=== PATIENT | male | born 1970 | race Caucasian/White ===

== ENCOUNTER 2016-05-24 09:38 | Emergency (ER) | payer OTHER ==
[~2016-05-24 09:38] MED LIST: ABIL5TAB5 PO; PROT1TAB2 PO; ZOLOFT PO
--- NOTE | 2016-05-24 11:37 | EDDOCDS ---
Physician Documentation [facility] Name: Mathew Delgado Age: 45 yrs Sex: Male : 1970 Arrival Date: 05/24/2016 Time: 09:38 Bed 30 Private MD: Unknown Pcp Disposition: 05/24/16 11:26 Discharged to Home/Self Care. Impression: Panic disorder [episodic paroxysmal anxiety] without agoraphobia. - Condition is Stable. - Discharge Instructions: Panic Attacks. - Prescriptions for Hydroxyzine HCl 25 mg Oral Tablet - take 1 tablet by ORAL route every 6 hours As needed; 30 tablet. - Medication Reconciliation, Local Pharmacy Hours form. - Follow up: Private Physician; When: As previously arranged; Reason: Recheck today's complaints, Continuance of care. Follow up: Emergency Department; When: As needed; Reason: Worsening of conditions. - Problem is new. - Symptoms have improved. Historical: - Allergies: Vicodin; - Home Meds: 1. lithium carbonate 300 mg Oral cap 1 cap every other day (Last dose: 05/22/2016) 2. Seroquel 50 mg Oral tab nightly (Last dose: 05/23/2016) 3. sertraline 100 mg oral tab 2 tabs once daily (Last dose: 05/23/2016) 4. pantoprazole 40 mg oral tab 1 tab once daily 5. Ventolin Rotahaler/Rotacaps Inhl 6. diazepam 5 mg Oral tab 1 tab daily hasnt taken in awhile- a week or more - PMHx: Anxiety; - PSHx: Cholecystectomy; - Social history: Smoking status: Patient states was never smoker of tobacco. No barriers to communication noted, The patient speaks fluent Macedonian, Speaks appropriately for age. - Family history: Not pertinent. - : The pt / caregiver states he / she is not on anticoagulants. Home medication list is obtained from the patient. - Exposure Risk Screening:: None identified. Vital Signs: 05/24 09:41 BP 133 / 67; Pulse 69; Resp 18; Temp 97.4(O); Pulse Ox 98% ; Weight 107.05 kg / 236 cmb lbs; Height 6 ft. 0 in. (182.88 cm); Pain 0/10; 11:35 BP 131 / 72; Pulse 65; Resp 20; Temp 97.9; Pulse Ox 96% ; Pain 0/10; jam1 09:41 Body Mass Index 32.01 (107.05 kg, 182.88 cm) cmb MDM: 09:50 ECG WITH READING ER PHYS+CARDIAG ordered. EDMS 10:45 REGULAR DIET PLASTIC THORPE+DIET ordered. EDMS 11:34 Financial registration complete. lg Signatures: Dispatcher [employer] EDMS Mary Hernandez, RN RN srm Michele Rome, Reg Reg lg Chuck Gutierrez PA-C PA-C ar2 Berenice Matthews RN RN mk4 MTDD
--- NOTE | 2016-05-24 11:37 | EDDOCDS ---
Nurse's Notes [facility] Name: Mathew Delgado Age: 45 yrs Sex: Male : 1970 Arrival Date: 05/24/2016 Time: 09:38 Bed 30 Private MD: Unknown Pcp Diagnosis: Panic disorder [episodic paroxysmal anxiety] without agoraphobia Presentation: 05/24 09:45 Presenting complaint: Patient states: i woke up at 0600 with heart racing, SOB and srm weakness. when asked if hes feeling anxious pt states " too the extreme". symptoms worse than normal for his anxiety attacks. denies SI or HI. 09:48 Mental Health Triage Level: Level 1- Pt displays no suicidal or homicidal ideations and srm does not appear to be a danger to self or others. Adult Sepsis Screening: The patient does not have new or worsening altered mentation. Patient's respiratory rate is less than 22. Systolic blood pressure is greater than 100. Patient has a qSOFA score of 0- Negative Sepsis Screen. Suicide/Homicide risk assessment- Patient denies SI and HI but presents with another emotional, behavioral or other mental health complaint. Suicide/Homicide risk assessment- The patient reports that he/she has not been admitted to an inpatient mental health facility in the last 30 days. The patient reports that he/she does not have a recent or current history of substance abuse. The patient reports that he/she has no prior history of suicide attempt and/or organized plan. The patient reports that he/she has not experienced a significant life altering event in the last 30 days. The patient reports that he/she has adequate social support. Status: Patient is not a child and family services specialist or dependent. Transition of care: patient was not received from another setting of care. 09:48 Acuity: ANTONETTE Level 3 srm 09:48 Method Of Arrival: Walkin/Carried/Asstd srm Triage Assessment: 09:48 General: Appears in no apparent distress, Behavior is appropriate for age, cooperative. srm Pain: Denies pain. HIV screening NA for this visit Offered previously. Historical: - Allergies: Vicodin; - Home Meds: 1. lithium carbonate 300 mg Oral cap 1 cap every other day (Last dose: 05/22/2016) 2. Seroquel 50 mg Oral tab nightly (Last dose: 05/23/2016) 3. sertraline 100 mg oral tab 2 tabs once daily (Last dose: 05/23/2016) 4. pantoprazole 40 mg oral tab 1 tab once daily 5. Ventolin Rotahaler/Rotacaps Inhl 6. diazepam 5 mg Oral tab 1 tab daily hasnt taken in awhile- a week or more - PMHx: Anxiety; - PSHx: Cholecystectomy; - Social history: Smoking status: Patient states was never smoker of tobacco. No barriers to communication noted, The patient speaks fluent Malagasy, Speaks appropriately for age. - Family history: Not pertinent. - : The pt / caregiver states he / she is not on anticoagulants. Home medication list is obtained from the patient. - Exposure Risk Screening:: None identified. Screenin:51 Screening information is obtained from the patient. Fall risk: No risks identified. srm Assistance ADL's: requires no assistance with activities of daily living. Abuse/DV Screen: The patient / caregiver reports he/she is: not in a situation that causes fear, pain or injury. Nutritional screening: No deficits noted. Advance Directives: There is no active DNR order. home support is adequate. Assessment: 09:51 General: Appears in no apparent distress, Behavior is appropriate for age, cooperative. srm Neurological: No deficits noted. EENT: No deficits noted. Cardiovascular: Reports palpitations, shortness of breath. Respiratory: No deficits noted. GI: No deficits noted. 10:45 General: Appears in no apparent distress, Behavior is appropriate for age, cooperative, srm AWAITING PROVIDER EXAM. 10:56 General: Appears in no apparent distress, social media marketing specialist in speaking with pt. 4 11:33 General: Appears in no apparent distress. 4 11:34 Reassessment: Patient states feeling better. Patient states symptoms have improved. 4 Social Work Consult: 10:59 Social Work Note: Pt presented c/o anxiety. Pt states he is in treatment at [facility], has appointment with Marlyn Ramirez next Monday. Pt denies SI/HI, no AH/VH. Pt states he came to ED primarily because he was having "palpitations" and is more concerned about getting something for his palpitations. Pt denies any unmet psycho-social needs at this time. Psych: 09:52 Mental Health Triage Level: Level 1- Pt displays no suicidal or homicidal ideations and srm does not appear to be a danger to self or others. 09:52 Objective: Patient is cooperative, Speech is normal. Vital Signs: 09:41 BP 133 / 67; Pulse 69; Resp 18; Temp 97.4(O); Pulse Ox 98% ; Weight 107.05 kg; Height 6 cmb ft. 0 in. (182.88 cm); Pain 0/10; 11:35 BP 131 / 72; Pulse 65; Resp 20; Temp 97.9; Pulse Ox 96% ; Pain 0/10; jam1 09:41 Body Mass Index 32.01 (107.05 kg, 182.88 cm) cmb Vitals: 09:41 Log In Time: May 24, 2016 at 09:38. cmb ED Course: 09:40 Patient visited by Mary Yousif. cmb 09:40 Patient moved to Waiting cmb 09:41 Unknown Pcp is Private Physician. cmb 09:49 Triage Initiated srm 09:50 Patient moved to 30 srm 09:51 The patient / caregiver is instructed regarding the plan of care and ED course. Patient srm has correct armband on for positive identification. 10:00 EKG done. (by ED staff). Reviewed by Lola Vance MD. srm 10:45 Patient visited by Mary Hernandez RN. srm 11:15 Chuck Gutier[facility] ar2 11:15 Lola Vance MD is Attending Physician. ar2 11:16 Patient visited by Chuck Gutierrez PA-C. ar2 11:34 No IV's were initiated during this patient's visit. No procedures done that require mk4 assistance. Order Results: There are currently no results for this order. Outcome: 11:26 Discharge ordered by Provider. ar2 11:34 Discharge Assessment: Patient awake, alert and oriented x 3. No cognitive and/or mk4 functional deficits noted. Patient verbalized understanding of disposition instructions. Patient awake and alert. patient administered narcotics - no. The following High Risk Discharge criteria are identified: None. Discharged to home ambulatory. Condition: good Condition: stable. No special radiology studies were completed. Property sent home with patient. 11:36 Patient left the ED. mk4 Signatures: Mary Hernandez, SIOBHAN RN srm Fabiana Velásquez, LADONNA CLERK GUIDE Sukhwinder Lawton, PSA PSA ac Chuck Gutierrez PA-C PAJamisonC ar2 Mary Yousif Margaret, RN RN mk4 MTDD
--- NOTE | 2016-05-25 19:36 | ECGEPIP ---
Stationary ECG Study [facility] - ED Test Date: 2016-05-24 Pat Name: NAVEED NAVARRO Department: Room: - Gender: M Swatcher: shahab : 1970 Requested By: Lola Vance Order Number: [id number] Reading MD: Lola Vance Measurements Intervals [place] Rate: 63 P: 42 HI: 137 QRS: -20 QRSD: 108 T: 22 QT: 375 QTc: 384 Interpretive Statements SINUS RHYTHM ?PRIOR INFERIOR INFARCT COMPARED 05/09/16 Electronically Signed On 05-25-2016 19:35:45 EST by Lola Vance
--- NOTE | 2016-05-26 12:38 | EDDOCDS ---
Physician Documentation [facility] Name: Mathew Delgado Age: 45 yrs Sex: Male : 1970 Arrival Date: 05/24/2016 Time: 09:38 Bed 30 Private MD: Unknown Pcp Disposition: 05/24/16 11:26 Discharged to Home/Self Care. Impression: Panic disorder [episodic paroxysmal anxiety] without agoraphobia. - Condition is Stable. - Discharge Instructions: Panic Attacks. - Prescriptions for Hydroxyzine HCl 25 mg Oral Tablet - take 1 tablet by ORAL route every 6 hours As needed; 30 tablet. - Medication Reconciliation, Local Pharmacy Hours form. - Follow up: Private Physician; When: As previously arranged; Reason: Recheck today's complaints, Continuance of care. Follow up: Emergency Department; When: As needed; Reason: Worsening of conditions. - Problem is new. - Symptoms have improved. Historical: - Allergies: Vicodin; - Home Meds: 1. lithium carbonate 300 mg Oral cap 1 cap every other day (Last dose: 05/22/2016) 2. Seroquel 50 mg Oral tab nightly (Last dose: 05/23/2016) 3. sertraline 100 mg oral tab 2 tabs once daily (Last dose: 05/23/2016) 4. pantoprazole 40 mg oral tab 1 tab once daily 5. Ventolin Rotahaler/Rotacaps Inhl 6. diazepam 5 mg Oral tab 1 tab daily hasnt taken in awhile- a week or more - PMHx: Anxiety; - PSHx: Cholecystectomy; - Social history: Smoking status: Patient states was never smoker of tobacco. No barriers to communication noted, The patient speaks fluent Occitan, Speaks appropriately for age. - Family history: Not pertinent. - : The pt / caregiver states he / she is not on anticoagulants. Home medication list is obtained from the patient. - Exposure Risk Screening:: None identified. Vital Signs: 05/24 09:41 BP 133 / 67; Pulse 69; Resp 18; Temp 97.4(O); Pulse Ox 98% ; Weight 107.05 kg / 236 cmb lbs; Height 6 ft. 0 in. (182.88 cm); Pain 0/10; 11:35 BP 131 / 72; Pulse 65; Resp 20; Temp 97.9; Pulse Ox 96% ; Pain 0/10; jam1 09:41 Body Mass Index 32.01 (107.05 kg, 182.88 cm) cmb MDM: 09:50 ECG WITH READING ER PHYS+CARDIAG ordered. EDMS 10:45 REGULAR DIET PLASTIC THORPE+DIET ordered. EDMS 11:34 Financial registration complete. lg 12:38 T-Sheet-- Draft Copy was scanned into MED[employer] and attached to record. gb 12:38 ECG/EKG was scanned into [employer] and attached to record. gb 05/25 07:51 [facility] Payment Agreement was scanned into [employer] and attached to record. lg Signatures: Dispatcher [employer] EDMS Mary Hernandez, RN RN srm Charity Trevino, Reg Reg gb Michele Rome, Reg Reg lg Chuck Gutierrez, PA-C PA-C ar2 Berenice Matthews RN RN mk4 The chart was reviewed and I authenticate all verbal orders and agree with the evaluation and treatment provided.Attachments: 05/24 12:38 T-Sheet-- Draft Copy gb 12:38 ECG/EKG gb 05/25 07:51 [facility] Payment Agreement lg Chart Complete MTDD
--- NOTE | 2016-05-26 12:38 | EDDOCDS ---
Physician Documentation [facility] Name: Mathew Delgado Age: 45 yrs Sex: Male : 1970 Arrival Date: 05/24/2016 Time: 09:38 Bed 30 Private MD: Unknown Pcp Disposition: 05/24/16 11:26 Discharged to Home/Self Care. Impression: Panic disorder [episodic paroxysmal anxiety] without agoraphobia. - Condition is Stable. - Discharge Instructions: Panic Attacks. - Prescriptions for Hydroxyzine HCl 25 mg Oral Tablet - take 1 tablet by ORAL route every 6 hours As needed; 30 tablet. - Medication Reconciliation, Local Pharmacy Hours form. - Follow up: Private Physician; When: As previously arranged; Reason: Recheck today's complaints, Continuance of care. Follow up: Emergency Department; When: As needed; Reason: Worsening of conditions. - Problem is new. - Symptoms have improved. Historical: - Allergies: Vicodin; - Home Meds: 1. lithium carbonate 300 mg Oral cap 1 cap every other day (Last dose: 05/22/2016) 2. Seroquel 50 mg Oral tab nightly (Last dose: 05/23/2016) 3. sertraline 100 mg oral tab 2 tabs once daily (Last dose: 05/23/2016) 4. pantoprazole 40 mg oral tab 1 tab once daily 5. Ventolin Rotahaler/Rotacaps Inhl 6. diazepam 5 mg Oral tab 1 tab daily hasnt taken in awhile- a week or more - PMHx: Anxiety; - PSHx: Cholecystectomy; - Social history: Smoking status: Patient states was never smoker of tobacco. No barriers to communication noted, The patient speaks fluent Maltese, Speaks appropriately for age. - Family history: Not pertinent. - : The pt / caregiver states he / she is not on anticoagulants. Home medication list is obtained from the patient. - Exposure Risk Screening:: None identified. Vital Signs: 05/24 09:41 BP 133 / 67; Pulse 69; Resp 18; Temp 97.4(O); Pulse Ox 98% ; Weight 107.05 kg / 236 cmb lbs; Height 6 ft. 0 in. (182.88 cm); Pain 0/10; 11:35 BP 131 / 72; Pulse 65; Resp 20; Temp 97.9; Pulse Ox 96% ; Pain 0/10; jam1 09:41 Body Mass Index 32.01 (107.05 kg, 182.88 cm) cmb MDM: 09:50 ECG WITH READING ER PHYS+CARDIAG ordered. EDMS 10:45 REGULAR DIET PLASTIC THORPE+DIET ordered. EDMS 11:34 Financial registration complete. lg 12:38 T-Sheet-- Draft Copy was scanned into MED[employer] and attached to record. gb 12:38 ECG/EKG was scanned into [employer] and attached to record. gb 05/25 07:51 [facility] Payment Agreement was scanned into MEDHOST and attached to record. lg Signatures: Dispatcher [employer] EDMS Mary Hernandez, RN RN srm Charity Trevino, Reg Reg gb Michele Rome, Reg Reg lg Chuck Gutierrez, PA-C PA-C ar2 Berenice Matthwes RN RN mk4 The chart was reviewed and I authenticate all verbal orders and agree with the evaluation and treatment provided.Attachments: 05/24 12:38 T-Sheet-- Draft Copy gb 12:38 ECG/EKG gb 05/25 07:51 [facility] Payment Agreement lg Chart Complete MTDD
--- NOTE | 2016-05-26 12:38 | EDDOCDS ---
Nurse's Notes [facility] Name: Mathew Delgado Age: 45 yrs Sex: Male : 1970 Arrival Date: 05/24/2016 Time: 09:38 Bed 30 Private MD: Unknown Pcp Diagnosis: Panic disorder [episodic paroxysmal anxiety] without agoraphobia Presentation: 05/24 09:45 Presenting complaint: Patient states: i woke up at 0600 with heart racing, SOB and srm weakness. when asked if hes feeling anxious pt states " too the extreme". symptoms worse than normal for his anxiety attacks. denies SI or HI. 09:48 Mental Health Triage Level: Level 1- Pt displays no suicidal or homicidal ideations and srm does not appear to be a danger to self or others. Adult Sepsis Screening: The patient does not have new or worsening altered mentation. Patient's respiratory rate is less than 22. Systolic blood pressure is greater than 100. Patient has a qSOFA score of 0- Negative Sepsis Screen. Suicide/Homicide risk assessment- Patient denies SI and HI but presents with another emotional, behavioral or other mental health complaint. Suicide/Homicide risk assessment- The patient reports that he/she has not been admitted to an inpatient mental health facility in the last 30 days. The patient reports that he/she does not have a recent or current history of substance abuse. The patient reports that he/she has no prior history of suicide attempt and/or organized plan. The patient reports that he/she has not experienced a significant life altering event in the last 30 days. The patient reports that he/she has adequate social support. Status: Patient is not a support services specialist or dependent. Transition of care: patient was not received from another setting of care. 09:48 Acuity: ANTONETTE Level 3 srm 09:48 Method Of Arrival: Walkin/Carried/Asstd srm Triage Assessment: 09:48 General: Appears in no apparent distress, Behavior is appropriate for age, cooperative. srm Pain: Denies pain. HIV screening NA for this visit Offered previously. Historical: - Allergies: Vicodin; - Home Meds: 1. lithium carbonate 300 mg Oral cap 1 cap every other day (Last dose: 05/22/2016) 2. Seroquel 50 mg Oral tab nightly (Last dose: 05/23/2016) 3. sertraline 100 mg oral tab 2 tabs once daily (Last dose: 05/23/2016) 4. pantoprazole 40 mg oral tab 1 tab once daily 5. Ventolin Rotahaler/Rotacaps Inhl 6. diazepam 5 mg Oral tab 1 tab daily hasnt taken in awhile- a week or more - PMHx: Anxiety; - PSHx: Cholecystectomy; - Social history: Smoking status: Patient states was never smoker of tobacco. No barriers to communication noted, The patient speaks fluent Egyptian, Speaks appropriately for age. - Family history: Not pertinent. - : The pt / caregiver states he / she is not on anticoagulants. Home medication list is obtained from the patient. - Exposure Risk Screening:: None identified. Screenin:51 Screening information is obtained from the patient. Fall risk: No risks identified. srm Assistance ADL's: requires no assistance with activities of daily living. Abuse/DV Screen: The patient / caregiver reports he/she is: not in a situation that causes fear, pain or injury. Nutritional screening: No deficits noted. Advance Directives: There is no active DNR order. home support is adequate. Assessment: 09:51 General: Appears in no apparent distress, Behavior is appropriate for age, cooperative. srm Neurological: No deficits noted. EENT: No deficits noted. Cardiovascular: Reports palpitations, shortness of breath. Respiratory: No deficits noted. GI: No deficits noted. 10:45 General: Appears in no apparent distress, Behavior is appropriate for age, cooperative, srm AWAITING PROVIDER EXAM. 10:56 General: Appears in no apparent distress, social contact worker in speaking with pt. 4 11:33 General: Appears in no apparent distress. 4 11:34 Reassessment: Patient states feeling better. Patient states symptoms have improved. 4 Social Work Consult: 10:59 Social Work Note: Pt presented c/o anxiety. Pt states he is in treatment at [facility], has appointment with Marlyn Ramirez next Monday. Pt denies SI/HI, no AH/VH. Pt states he came to ED primarily because he was having "palpitations" and is more concerned about getting something for his palpitations. Pt denies any unmet psycho-social needs at this time. Psych: 09:52 Mental Health Triage Level: Level 1- Pt displays no suicidal or homicidal ideations and srm does not appear to be a danger to self or others. 09:52 Objective: Patient is cooperative, Speech is normal. Vital Signs: 09:41 BP 133 / 67; Pulse 69; Resp 18; Temp 97.4(O); Pulse Ox 98% ; Weight 107.05 kg; Height 6 cmb ft. 0 in. (182.88 cm); Pain 0/10; 11:35 BP 131 / 72; Pulse 65; Resp 20; Temp 97.9; Pulse Ox 96% ; Pain 0/10; jam1 09:41 Body Mass Index 32.01 (107.05 kg, 182.88 cm) cmb Vitals: 09:41 Log In Time: May 24, 2016 at 09:38. cmb ED Course: 09:40 Patient visited by Mary Yousif. cmb 09:40 Patient moved to Waiting cmb 09:41 Unknown Pcp is Private Physician. cmb 09:49 Triage Initiated srm 09:50 Patient moved to 30 srm 09:51 The patient / caregiver is instructed regarding the plan of care and ED course. Patient srm has correct armband on for positive identification. 10:00 EKG done. (by ED staff). Reviewed by Lola Vance MD. srm 10:45 Patient visited by Mary Hernandez RN. srm 11:15 Chuck Gutierrez PA-C is PHCP. ar2 11:15 Lola Vance MD is Attending Physician. ar2 11:16 Patient visited by Chuck Gutierrez PA-C. ar2 11:34 No IV's were initiated during this patient's visit. No procedures done that require mk4 assistance. 12:38 T-Sheet-- Draft Copy was scanned into [employer] and attached to record. gb 12:38 ECG/EKG was scanned into [employer] and attached to record. gb 05/25 07:51 [facility] Payment Agreement was scanned into [employer] and attached to record. lg 20:04 EKG-ADULT Returned. EDMS Order Results: Radiology Order: EKG-ADULT Test: EKG-ADULT REASON FOR EXAMINATION: heart racing; Stationary ECG Study; [facility] - ED; ; Test Date: 2016-05-24; Pat Name: MATHEW DELGADO Department:; Room: -; Gender: M Infant Nanny: shahab; : 1970 Requested By: Lola Vance; Order Number: [id number] Reading MD: Lola Vance; Measurements; Intervals [place]; Rate: 63 P: 42; ID: [id number] QRS: -20; QRSD: 108 T: 22; QT: 375; QTc: 384; Interpretive Statements; SINUS RHYTHM; ?PRIOR INFERIOR INFARCT COMPARED 05/09/16; Electronically Signed On 05-25-2016 19:35:45 EST by Lola Vance; Outcome: 05/24 11:26 Discharge ordered by Provider. ar2 11:34 Discharge Assessment: Patient awake, alert and oriented x 3. No cognitive and/or mk4 functional deficits noted. Patient verbalized understanding of disposition instructions. Patient awake and alert. patient administered narcotics - no. The following High Risk Discharge criteria are identified: None. Discharged to home ambulatory. Condition: good Condition: stable. No special radiology studies were completed. Property sent home with patient. 11:36 Patient left the ED. mk4 Signatures: Dispatcher [employer] EDMS Mary Hernandez, RN RN srm Fabiana Velásquez, BARREL LATHE OPERATOR INSIDE BARREL LATHE OPERATOR INSIDE jam1 Sukhwinder Frye, PSA PSA ac Charity Trevino, Reg Reg gb Michele Rome, Reg Reg lg Chuck Gutierrez, PA-Feroz PAGeorgina ar2 Mary Yousif Margaret, RN RN mk4 Chart Complete MTDD
== END 2016-05-24 11:36 | disposition home or self-care (01) ==
LOC: M ED 09:38
DX: F41.0 Panic disorder [episodic paroxysmal anxiety] (principal); Z79.899 Other long term (current) drug therapy; Z79.51 Long term (current) use of inhaled steroids; Z88.8 Allergy status to other drugs, medicaments and biological substances

== ENCOUNTER 2016-07-13 14:04 | Emergency (ER) | payer OTHER ==
--- NOTE | 2016-07-13 15:18 | EDDOCDS ---
Physician Documentation [facility] Name: Mathew Delgado Age: 45 yrs Sex: Male : 1970 Arrival Date: 07/13/2016 Time: 14:04 Bed PR Private MD: Yuly Mckinney A Disposition: 07/13/16 15:08 Discharged to Home/Self Care. Impression: Low back pain. - Condition is Stable. - Discharge Instructions: Back Pain, Adult. - Prescriptions for Prednisone 20 mg Oral Tablet - take 2 tablets by ORAL route once daily for 5 days TAKE WITH FOOD, EARLIER IN THE DAY.; 10 tablet. - Medication Reconciliation, Local Pharmacy Hours form. - Follow up: Emergency Department; When: As needed; Reason: Worsening of conditions. Follow up: Private Physician; When: 2 - 3 days; Reason: Wound/Symptom Recheck, Recheck today's complaints, Continuance of care. - Problem is new. - Symptoms are unchanged. Historical: - Allergies: Vicodin; - Home Meds: 1. diazepam 5 mg Oral tab 1 tab daily hasnt taken in awhile- a week or more 2. lithium carbonate 300 mg Oral cap 1 cap every other day 3. pantoprazole 40 mg oral tab 1 tab once daily 4. Seroquel 50 mg Oral tab nightly 5. sertraline 100 mg oral tab 2 tabs once daily 6. Ventolin Rotahaler/Rotacaps Inhl - PMHx: Anxiety; - PSHx: Cholecystectomy; - Social history: Smoking status: Patient states was never smoker of tobacco. No barriers to communication noted, The patient speaks fluent Slovak. - Family history: Not pertinent. - : The pt / caregiver states he / she is not on anticoagulants. Home medication list is obtained from the patient. - Exposure Risk Screening:: None identified. Vital Signs: 07/13 14:07 BP 133 / 73; Pulse 73; Resp 19; Temp 96.6; Pulse Ox 98% ; Weight 108.86 kg / 240 lbs; elp Height 6 ft. 0 in. (182.88 cm); 15:16 BP 140 / 78; Pulse 65; Resp 18; Temp 97.8(O); Pulse Ox 98% on R/A; Pain 3/10; ck1 14:07 Body Mass Index 32.55 (108.86 kg, 182.88 cm) elp MDM: 14:28 Spine. Lumbosacral, Complete Ordered. EDMS 14:32 Financial registration complete. lg 14:37 [facility] Payment Agreement was scanned into [employer] and attached to record. lg Signatures: Dispatcher [employer] EDMS Ria Kruse RN RN mcp Ganter, LoriLee, Reg Reg lg Elizabeth Hancock RN RN ck1 Laura Chandler, ABRAHAM ROSARIO dt4 The chart was reviewed and I authenticate all verbal orders and agree with the evaluation and treatment provided.Attachments: 14:37 [facility] Payment Agreement lg MTDD
--- NOTE | 2016-07-13 15:18 | EDDOCDS ---
Nurse's Notes [facility] Name: Mathew Delgado Age: 45 yrs Sex: Male : 1970 Arrival Date: 07/13/2016 Time: 14:04 Bed PR Private MD: Yuly Mckinney A Diagnosis: Low back pain Presentation: 07/13 14:09 Presenting complaint: Patient states: Slipped and fell about a month ago--was seen at [facility] and was given steroid pill x1 and told to take Motrin. Pain persists--no change, worse in am. Radiates to groin and left leg. Adult Sepsis Screening: The patient does not have new or worsening altered mentation. Patient's respiratory rate is less than 22. Systolic blood pressure is greater than 100. Patient has a qSOFA score of 0- Negative Sepsis Screen. Suicide/Homicide risk assessment- the patient denies having any suicidal and/or homicidal ideations and does not present with any other emotional, behavioral or mental health complaints. Status: Patient is not a media services specialist or dependent. Transition of care: patient was not received from another setting of care. 14:09 Acuity: ANTONETTE Level 4 [facility] 14:09 Method Of Arrival: Walkin/Carried/Asstd [facility] Triage Assessment: 14:11 General: Appears uncomfortable, Behavior is cooperative. Pain: Location: lumbar area, mcp left low back and right low back Pain currently is 10 out of 10 on a pain scale. HIV screening NA for this visit Offered previously. Neurological: No deficits noted. Respiratory: Airway is patent Respiratory effort is even, unlabored. Derm: Skin is pink, warm & dry. Musculoskeletal: Circulation, motion, and sensation intact. Historical: - Allergies: Vicodin; - Home Meds: 1. diazepam 5 mg Oral tab 1 tab daily hasnt taken in awhile- a week or more 2. lithium carbonate 300 mg Oral cap 1 cap every other day 3. pantoprazole 40 mg oral tab 1 tab once daily 4. Seroquel 50 mg Oral tab nightly 5. sertraline 100 mg oral tab 2 tabs once daily 6. Ventolin Rotahaler/Rotacaps Inhl - PMHx: Anxiety; - PSHx: Cholecystectomy; - Social history: Smoking status: Patient states was never smoker of tobacco. No barriers to communication noted, The patient speaks fluent Chilean. - Family history: Not pertinent. - : The pt / caregiver states he / she is not on anticoagulants. Home medication list is obtained from the patient. - Exposure Risk Screening:: None identified. Screenin:30 Screening information is obtained from the patient. Fall risk: No risks identified. ck1 Assistance ADL's: requires no assistance with activities of daily living. Abuse/DV Screen: The patient / caregiver reports he/she is: not in a situation that causes fear, pain or injury. Nutritional screening: No deficits noted. Advance Directives: Currently, there is no health care proxy. home support is adequate. Assessment: 14:31 General: Appears in no apparent distress, comfortable, Behavior is appropriate for age, ck1 cooperative. Pain: Location: left low back Pain currently is 7 out of 10 on a pain scale. Pain radiates to left leg. Derm: Skin is intact, is healthy with good turgor, Skin is pink, warm & dry. Musculoskeletal: Circulation, motion, and sensation intact Range of motion intact in all extremities. 15:17 General: Appears in no apparent distress, comfortable, Behavior is appropriate for age, ck1 cooperative. Pain: Location: left low back Pain currently is 3 out of 10 on a pain scale. Neurological: Level of Consciousness is awake, alert, obeys commands, Oriented to person, place, time. Derm: Skin is pink, warm & dry. Musculoskeletal: Circulation, motion, and sensation intact Range of motion intact in all extremities. Vital Signs: 14:07 BP 133 / 73; Pulse 73; Resp 19; Temp 96.6; Pulse Ox 98% ; Weight 108.86 kg; Height 6 elp ft. 0 in. (182.88 cm); 15:16 BP 140 / 78; Pulse 65; Resp 18; Temp 97.8(O); Pulse Ox 98% on R/A; Pain 3/10; ck1 14:07 Body Mass Index 32.55 (108.86 kg, 182.88 cm) [facility] Vitals: 14:07 Log In Time: July 13, 2016 at 14:05. [facility] ED Course: 14:05 Patient visited by Ritu Quintana PCA. elp 14:05 Patient moved to Waiting [facility] 14:06 Yuly Mckinney is Private Physician. elp 14:07 Patient visited by Ritu Quintana PCA. elp 14:07 Patient moved to Pre RCE elp 14:10 Triage Initiated [facility] 14:11 Patient visited by Ria Kruse RN. [facility] 14:11 Patient moved to Triage 2 [facility] 14:20 Laura Chandler [facility]C [facility] dt4 14:20 Lola Vance MD is Attending Physician. dt4 14:20 Patient visited by Laura Chandler PA-C. dt4 14:31 The patient / caregiver is instructed regarding the plan of care and ED course. ck1 14:31 Patient moved to TR1 ck1 14:37 [facility] Payment Agreement was scanned into [employer] and attached to record. lg 14:52 Patient visited by Elizabeth Hancock,SIOBHAN. ck1 15:11 Patient moved to PR1 / 25 ck1 15:17 No IV's were initiated during this patient's visit. No procedures done that require ck1 assistance. Order Results: There are currently no results for this order. Outcome: 15:08 Discharge ordered by Provider. dt4 15:16 Discharge Assessment: Patient awake, alert and oriented x 3. No cognitive and/or ck1 functional deficits noted. Patient verbalized understanding of disposition instructions. patient administered narcotics - no. The following High Risk Discharge criteria are identified: None. Discharged to home ambulatory. Condition: stable. Discharge instructions given to patient, Instructed on discharge instructions, follow up and referral plans. medication usage, Demonstrated understanding of instructions, medications, Pt was receptive of discharge instructions/ teaching. Prescriptions given X 1. No special radiology studies were completed. Property :Personal belongings accompany Pt. 15:17 Patient left the ED. ck1 Signatures: Ria Kruse, SIOBHAN RN [facility] Michele Rome, Reg Reg Elizabeth Hancock,SIOBHAN RN ck Ritu Quintana PCA [employer] elp Laura Chandler PA-C PA-C dt4 MTDD
--- NOTE | 2016-07-13 16:25 | REP ---
LUMBAR SPINE: This study is compared to that on 09/06/2012. The bone density is normal. At L1-L2 left side, there is large bridging osteophyte or spurs unchanged. The vertebral bodies show degenerative spurring particularly anteriorly. This also extends or includes the thoracic segments. The disc spaces are maintained. The facets, SI and hip joints are within normal limits. The soft tissues of the abdomen and pelvis are unremarkable. 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 No disc space narrowing or other significant change. Unreviewed
--- NOTE | 2016-07-15 16:18 | EDDOCDS ---
Nurse's Notes [facility] Name: Mathew Delgado Age: 45 yrs Sex: Male : 1970 Arrival Date: 07/13/2016 Time: 14:04 Bed PR Private MD: Yuly Mckinney A Diagnosis: Low back pain Presentation: 07/13 14:09 Presenting complaint: Patient states: Slipped and fell about a month ago--was seen at [facility] and was given steroid pill x1 and told to take Motrin. Pain persists--no change, worse in am. Radiates to groin and left leg. Adult Sepsis Screening: The patient does not have new or worsening altered mentation. Patient's respiratory rate is less than 22. Systolic blood pressure is greater than 100. Patient has a qSOFA score of 0- Negative Sepsis Screen. Suicide/Homicide risk assessment- the patient denies having any suicidal and/or homicidal ideations and does not present with any other emotional, behavioral or mental health complaints. Status: Patient is not a service worker or dependent. Transition of care: patient was not received from another setting of care. 14:09 Acuity: ANTONETTE Level 4 [facility] 14:09 Method Of Arrival: Walkin/Carried/Asstd [facility] Triage Assessment: 14:11 General: Appears uncomfortable, Behavior is cooperative. Pain: Location: lumbar area, mcp left low back and right low back Pain currently is 10 out of 10 on a pain scale. HIV screening NA for this visit Offered previously. Neurological: No deficits noted. Respiratory: Airway is patent Respiratory effort is even, unlabored. Derm: Skin is pink, warm & dry. Musculoskeletal: Circulation, motion, and sensation intact. Historical: - Allergies: Vicodin; - Home Meds: 1. diazepam 5 mg Oral tab 1 tab daily hasnt taken in awhile- a week or more 2. lithium carbonate 300 mg Oral cap 1 cap every other day 3. pantoprazole 40 mg oral tab 1 tab once daily 4. Seroquel 50 mg Oral tab nightly 5. sertraline 100 mg oral tab 2 tabs once daily 6. Ventolin Rotahaler/Rotacaps Inhl - PMHx: Anxiety; - PSHx: Cholecystectomy; - Social history: Smoking status: Patient states was never smoker of tobacco. No barriers to communication noted, The patient speaks fluent Swiss. - Family history: Not pertinent. - : The pt / caregiver states he / she is not on anticoagulants. Home medication list is obtained from the patient. - Exposure Risk Screening:: None identified. Screenin:30 Screening information is obtained from the patient. Fall risk: No risks identified. ck1 Assistance ADL's: requires no assistance with activities of daily living. Abuse/DV Screen: The patient / caregiver reports he/she is: not in a situation that causes fear, pain or injury. Nutritional screening: No deficits noted. Advance Directives: Currently, there is no health care proxy. home support is adequate. Assessment: 14:31 General: Appears in no apparent distress, comfortable, Behavior is appropriate for age, ck1 cooperative. Pain: Location: left low back Pain currently is 7 out of 10 on a pain scale. Pain radiates to left leg. Derm: Skin is intact, is healthy with good turgor, Skin is pink, warm & dry. Musculoskeletal: Circulation, motion, and sensation intact Range of motion intact in all extremities. 15:17 General: Appears in no apparent distress, comfortable, Behavior is appropriate for age, ck1 cooperative. Pain: Location: left low back Pain currently is 3 out of 10 on a pain scale. Neurological: Level of Consciousness is awake, alert, obeys commands, Oriented to person, place, time. Derm: Skin is pink, warm & dry. Musculoskeletal: Circulation, motion, and sensation intact Range of motion intact in all extremities. Vital Signs: 14:07 BP 133 / 73; Pulse 73; Resp 19; Temp 96.6; Pulse Ox 98% ; Weight 108.86 kg; Height 6 elp ft. 0 in. (182.88 cm); 15:16 BP 140 / 78; Pulse 65; Resp 18; Temp 97.8(O); Pulse Ox 98% on R/A; Pain 3/10; ck1 14:07 Body Mass Index 32.55 (108.86 kg, 182.88 cm) [facility] Vitals: 14:07 Log In Time: July 13, 2016 at 14:05. [facility] ED Course: 14:05 Patient visited by Ritu Quintana PCA. elp 14:05 Patient moved to Waiting [facility] 14:06 Yuly Mckinney is Private Physician. elp 14:07 Patient visited by Ritu Quintana PCA. elp 14:07 Patient moved to Pre RCE elp 14:10 Triage Initiated mcp 14:11 Patient visited by Ria Kruse RN. mcp 14:11 Patient moved to Triage 2 mcp 14:20 [facility] dt4 14:20 Lola Vance MD is Attending Physician. dt4 14:20 Patient visited by Laura Chandler PA-C. dt4 14:31 The patient / caregiver is instructed regarding the plan of care and ED course. ck1 14:31 Patient moved to TR1 ck1 14:37 [facility] Payment Agreement was scanned into [employer] and attached to record. lg 14:52 Patient visited by Elizabeth Hancock RN. ck1 15:11 Patient moved to PR1 / 25 ck1 15:17 No IV's were initiated during this patient's visit. No procedures done that require ck1 assistance. 16:33 Spine. Lumbosacral, Complete Returned. EDMS 07/14 19:17 T-Sheet-- Draft Copy was scanned into [employer] and attached to record. klr Order Results: Radiology Order: Spine. Lumbosacral, Complete Test: Spine. Lumbosacral, Complete REASON FOR EXAMINATION: low back pain; ; LUMBAR SPINE:; ; This study is compared to that on 09/06/2012.; ; The bone density is normal.; ; At L1-L2 left side, there is large bridging osteophyte or spurs unchanged. The; vertebral bodies show degenerative spurring particularly anteriorly. This also; extends or includes the thoracic segments. The disc spaces are maintained.; ; The facets, SI and hip joints are within normal limits.; ; The soft tissues of the abdomen and pelvis are unremarkable.; ; IMPRESSION:; There is degenerative spurring of the spine with bridging osteophytes at L1-L2; left side. No disc space narrowing or other significant change.; ; Unreviewed; Outcome: 07/13 15:08 Discharge ordered by Provider. dt4 15:16 Discharge Assessment: Patient awake, alert and oriented x 3. No cognitive and/or ck1 functional deficits noted. Patient verbalized understanding of disposition instructions. patient administered narcotics - no. The following High Risk Discharge criteria are identified: None. Discharged to home ambulatory. Condition: stable. Discharge instructions given to patient, Instructed on discharge instructions, follow up and referral plans. medication usage, Demonstrated understanding of instructions, medications, Pt was receptive of discharge instructions/ teaching. Prescriptions given X 1. No special radiology studies were completed. Property :Personal belongings accompany Pt. 15:17 Patient left the ED. ck1 Signatures: Dispatcher [employer] EDRia Mathew, RN RN Michele Pepper, Stevo Reg Elizabeth Reddy RN RN ck1 Ritu Quintana, LADONNA MACHINE JOINT CUTTER Laura Sharma, PA-Feroz PAJamisonC dt4 Sol Oates Chart Complete MTDD
--- NOTE | 2016-07-15 16:18 | EDDOCDS ---
Physician Documentation [facility] Name: Mathew Delgado Age: 45 yrs Sex: Male : 1970 Arrival Date: 07/13/2016 Time: 14:04 Bed PR Private MD: Yuly Mckinney A Disposition: 07/13/16 15:08 Discharged to Home/Self Care. Impression: Low back pain. - Condition is Stable. - Discharge Instructions: Back Pain, Adult. - Prescriptions for Prednisone 20 mg Oral Tablet - take 2 tablets by ORAL route once daily for 5 days TAKE WITH FOOD, EARLIER IN THE DAY.; 10 tablet. - Medication Reconciliation, Local Pharmacy Hours form. - Follow up: Emergency Department; When: As needed; Reason: Worsening of conditions. Follow up: Private Physician; When: 2 - 3 days; Reason: Wound/Symptom Recheck, Recheck today's complaints, Continuance of care. - Problem is new. - Symptoms are unchanged. Historical: - Allergies: Vicodin; - Home Meds: 1. diazepam 5 mg Oral tab 1 tab daily hasnt taken in awhile- a week or more 2. lithium carbonate 300 mg Oral cap 1 cap every other day 3. pantoprazole 40 mg oral tab 1 tab once daily 4. Seroquel 50 mg Oral tab nightly 5. sertraline 100 mg oral tab 2 tabs once daily 6. Ventolin Rotahaler/Rotacaps Inhl - PMHx: Anxiety; - PSHx: Cholecystectomy; - Social history: Smoking status: Patient states was never smoker of tobacco. No barriers to communication noted, The patient speaks fluent Frisian. - Family history: Not pertinent. - : The pt / caregiver states he / she is not on anticoagulants. Home medication list is obtained from the patient. - Exposure Risk Screening:: None identified. Vital Signs: 07/13 14:07 BP 133 / 73; Pulse 73; Resp 19; Temp 96.6; Pulse Ox 98% ; Weight 108.86 kg / 240 lbs; elp Height 6 ft. 0 in. (182.88 cm); 15:16 BP 140 / 78; Pulse 65; Resp 18; Temp 97.8(O); Pulse Ox 98% on R/A; Pain 3/10; ck1 14:07 Body Mass Index 32.55 (108.86 kg, 182.88 cm) elp MDM: 14:28 Spine. Lumbosacral, Complete Ordered. EDMS 14:32 Financial registration complete. :37 [facility] Payment Agreement was scanned into [employer] and attached to record. 07/14 19:17 T-Sheet-- Draft Copy was scanned into [employer] and attached to record. klr Signatures: Dispatcher [employer] EDSD Ria Kruse RN RN Michele Pepper, Reg Reg Xochilt-Elizabeth CortezRN RN ck1 Laura Chandler, ABRAHAM PAGeorgina moore4 Sol Oates The chart was reviewed and I authenticate all verbal orders and agree with the evaluation and treatment provided.Attachments: 07/13 14:37 [facility] Payment Agreement 07/14 19:17 T-Sheet-- Draft Copy klr Chart Complete MTDD
--- NOTE | 2016-07-15 16:18 | EDDOCDS ---
Physician Documentation [facility] Name: Mathew Delgado Age: 45 yrs Sex: Male : 1970 Arrival Date: 07/13/2016 Time: 14:04 Bed PR Private MD: Yuly Mckinney A Disposition: 07/13/16 15:08 Discharged to Home/Self Care. Impression: Low back pain. - Condition is Stable. - Discharge Instructions: Back Pain, Adult. - Prescriptions for Prednisone 20 mg Oral Tablet - take 2 tablets by ORAL route once daily for 5 days TAKE WITH FOOD, EARLIER IN THE DAY.; 10 tablet. - Medication Reconciliation, Local Pharmacy Hours form. - Follow up: Emergency Department; When: As needed; Reason: Worsening of conditions. Follow up: Private Physician; When: 2 - 3 days; Reason: Wound/Symptom Recheck, Recheck today's complaints, Continuance of care. - Problem is new. - Symptoms are unchanged. Historical: - Allergies: Vicodin; - Home Meds: 1. diazepam 5 mg Oral tab 1 tab daily hasnt taken in awhile- a week or more 2. lithium carbonate 300 mg Oral cap 1 cap every other day 3. pantoprazole 40 mg oral tab 1 tab once daily 4. Seroquel 50 mg Oral tab nightly 5. sertraline 100 mg oral tab 2 tabs once daily 6. Ventolin Rotahaler/Rotacaps Inhl - PMHx: Anxiety; - PSHx: Cholecystectomy; - Social history: Smoking status: Patient states was never smoker of tobacco. No barriers to communication noted, The patient speaks fluent Luxembourgish. - Family history: Not pertinent. - : The pt / caregiver states he / she is not on anticoagulants. Home medication list is obtained from the patient. - Exposure Risk Screening:: None identified. Vital Signs: 07/13 14:07 BP 133 / 73; Pulse 73; Resp 19; Temp 96.6; Pulse Ox 98% ; Weight 108.86 kg / 240 lbs; elp Height 6 ft. 0 in. (182.88 cm); 15:16 BP 140 / 78; Pulse 65; Resp 18; Temp 97.8(O); Pulse Ox 98% on R/A; Pain 3/10; ck1 14:07 Body Mass Index 32.55 (108.86 kg, 182.88 cm) elp MDM: 14:28 Spine. Lumbosacral, Complete Ordered. EDMS 14:32 Financial registration complete. :37 [facility] Payment Agreement was scanned into [employer] and attached to record. 07/14 19:17 T-Sheet-- Draft Copy was scanned into [employer] and attached to record. klr Signatures: Dispatcher [employer] EDAK Ria Kruse RN RN Michele Pepper, Reg Reg Xochilt-Elizabeth CortezRN RN ck1 Laura Chandler, ABRAHAM PAGeorgina moore4 Sol Oates The chart was reviewed and I authenticate all verbal orders and agree with the evaluation and treatment provided.Attachments: 07/13 14:37 [facility] Payment Agreement 07/14 19:17 T-Sheet-- Draft Copy klr Chart Complete MTDD
== END 2016-07-13 15:17 | disposition home or self-care (01) ==
LOC: M ED 14:04
DX: M54.5 Low back pain (principal); F41.9 Anxiety disorder, unspecified; Z79.899 Other long term (current) drug therapy; Z88.5 Allergy status to narcotic agent

== ENCOUNTER 2018-12-09 00:10 | Emergency (ER) | payer OTHER ==
[~2018-12-09] VITALS: Ht 182.9 cm; Wt 118.2 kg
[~2018-12-09 00:10] MED LIST changes: +ABIL1TAB11 PO; -ABIL5TAB5 PO
[2018-12-09 00:11] VITALS: BP 156/83
== END 2018-12-09 02:00 | disposition left against medical advice (07) ==
LOC: M ED 00:10
DX: R06.02 Shortness of breath (principal); Z53.21 Procedure and treatment not carried out due to patient leaving prior to being seen by health care provider

== ENCOUNTER 2020-06-22 08:53 | Emergency (ER) | payer OTHER ==
--- OUTSIDE RECORDS SUMMARY | 2020-06-22 09:03 | CCD ---
Author Author [facility] Organization [facility] Address Unknown Phone Unavailable Care Team Providers [employer] Name Role Phone Pinky Lawler Unavailable PROBLEMS Type Condition ICD9-CM Code VSO89-EH Code Onset Dates Condition S tatus SNOMED Code Notes Problem Morbid (severe) obesity due to excess calories E66 .01 Active 381746326 Problem Encounter for immunization Z23 Active 26794 6002 Problem Allergic rhinitis J30.9 Active 20083831 Problem Weight loss R63.4 Active 99212470 Problem Vaccine counseling Z71.89 Active 781035339 Problem Hyperlipidemia E78.5 Active 49366972 Problem Panic disorder without agoraphobia F41.0 Activ e 93901240 Problem Post-traumatic stress disorder F43.10 Active 4 0720186 Problem Body mass index (BMI) 45.0-49.9, adult Z68.42 A ctive 777905350 Problem Panic F41.0 Active 09289691 Problem BMI 40.0-44.9, adult Z68.41 Active 272840424 Problem Sciatica, left side M54.32 Active 89425576 Problem Anxiety disorder, unspecified F41.9 Active 19 4726288 Problem Sciatica, right side M54.31 Active 47263372182 436505 Problem Borderline personality disorder F60.3 Active 15306575 Problem Other and unspecified hyperlipidemia 272.4 Act [place] 10871055 Problem Gastro-esophageal reflux disease without esophagitis K21.9 Active 899524127 Problem Adjustment disorder with mixed anxiety and depressed mood F43.23 Active 277139880 r/t pandemic Problem Class 2 obesity due to exces s calories without serious comorbidity in adult, unspecified BMI E66.09 Active 941149345 Problem Benign prostatic hyperplasia , unspecified whether lower urinary tract symptoms present N40.0 Active 433379245 ALLERGIES No Known Allergies ENCOUNTERS from 1972 to 2020-04-30 Encounter Location Date Provider Diagnosis [address] [address] Apr, Pinky Lawler IMMUNIZATIONS Vaccine Route Administration Date Status INFLUENZA 3 YRS AND OLDER Preservative free Unknown Apr 24, 2018 Administered INFLUENZA 3 YRS AND OLDER Preservative free IM Intramuscular Mar 28, 2016 Administered SOCIAL HISTORY Sex Assigned At : Social History Observation Description Sex Assigned At Unknown Alcohol Screen Question Answer Notes Did you have a drink containing alcohol in the past year? No Points 0 Interpretation Negative REASON FOR REFERRAL No Information VITAL SIGNS No information MEDICATIONS Medication SIG (Take, Route, Frequency, Duration) Notes Start Da te End Date Status Albuterol Sulfate HFA 108 (90 Base) MCG/ACT 2 puffs as needed Inhalation every 4 hrs for 17 Active Halcion 0.25 MG 1 tablet Orally qhs prn only Jul, Active Lipitor 20 MG 1 tablet Orally Once a day for 90 days 2019 Active HydrOXYzine HCl 25 MG 2 Orally every 8 hrs Jun, Active physical therapy eval and tx - - - -3x per week for -6 weeks Feb, Active Pantoprazole Sodium 40 MG 1 tablet Orally Once a day for 30 days Active Seroquel 100 MG ii tablet Orally HS Active Saphris 10 MG 1 tablet under the tongue an d allow to dissolve Sublingual Twice a day Active Flomax 0.4 MG 1 capsule Orally Once a day for 90 day(s) Feb, Active [place] Carbonate 300 MG TAKE ONE TABLET BY MOUTH IN THE EVENING Or ally qd Active Propranolol HCl 20 MG 1 tablet Orally tid Nov, Active physical therapy eval and tx - - - -3x per week for -6 weeks Feb, Active Zoloft 100 MG TAKE ONE TABLET BY MOUTH EVERY DAY Orally Once a day Active PROCEDURES No Information RESULTS No Results REASON FOR VISIT Disability Records MEDICAL (GENERAL) HISTORY Type Description Date Medical History GERD Medical History Anxiety Medical History Obesity Medical History Allergic rhinitis Surgical History Laparscopic Cholecystectomy 04/05/12 Hospitalization History Chest pain Goals Section No Information Health Concerns No Information MEDICAL EQUIPMENT No Information MENTAL STATUS No Information FUNCTIONAL STATUS No Information ASSESSMENTS No Information PLAN OF TREATMENT Next Appt Details Provider Name:Pinky Lawler, 05-12 01:20:00 PM, [address] [place] [address], [phone], Insurance Providers Payer Name Payer Address Payer Phone Insured Name Patient Relati onship to Insured Coverage Start Date Coverage End Date [employer] - [employer] [address] [place] [id number] Mathew Delgado self
--- OUTSIDE RECORDS SUMMARY | 2020-06-22 09:04 | CCD ---
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 Name Role Phone SYMENOW, G CHRISTOPHER PA Unavailable Unavailable SYMENOW, G CHRISTOPHER PA Unavailable Unavailable SYMENOW, G CHRISTOPHER PA Unavailable Unavailable SYMENOW, G CHRISTOPHER PA Unavailable Unavailable SYMENOW, G CHRISTOPHER PA Unavailable Unavailable SYMENOW, G CHRISTOPHER PA Unavailable Unavailable SYMENOW, G CHRISTOPHER PA Unavailable Unavailable SYMENOW, G CHRISTOPHER PA Unavailable Unavailable SYMENOW, G CHRISTOPHER PA Unavailable Unavailable SYMENOW, G CHRISTOPHER PA Unavailable Unavailable SYMENOW, G CHRISTOPHER PA Unavailable Unavailable SYMENOW, G CHRISTOPHER PA Unavailable Unavailable SYMENOW, G CHRISTOPHER PA Unavailable Unavailable SYMENOW, G CHRISTOPHER PA Unavailable Unavailable SYMENOW, G CHRISTOPHER PA Unavailable Unavailable SYMENOW, G CHRISTOPHER PA Unavailable Unavailable SYMENOW, G CHRISTOPHER PA Unavailable Unavailable GERALDOAyo PA Unavailable Unavailable GERALDOAyo PA Unavailable Unavailable GERALDOAyo PA Unavailable Unavailable GERALDOAyo PA Unavailable Unavailable GERALDOAyo PA Unavailable Unavailable GERALDOAyo PA Unavailable Unavailable GERALDOAyo PA Unavailable Unavailable GERALDOAyo PA Unavailable Unavailable GERALDOAyo PA Unavailable Unavailable GERALDOAyo PA Unavailable Unavailable GERALDOAyo PA Unavailable Unavailable GERALDOAyo PA Unavailable Unavailable GERALDOAyo PA Unavailable Unavailable GERALDO, L RICKY PA Unavailable Unavailable GERALDO, L RICKY PA Unavailable Unavailable GERALDO, L RICKY PA Unavailable Unavailable GERALDO, L RICKY PA Unavailable Unavailable GERALDO, L RICKY PA Unavailable Unavailable GERALDO, L RICKY PA Unavailable Unavailable CHRISTINE, ANTONIO PA Unavailable Unavailable CHRISTINE, ANTONIO PA Unavailable Unavailable CHRISTINE, ANTONIO PA Unavailable Unavailable CHRISTINE, ANTONIO PA Unavailable Unavailable CHRISTINE, ANTONIO PA Unavailable Unavailable CHRISTINE, ANTONIO PA Unavailable Unavailable CHRISTINE, ANTONIO PA Unavailable Unavailable CHRISTINE, ANTONIO PA Unavailable Unavailable CHRISTINE, ANTONIO PA Unavailable Unavailable CHRISTINE, ANTONIO PA Unavailable Unavailable CHRISTINE, ANTONIO PA Unavailable Unavailable CHRISTINE, ANTONIO PA Unavailable Unavailable CHRISTINE, ANTONIO PA Unavailable Unavailable CHRISTINE, ANTONIO PA Unavailable Unavailable CHRISTINE, ANTONIO PA Unavailable Unavailable Ayo HAYDEN MD Unavailable Unavailable Ayo HAYDEN MD Unavailable Unavailable Ayo HAYDEN MD Unavailable Unavailable CHIN, W PENG PA Unavailable Unavailable CHIN, W PENG PA Unavailable Unavailable CHIN, W PENG PA Unavailable Unavailable CHIN, W PENG PA Unavailable Unavailable CHIN, W PENG PA Unavailable Unavailable CHIN, W PENG PA Unavailable Unavailable CHIN, W PENG PA Unavailable Unavailable CHIN, W PENG PA Unavailable Unavailable CHIN, W PENG PA Unavailable Unavailable CHNI, W PENG PA Unavailable Unavailable CHIN, W PENG PA Unavailable Unavailable CHIN, W PENG PA Unavailable Unavailable CHIN, W PENG PA Unavailable Unavailable CHIN, W PENG PA Unavailable Unavailable CHIN, W PENG PA Unavailable Unavailable CHIN, W PENG PA Unavailable Unavailable CHIN, W PENG PA Unavailable Unavailable CHIN, W PENG PA Unavailable Unavailable CHIN, W PENG PA Unavailable Unavailable CHIN, W PENG PA Unavailable Unavailable CHIN, W PENG PA Unavailable Unavailable CHIN, W PENG PA Unavailable Unavailable CHIN, W PENG PA Unavailable Unavailable CHIN, W PENG PA Unavailable Unavailable CHIN, W PENG PA Unavailable Unavailable CHIN, W PENG PA Unavailable Unavailable CHIN, W PENG PA Unavailable Unavailable CHIN, W PNEG PA Unavailable Unavailable CHIN, W PENG PA Unavailable Unavailable CHIN, W PENG PA Unavailable Unavailable CHIN, W PENG PA Unavailable Unavailable CHIN, W PENG PA Unavailable Unavailable CHIN, W PENG PA Unavailable Unavailable CHIN, W PENG PA Unavailable Unavailable CHIN, W PENG PA Unavailable Unavailable CHIN, W PENG PA Unavailable Unavailable CHIN, W PENG PA Unavailable Unavailable CHIN, W PENG PA Unavailable Unavailable CHIN, W PENG PA Unavailable Unavailable CHIN, W PENG PA Unavailable Unavailable CHIN, W PENG PA Unavailable Unavailable CHIN, W PENG PA Unavailable Unavailable CHIN, W PENG PA Unavailable Unavailable CHIN, W PENG PA Unavailable Unavailable CHIN, W PENG PA Unavailable Unavailable CHIN, W PENG PA Unavailable Unavailable GERMAIN, RODOLFO CUCO PA Unavailable Unavailable GERMAIN, RODOLFO CUCO PA Unavailable Unavailable GERMAIN, RODOLFO CUCO PA Unavailable Unavailable GERMAIN, RODOLFO CUCO PA Unavailable Unavailable GERMAIN, RODOLFO CUCO PA Unavailable Unavailable GERMAIN, RODOLFO CUCO PA Unavailable Unavailable GERMAIN, RODOLFO CUCO PA Unavailable Unavailable GERMAIN, RODOLFO CUCO PA Unavailable Unavailable GERMAIN, RODOLFO CUCO PA Unavailable Unavailable GERMAIN, RODOLFO CUCO PA Unavailable Unavailable GERMAIN, RODOLFO CUCO PA Unavailable Unavailable GERMAIN, RODOLFO CUCO PA Unavailable Unavailable GERMAIN, RODOLFO CUCO PA Unavailable Unavailable GERMAIN, RODOLFO CUCO PA Unavailable Unavailable GERMAIN, RODOLFO CUCO PA Unavailable Unavailable GERMAIN, RODOLFO CUCO PA Unavailable Unavailable GERMAIN, RODOLFO CUCO PA Unavailable Unavailable GERMAIN, RODOLFO CUCO PA Unavailable Unavailable GERMAIN, RODOLFO CUCO PA Unavailable Unavailable GERMAIN, RODOLFO CUCO PA Unavailable Unavailable GERMAIN, RODOLFO CUCO PA Unavailable Unavailable MERLE DE LA GARZA MD Unavailable Unavailable MERLE DE LA GARZA MD Unavailable Unavailable MERLE DE LA GARZA MD Unavailable Unavailable MERLE DE LA GARZA MD Unavailable Unavailable MERLE DE LA GARZA MD Unavailable Unavailable MERLE DE LA GARZA MD Unavailable Unavailable MERLE DE LA GARZA MD Unavailable Unavailable MERLE DE LA GARZA MD Unavailable Unavailable MERLE DE LA GARZA MD Unavailable Unavailable COLIN SR, NAVEED HAYES MD Unavailable Unavailable COLIN SR, NAVEED HAYES MD Unavailable Unavailable COLIN SR, NAVEED HAYES MD Unavailable Unavailable COLIN SR, NAVEED HAYES MD Unavailable Unavailable COLIN SR, NAVEED HAYES MD Unavailable Unavailable COLIN SR, NAVEED HAYES MD Unavailable Unavailable COLIN SR, NAVEED HAYES MD Unavailable Unavailable COLIN SR, NAVEED HAYES MD Unavailable Unavailable COLIN SR, NAVEED HAYES MD Unavailable Unavailable COLIN SR, NAVEED HAYES MD Unavailable Unavailable COLIN SR, NAVEDE HAYES MD Unavailable Unavailable COLIN SR, NAVEED HAYES MD Unavailable Unavailable COLIN SR, NAVEED HAYES MD Unavailable Unavailable COLIN SR, NAVEED HAYES MD Unavailable Unavailable COLIN SR, NAVEED HAYES MD Unavailable Unavailable COLIN SR, NAVEED HAYES MD Unavailable Unavailable COLIN SR, NAVEED HAYES MD Unavailable Unavailable COLIN SR, NAVEED HAYES MD Unavailable Unavailable COLIN SR, NAVEED HAYES MD Unavailable Unavailable COLIN SR, NAVEED HAYSE MD Unavailable Unavailable COLIN SR, NAVEED HAYES MD Unavailable Unavailable COLIN SR, NAVEED HAYES MD Unavailable Unavailable COLIN SR, NAVEED HAYES MD Unavailable Unavailable COLIN SR, NAVEED HAYES MD Unavailable Unavailable COLIN SR, NAVEED HAYES MD Unavailable Unavailable COLIN SR, NAVEED HAYES MD Unavailable Unavailable COLIN SR, NAVEED HAYES MD Unavailable Unavailable COLIN SR, NAVEED HAYES MD Unavailable Unavailable COLIN SR, NAVEED HAYES MD Unavailable Unavailable COLIN SR, NAVEED HAYES MD Unavailable Unavailable COLIN SR, NAVEED HAYES MD Unavailable Unavailable COLIN SR, NAVEED HAYES MD Unavailable Unavailable COLIN SR, NAVEED HAYES MD Unavailable Unavailable COLIN SR, NAVEED HAYES MD Unavailable Unavailable COLIN SR, NAVEED HAYES MD Unavailable Unavailable COLIN SR, NAVEED HAYES MD Unavailable Unavailable COLIN SR, NAVEED HAYES MD Unavailable Unavailable COLIN SR, NAVEED HAYES MD Unavailable Unavailable COLIN SR, NAVEED HAYES MD Unavailable Unavailable COLIN SR, NAVEED HAYES MD Unavailable Unavailable COLIN SR, NAVEED HAYES MD Unavailable Unavailable COLIN SR, NAVEED HAYES MD Unavailable Unavailable COLIN SR, NAVEED HAYES MD Unavailable Unavailable COLIN SR, NAVEED HAYES MD Unavailable Unavailable COLIN SR, NAVEED HAYES MD Unavailable Unavailable COLIN SR, NAVEED HAYES MD Unavailable Unavailable COLIN SR, NAVEED HAYES MD Unavailable Unavailable COLIN SR, NAVEED HAYES MD Unavailable Unavailable COLIN SR, NAVEED HAYES MD Unavailable Unavailable COLIN SR, NAVEED HAYES MD Unavailable Unavailable COLIN SR, NAVEED HAYES MD Unavailable Unavailable COLIN SR, NAVEED HAYES MD Unavailable Unavailable COLIN SR, NAVEED HAYES MD Unavailable Unavailable COLIN SR, NAVEED HAYES MD Unavailable Unavailable Calixto, M Nichelle RPA Unavailable Unavailable Calixto, M Nichelle RPA Unavailable Unavailable Calixto, M Nichelle RPA Unavailable Unavailable Calixto, M Nichelle RPA Unavailable Unavailable Calixto, M Nichelle RPA Unavailable Unavailable Calixto, M Nichelle RPA Unavailable Unavailable Calixto, M Nichelle RPA Unavailable Unavailable Calixto, M Nichelle RPA Unavailable Unavailable Calixto, M Nichelle RPA Unavailable Unavailable Calixto, M Nichelle RPA Unavailable Unavailable Calixto, M Nichelle RPA Unavailable Unavailable Calixto, M Nichelle RPA Unavailable Unavailable Calixto, M Nichelle RPA Unavailable Unavailable Calixto, M Nichelle RPA Unavailable Unavailable Calixto, M Nichelle RPA Unavailable Unavailable Calixto, M Nichelle RPA Unavailable Unavailable Calixto, M Nichelle RPA Unavailable Unavailable Calixto, M Nichelle RPA Unavailable Unavailable Calixto, M Nichelle RPA Unavailable Unavailable Calixto, M Nichelle RPA Unavailable Unavailable Calixto, M Nichelle RPA Unavailable Unavailable Calixto, M Nichelle RPA Unavailable Unavailable Calixto, M Nichelle RPA Unavailable Unavailable Calixto, M Nichelle RPA Unavailable Unavailable Calixto, M Nichelle RPA Unavailable Unavailable Calixto, M Nichelle RPA Unavailable Unavailable Calixto, M Nichelle RPA Unavailable Unavailable Calixto, M Nichelle RPA Unavailable Unavailable Calixto, M Nichelle RPA Unavailable Unavailable Calixto, M Nichelle RPA Unavailable Unavailable Calixto, M Nichelle RPA Unavailable Unavailable Calixto, M Nichelle RPA Unavailable Unavailable Calixto, M Nichelle RPA Unavailable Unavailable Calixto, M Nichelle RPA Unavailable Unavailable Calixto, M Nichelle RPA Unavailable Unavailable Calixto, M Nichelle RPA Unavailable Unavailable Calixto, M Nichelle RPA Unavailable Unavailable Calixto, M Nichelle RPA Unavailable Unavailable Calixto, M Nichelle RPA Unavailable Unavailable Calixto, M Nichelle RPA Unavailable Unavailable Calixto, M Nichelle RPA Unavailable Unavailable BEATRIZ VALE MD Unavailable Unavailable BEATRIZ VALE MD Unavailable Unavailable BEATRIZ VALE MD Unavailable Unavailable BEATRIZ VALE MD Unavailable Unavailable BEATRIZ VALE MD Unavailable Unavailable BEATRIZ VALE MD Unavailable Unavailable BEATRIZ VLAE MD Unavailable Unavailable BEATRIZ VALE MD Unavailable Unavailable BEATRIZ VALE MD Unavailable Unavailable BEATRIZ VALE MD Unavailable Unavailable AVITIA, KEENAN JOE ADOPTION COUNSELOR-C, MSN Unavailable Unavailab le AVITIA, KEENAN JOE ADOPTION COUNSELOR-C, MSN Unavailable Unavailab le AVITIA, KEENAN JOE ADOPTION COUNSELOR-C, MSN Unavailable Unavailab le AVITIA, KEENAN JOE ADOPTION COUNSELOR-C, MSN Unavailable Unavailab le AVITIA, KEENAN JOE ADOPTION COUNSELOR-C, MSN Unavailable Unavailab le AVITIA, KEENAN JOE ADOPTION COUNSELOR-C, MSN Unavailable Unavailab le AVITIA, KEENAN JOE ADOPTION COUNSELOR-C, MSN Unavailable Unavailab le AVITIA, KEENAN JOE ADOPTION COUNSELOR-C, MSN Unavailable Unavailab le AVITIA, KEENAN JOE ADOPTION COUNSELOR-C, MSN Unavailable Unavailab le AVITIA, KEENAN JOE ADOPTION COUNSELOR-C, MSN Unavailable Unavailab le AVITIA, KEENAN JOE ADOPTION COUNSELOR-C, MSN Unavailable Unavailab le AVITIA, KEENAN JOE ADOPTION COUNSELOR-C, MSN Unavailable Unavailab le AVITIA, KEENAN JOE ADOPTION COUNSELOR-C, MSN Unavailable Unavailab le AVITIA, KEENAN JOE ADOPTION COUNSELOR-C, MSN Unavailable Unavailab le AVITIA, KEENAN JOE ADOPTION COUNSELOR-C, MSN Unavailable Unavailab le AVITIA, KEENAN JOE ADOPTION COUNSELOR-C, MSN Unavailable Unavailab le AVITIA, KEENAN JOE ADOPTION COUNSELOR-C, MSN Unavailable Unavailab le AVITIA, KEENAN JOE ADOPTION COUNSELOR-C, MSN Unavailable Unavailab le AVIITA, KEENAN JOE ADOPTION COUNSELOR-C, MSN Unavailable Unavailab le AVITIA, KEENAN JOE ADOPTION COUNSELOR-C, MSN Unavailable Unavailab le AVITIA, KEENAN JOE ADOPTION COUNSELOR-C, MSN Unavailable Unavailab le AVITIA, KEENAN JOE ADOPTION COUNSELOR-C, MSN Unavailable Unavailab le AVITIA, KEENAN JOE ADOPTION COUNSELOR-C, MSN Unavailable Unavailab le AVITIA, KEENAN JOE ADOPTION COUNSELOR-C, MSN Unavailable Unavailab le AVITIA, KEEANN JOE ADOPTION COUNSELOR-C, MSN Unavailable Unavailab le AVITIA, KEENAN JOE ADOPTION COUNSELOR-C, MSN Unavailable Unavailab le AVITIA, KEENAN JOE ADOPTION COUNSELOR-C, MSN Unavailable Unavailab le AVITIA, KEENAN JOE ADOPTION COUNSELOR-C, MSN Unavailable Unavailab le AVITIA, KEENAN JOE ADOPTION COUNSELOR-C, MSN Unavailable Unavailab le AVITIA, KEENAN JOE ADOPTION COUNSELOR-C, MSN Unavailable Unavailab le AVITIA, KEENAN JOE ADOPTION COUNSELOR-C, MSN Unavailable Unavailab le AVITIA, KEENAN JOE ADOPTION COUNSELOR-C, MSN Unavailable Unavailab le AVITIA, KEENAN JOE ADOPTION COUNSELOR-C, MSN Unavailable Unavailab le AVITIA, KEENAN JOE ADOPTION COUNSELOR-C, MSN Unavailable Unavailab le AVITIA, KEENAN JOE ADOPTION COUNSELOR-C, MSN Unavailable Unavailab le AVITIA, KEENAN JOE ADOPTION COUNSELOR-C, MSN Unavailable Unavailab le AVITIA, KEENAN JOE ADOPTION COUNSELOR-C, MSN Unavailable Unavailab le AVITIA, KEENAN JOE ADOPTION COUNSELOR-C, MSN Unavailable Unavailab le AVITIAKEENAN HOLLEYA ADOPTION COUNSELOR-C, MSN Unavailable Unavailab le AVITIAKEENAN HOLLEYA ADOPTION COUNSELOR-C, MSN Unavailable Unavailab le AVITIA, KEENAN CALLEA ADOPTION COUNSELOR-C, MSN Unavailable Unavailab le AVITIA, KEENAN CALLEA ADOPTION COUNSELOR-C, MSN Unavailable Unavailab le AVITIA, KEENAN CALLEA ADOPTION COUNSELOR-C, MSN Unavailable Unavailab le SONJA, JORGE EWA PA-C Unavailable Unavailable SONJA, JORGE EWA PA-C Unavailable Unavailable SONJA, JORGE EWA PA-C Unavailable Unavailable SONJA, JORGE EWA PA-C Unavailable Unavailable SONJA, JORGE EWA PA-C Unavailable Unavailable SONJA, JORGE EWA PA-C Unavailable Unavailable SONJA, JORGE EWA PA-C Unavailable Unavailable SONJA, JORGE EWA PA-C Unavailable Unavailable SONJA, JORGE EWA PA-C Unavailable [facility]available [facility] Unavailable Unavailable DESJARLAIS, ASHLEIGH VERTICAL ROLL OPERATOR Unavailable Unavailable DESJARLAIS, ASHLEIGH VERTICAL ROLL OPERATOR Unavailable Unavailable DESJARLAIS, ASHLEIGH VERTICAL ROLL OPERATOR Unavailable Unavailable DESJARLAIS, ASHLEIGH VERTICAL ROLL OPERATOR Unavailable Unavailable DESJARLAIS, ASHLEIGH VERTICAL ROLL OPERATOR Unavailable Unavailable DESJARLAIS, ASHLEIGH VERTICAL ROLL OPERATOR Unavailable Unavailable DESJARLAIS, ASHLEIGH VERTICAL ROLL OPERATOR Unavailable Unavailable DESJARLAIS, ASHLEIGH VERTICAL ROLL OPERATOR Unavailable Unavailable DESJARLAIS, ASHLEIGH VERTICAL ROLL OPERATOR Unavailable Unavailable Rydberg, Loreta PA Unavailable Unavailable Rydberg, Loreta PA Unavailable Unavailable Rydberg, Loreta PA Unavailable Unavailable Rydberg, Loreta PA Unavailable Unavailable Rydberg, Loreta PA Unavailable Unavailable Rydberg, Loreta PA Unavailable Unavailable Rydberg, Loreta PA Unavailable Unavailable Rydberg, Loreta PA Unavailable Unavailable Rydberg, Loreta PA Unavailable Unavailable Rydberg, Loreta PA Unavailable Unavailable Rydberg, Loreta PA Unavailable Unavailable Rydberg, Loreta PA Unavailable Unavailable Rydberg, Loreta PA Unavailable Unavailable Rydberg, Loreta PA Unavailable Unavailable Rydberg, Loreta PA Unavailable Unavailable Rydberg, Loreta PA Unavailable Unavailable Rydberg, Loreta PA Unavailable Unavailable Rydberg, Loreta PA Unavailable Unavailable Rydberg, Loreta PA Unavailable Unavailable Rydberg, Loreta PA Unavailable Unavailable Rydberg, Loreta PA Unavailable Unavailable Rydberg, Loreta PA Unavailable Unavailable Re-disclosure Warning The records that you are about to access may contain information from federally-assisted alcohol or drug abuse programs. If such information is present, then the following federally mandated warning applies: This information has been disclosed to you from records protected by federal confidentiality rules (42 CFR part 2). The federal rules prohibit you from making any further disclosure of this information unless further disclosure is expressly permitted by the written consent of the person to whom it pertains or as otherwise permitted by 42 CFR part 2. A general authorization for the release of medical or other information is NOT sufficient for this purpose. The Federal rules restrict any use of the information to criminally investigate or prosecute any alcohol or drug abuse patient.The records that you are about to access may contain highly sensitive health information, the redisclosure of which is protected by Article 27-F of the [facility] Public Health law. If you continue you may have access to information: Regarding HIV / AIDS; Provided by facilities licensed or operated by the [facility] Office of Mental Health; or Provided by the [facility] Office for People With Developmental Disabilities. If such information is present, then the following [facility] mandated warning applies: This information has been disclosed to you from confidential records which are protected by state law. State law prohibits you from making any further disclosure of this information without the specific written consent of the person to whom it pertains, or as otherwise permitted by law. Any unauthorized further disclosure in violation of state law may result in a fine or nursing home sentence or both. A general authorization for the release of medical or other information is NOT sufficient authorization for further disc losure. Allergies and Adverse Reactions Type Description Substance Reaction Status Data Source(s ) Drug allergy MDX - Nka - No Known Allergies MDX - Nka - No Known [facility] Providers Location Date Indications Data Source(s ) Outpatient Attender: ASHLEIGH MATSON NP 06/12/2020 11: 33:00 AM [facility] Outpatient Attender: ASHLEIGH MATSON NP 05/12/2020 01: 20:00 PM [facility] Outpatient [facility] 04/30/2020 12:00:00 AM EST eCW1 ([facility]) Outpatient Attender: ASHLEIGH MATSON NP 04/21/2020 09: 22:00 AM [facility] Outpatient Attender: ASHLEIGH MATSON VERTICAL ROLL OPERATOR 04/09/2020 11: 40:00 AM [facility] Outpatient Attender: ASHLEIGH MATSON NP 03/24/2020 10: 00:00 AM [facility] Outpatient Attender: ABIGAIL COLIN SR 03/22/2020 10:36:00 AM [facility] Emergency Attender: ANTONIO KING PAReferrer: BIJU COLIN SR EMERGENCY ROOM-ER 03/17/2020 07:34:00 AM EDT - 03/17/2020 08:51:00 AM [facility] Patient discharged. Outpatient Attender: ASHLEIGH MATSON VERTICAL ROLL OPERATOR 03/10/2020 11: 40:00 AM [facility] Outpatient Attender: ABIGAIL COLIN SR 03/02 02:58:00 PM EDT - 03/18/2020 10:36:00 AM [facility] Patient discharged. Outpatient Attender: ABIGAIL COLIN SRReferrer: ABIGAIL Douglas SR 03/02/2020 02:06:00 PM EDT - 03/02/2020 02:06:00 PM EDT [facility] Outpatient Attender: ABIGAIL COLIN SRReferrer: EBONY MAE MSN [facility]GENCY [facility] 02/27/2020 12:43:00 PM EDT - 02/27/2020 12:43:00 PM [facility] Outpatient [facility] 02/27/2020 12:00:00 AM EDT eCW1 ([facility]) Emergency Attender: CUCO GROVES PAReferrer: Calin ROE, MSN EMERGENCY ROOM-ER 02/23/2020 05:42:00 AM EDT - 02/23/2020 06:05:00 AM [facility] Patient discharged. Outpatient Attender: ASHLEIGH MATSON VERTICAL ROLL OPERATOR 02/20/2020 11: 40:00 AM [facility] Outpatient Attender: ASHLEIGH MATSON NP 02/06/2020 11: 40:00 AM [facility] Emergency Attender: RICKY CHOW FELISA ttender: VARUN GARCIA PAReferrer: JOE ROE, MSN EMERGENCY ROOM-ER 02/05/2020 08:30:00 PM EDT - 02/05/2020 08:58:00 PM [facility] Patient discharged. Outpatient Attender: VARUN GARCIA PAConsultant: [id number] 02/05/2020 07:55:00 PM [facility] Outpatient Attender: ASHLEIGH MATSON VERTICAL ROLL OPERATOR 01/22/2020 11: 40:00 AM [facility] Outpatient Attender: ASHLEIGH CHARLESRLAIS VERTICAL ROLL OPERATOR 01/08/2020 11: 40:00 AM [facility] Outpatient Attender: ASHLEIGH CHARLESRLAIS VERTICAL ROLL OPERATOR 12/25/2019 01: 00:00 PM [facility] Outpatient [facility] 12/18/2019 12:00:00 AM [facility] ([facility]) Outpatient Attender: EWA CASILLAS PA-C 12/16/2019 11:22:00 AM [facility] Outpatient Attender: ASHLEIGH CHARLESRLAIS VERTICAL ROLL OPERATOR 12/10/2019 11: 00:00 AM [facility] Outpatient Attender: ASHLEIGH ANNMARIEJARLAIS VERTICAL ROLL OPERATOR 11/19/2019 11: 20:00 AM [facility] Outpatient Attender: Nichelle De [facility] 10/29/2019 07:35:42 PM [facility] Outpatient Attender: Nichelle De [facility] 10/19/2019 12:10:22 AM [facility] Outpatient Attender: ASHLEIGH CHARLESRLAIS VERTICAL ROLL OPERATOR 10/18/2019 01: 00:00 PM [facility] Outpatient Attender: ASHLEIGH DESJARLAIS VERTICAL ROLL OPERATOR 09/20/2019 11: 00:00 AM [facility] Outpatient Attender: ASHLEIGH DESJARLAIS VERTICAL ROLL OPERATOR 09/06/2019 02: 18:00 PM [facility] Outpatient Attender: ASHLEIGH ANNMARIEJARLAIS VERTICAL ROLL OPERATOR 08/23/2019 11: 00:00 AM [facility] Outpatient Attender: ASHLEIGH ANNMARIEJARLAIS VERTICAL ROLL OPERATOR 07/30/2019 10: 40:00 AM [facility] Outpatient Attender: ASHLEIGH ANNMARIEJARLAIS VERTICAL ROLL OPERATOR 06/28/2019 12: 59:00 PM [facility] Outpatient Attender: ASHLEIGH MATSON NP 06/07/2019 10: 34:00 AM [facility] Outpatient Attender: ASHLEIGH MATSON NP 05/03/2019 02: 00:00 PM [facility] Outpatient Attender: ASHLEIGH MATSON VERTICAL ROLL OPERATOR 04/05/2019 01: 59:00 PM [facility] Emergency Attender: ANTONIO VASQUEZ 06/19 12:17:00 PM [facility] - 06/19/2014 12:30:00 PM [facility] Emergency Attender: MERLE DE LA GARZA MD 015 04:15:00 PM [facility] 06/02/2014 07:15:00 PM [facility] Inpatient Attender: PENG Appiahitter: BETARIZ KINSEY MD 07/11/2013 12:40:00 PM [facility] 07/12/2013 01:22:00 AM [facility] Emergency Attender: ISRA HAYDEN MD 06:14:00 PM [facility] 04/03/2013 08:39:00 PM [facility] Outpatient Attender: Loreta Miller PAReferrer: Loreta VASQUEZ 09/18/2012 02:32:00 PM [facility] Medications Medication Brand Name Start Date Product Form Dose Route Admi nistrative Instructions Pharmacy Instructions Status Indications Reaction Description Data Source(s) atorvastatin 20 MG Oral Tablet ATORVASTATIN CALCIUM 02/28/2020 1 2:00:00 AM EDT tablet 90 TAKE ONE TABLET BY MOUTH EVERY D AY TAKE ONE TABLET BY MOUTH EVERY DAY SOLD: 02/29/2020 [facility] atorvastatin 20 MG Oral Tablet ATORVASTATIN CALCIUM 02/28/2020 1 2:00:00 AM EDT tablet 90 TAKE ONE TABLET BY MOUTH EVERY D AY TAKE ONE TABLET BY MOUTH EVERY DAY SOLD: 06/01/2020 [facility] physical therapy eval and tx - UNK 02/27/2020 12:00:00 AM EDT active physical therapy eval and tx - eCW1 ([facility]) physical therapy eval and tx - UNK 02/27/2020 12:00:00 AM EDT active physical therapy eval and tx - [facility] [facility] eval and tx - UNK 02/27/2020 12:00:00 AM EDT active physical therapy eval and tx - eCW1 ([facility]) physical therapy eval and tx - UNK 02/27/2020 12:00:00 AM EDT active physical therapy eval and tx - eCW1 ([facility]) atorvastatin 20 MG Oral Tablet [Lipitor] Lipitor 20 MG Lipit or 20 MG 02/27/2020 12:00:00 AM EDT 1.0 {tablet} active Li pitor 20 MG eCW1 ([facility]) atorvastatin 20 MG Oral Tablet [Lipitor] Lipitor 20 MG Lipit or 20 MG 02/27/2020 12:00:00 AM EDT 1.0 {tablet} active Li pitor 20 MG eCW1 ([facility]) Tamsulosin hydrochloride 0.4 MG Oral Capsule [Flomax] Flomax 0.4 MG Flomax 0.4 MG 02/27/2020 12:00:00 AM EDT 1.0 {capsule} active Flomax 0.4 MG eCW1 ([facility]) physical therapy eval and tx - UNK 02/27/2020 12:00:00 AM EDT active physical therapy eval and tx - eCW1 ([facility]) Tamsulosin hydrochloride 0.4 MG Oral Capsule [Flomax] Flomax 0.4 MG Flomax 0.4 MG 02/27/2020 12:00:00 AM EDT 1.0 {capsule} active Flomax 0.4 MG eCW1 ([facility]) 100 mg 02/26/2020 12:00:00 AM EDT tablet 30 TAKE ONE TABLET BY MOUTH EVERY DAY TAKE ONE TABLET BY MOUTH EVERY DAY SOLD: 04/30/2020 [facility] 100 mg 02/26/2020 12:00:00 AM EDT tablet 30 TAKE ONE TABLET BY MOUTH EVERY DAY TAKE ONE TABLET BY MOUTH EVERY DAY SOLD: 02/27/2020 [facility] 100 mg 02/26/2020 12:00:00 AM EDT tablet 30 TAKE ONE TABLET BY MOUTH EVERY DAY TAKE ONE TABLET BY MOUTH EVERY DAY SOLD: 06/01/2020 [facility] 100 mg 02/26/2020 12:00:00 AM EDT tablet 30 TAKE ONE TABLET BY MOUTH EVERY DAY TAKE ONE TABLET BY MOUTH EVERY DAY SOLD: 03/30/2020 [facility] quetiapine 100 MG Oral Tablet QUETIAPINE FUMARATE 02/24/2020 12: 00:00 AM EDT tablet 60 TAKE TWO TABLETS BY MOUTH AT BED TIME TAKE TWO TABLETS BY MOUTH AT BEDTIME SOLD: 02/26/2020 [facility] quetiapine 100 MG Oral Tablet QUETIAPINE FUMARATE 02/24/2020 12: 00:00 AM EDT tablet 60 TAKE TWO TABLETS BY MOUTH AT BED TIME TAKE TWO TABLETS BY MOUTH AT BEDTIME SOLD: 04/30/2020 [facility] quetiapine 100 MG Oral Tablet QUETIAPINE FUMARATE 02/24/2020 12: 00:00 AM EDT tablet 60 TAKE TWO TABLETS BY MOUTH AT BED TIME TAKE TWO TABLETS BY MOUTH AT BEDTIME SOLD: 06/01/2020 [facility] quetiapine 100 MG Oral Tablet QUETIAPINE FUMARATE 02/24/2020 12: 00:00 AM EDT tablet 60 TAKE TWO TABLETS BY MOUTH AT BED TIME TAKE TWO TABLETS BY MOUTH AT BEDTIME SOLD: 03/30/2020 [facility] 0.4 mg 02/23/2020 12:00:00 AM EDT capsule 14 TAKE ONE CAPSULE BY MOUTH EVERY DAY DIRECTED TAKE ONE CAPSULE BY MOUTH EVERY DAY DIRECTED SOLD: 02/23/2020 [facility] 500 mg 02/23/2020 12:00:00 AM EDT tablet 10 TAKE ONE TABLET BY MOUTH TWICE A DAY DIRECTED TAKE ONE TABLET BY MOUTH TWICE A DAY DIRECTED SOLD: 02/23/2020 [facility] 25 mg 02/21/2020 12:00:00 AM EDT tablet 180 TAKE TWO TABLETS BY MOUTH EVERY 8 HOURS TAKE TWO TABLETS BY MOUTH EVERY 8 HOURS SOLD: 06/01/2020 [facility] 10 mg 02/21/2020 12:00:00 AM EDT tablet, sublingual 60 PLACE 1 TABLET UNDER THE TONGUE TWICE A DAY PLACE 1 TABLET UNDER THE TONGUE TWICE A DAY SOLD: 02/23/2020 [facility] 25 mg 02/21/2020 12:00:00 AM EDT tablet 180 TAKE TWO TABLETS BY MOUTH EVERY 8 HOURS TAKE TWO TABLETS BY MOUTH EVERY 8 HOURS SOLD: 03/22/2020 [facility] 25 mg 02/21/2020 12:00:00 AM EDT tablet 180 TAKE TWO TABLETS BY MOUTH EVERY 8 HOURS TAKE TWO TABLETS BY MOUTH EVERY 8 HOURS SOLD: 04/22/2020 [facility] 20 mg 02/21/2020 12:00:00 AM EDT tablet 90 TAKE ONE TABLET BY MOUTH THREE TIMES A DAY TAKE ONE TABLET BY MOUTH THREE TIMES A DAY SOLD: 04/22/2020 [facility] 300 mg 02/21/2020 12:00:00 AM EDT tablet 30 TAKE ONE TABLET BY MOUTH EVERY EVENING TAKE ONE TABLET BY MOUTH EVERY EVENING SOLD: 02/23/2020 [facility] 10 mg 02/21/2020 12:00:00 AM EDT tablet, sublingual 60 PLACE 1 TABLET UNDER THE TONGUE TWICE A DAY PLACE 1 TABLET UNDER THE TONGUE TWICE A DAY SOLD: 04/22/2020 [facility] 10 mg 02/21/2020 12:00:00 AM EDT tablet, sublingual [address] PL[address] 1 TABLET UNDER THE TONGUE TWICE A DAY PLACE 1 TABLET UNDER THE TONGUE TWICE A DAY SOLD: 03/22/2020 [facility] 25 mg 02/21/2020 12:00:00 AM EDT tablet 180 TAKE TWO TABLETS BY MOUTH EVERY 8 HOURS TAKE TWO TABLETS BY MOUTH EVERY 8 HOURS SOLD: 02/23/2020 [facility] 10 mg 02/21/2020 12:00:00 AM EDT tablet, sublingual 60 PLACE 1 TABLET UNDER THE TONGUE TWICE A DAY PLACE 1 TABLET UNDER THE TONGUE TWICE A DAY SOLD: 06/01/2020 [facility] 300 mg 02/21/2020 12:00:00 AM EDT tablet 30 TAKE ONE TABLET BY MOUTH EVERY EVENING TAKE ONE TABLET BY MOUTH EVERY EVENING SOLD: 04/22/2020 [facility] 20 mg 02/21/2020 12:00:00 AM EDT tablet 90 TAKE ONE TABLET BY MOUTH THREE TIMES A DAY TAKE ONE TABLET BY MOUTH THREE TIMES A DAY SOLD: 03/22/2020 [facility] 300 mg 02/21/2020 12:00:00 AM EDT tablet 30 TAKE ONE TABLET BY MOUTH EVERY EVENING TAKE ONE TABLET BY MOUTH EVERY EVENING SOLD: 06/01/2020 [facility] 20 mg 02/21/2020 12:00:00 AM EDT tablet 90 TAKE ONE TABLET BY MOUTH THREE TIMES A DAY TAKE ONE TABLET BY MOUTH THREE TIMES A DAY SOLD: 06/01/2020 [facility] 20 mg 02/21/2020 12:00:00 AM EDT tablet 90 TAKE ONE TABLET BY MOUTH THREE TIMES A DAY TAKE ONE TABLET BY MOUTH THREE TIMES A DAY SOLD: 02/23/2020 [facility] 300 mg 02/21/2020 12:00:00 AM EDT tablet 30 TAKE ONE TABLET BY MOUTH EVERY EVENING TAKE ONE TABLET BY MOUTH EVERY EVENING SOLD: 03/22/2020 [facility] 100 mg 02/06/2020 12:00:00 AM EDT tablet 6 TAKE ONE TABLET BY MOUTH THREE TIMES A DAY TAKE ONE TABLET BY MOUTH THREE TIMES A DAY SOLD: 02/06/2020 [facility] 300 mg 02/06/2020 12:00:00 AM EDT capsule 20 TAKE ONE CAPSULE BY MOUTH TWICE A DAY TAKE ONE CAPSULE BY MOUTH TWICE A DAY SOLD: 02/06/2020 [facility] pantoprazole 40 MG Delayed Release Oral Tablet PANTOPRAZOLE SODIUM 01/31/2020 12:00:00 AM EDT tablet,delayed release (DR/EC) 30 T DOMINIC ONE TABLET BY MOUTH EVERY DAY TAKE ONE TABLET BY MOUTH EVERY DAY SOLD: 06/01/2020 [facility] 40 mg 01/31/2020 12:00:00 AM EDT tablet,delayed release (DR/EC) 30 TAKE ONE TABLET BY MOUTH EVERY DAY TAKE ONE TABLET BY MOUTH EVERY DAY SOLD: 02/01/2020 [facility] pantoprazole 40 MG Delayed Release Oral Tablet PANTOPRAZOLE SODIUM 01/31/2020 12:00:00 AM EDT tablet,delayed release (DR/EC) 30 T DOMINIC ONE TABLET BY MOUTH EVERY DAY TAKE ONE TABLET BY MOUTH EVERY DAY SOLD: 04/30/2020 [facility] pantoprazole 40 MG Delayed Release Oral Tablet PANTOPRAZOLE SODIUM 01/31/2020 12:00:00 AM EDT tablet,delayed release (DR/EC) 30 T DOMINIC ONE TABLET BY MOUTH EVERY DAY TAKE ONE TABLET BY MOUTH EVERY DAY SOLD: 03/30/2020 [facility] pantoprazole 40 MG Delayed Release Oral Tablet PANTOPRAZOLE SODIUM 01/31/2020 12:00:00 AM EDT tablet,delayed release (DR/EC) 30 T DOMINIC ONE TABLET BY MOUTH EVERY DAY TAKE ONE TABLET BY MOUTH EVERY DAY SOLD: 02/27/2020 [facility] 20 mg 12/11/2019 12:00:00 AM EDT tablet 60 TAKE ONE TABLET BY MOUTH TWICE A DAY TAKE ONE TABLET BY MOUTH TWICE A DAY SOLD: 12/12/2019 [facility] Propranolol Hydrochloride 20 MG Oral Tablet Propranolo l HCl 20 MG Propranolol HCl 20 MG 12/10/2019 12:00:00 AM EDT 1.0 {tablet} ac tive Propranolol HCl 20 MG eCW1 ([facility]) Propranolol Hydrochloride 20 MG Oral Tablet Propranolo l HCl 20 MG Propranolol HCl 20 MG 12/10/2019 12:00:00 AM EDT 1.0 {tablet} ac tive Propranolol HCl 20 MG eCW1 ([facility]) Propranolol Hydrochloride 20 MG Oral Tablet Propranolo l HCl 20 MG Propranolol HCl 20 MG 12/10/2019 12:00:00 AM EDT 1.0 {tablet} ac tive Propranolol HCl 20 MG eCW1 ([facility]) 5 mg 12/03/2019 12:00:00 AM EDT tablet 60 TAKE ONE TABLET BY MOUTH TWO TIMES A DAY NEEDED MAXIMUM DAILY DOSE = 2 TABLETS TAKE ONE TABLET BY MOUTH TWO TIMES A DAY NEEDED MAXIMUM DAILY DOSE = 2 TABLETS SOLD: 12/05/2019 [facility] 100 mg 11/08/2019 12:00:00 AM EDT tablet 30 TAKE ONE TABLET BY MOUTH EVERY DAY TAKE ONE TABLET BY MOUTH EVERY DAY SOLD: 01/18/2020 [facility] 100 mg 11/08/2019 12:00:00 AM EDT tablet 30 TAKE ONE TABLET BY MOUTH EVERY DAY TAKE ONE TABLET BY MOUTH EVERY DAY SOLD: 11/19/2019 [facility] 100 mg 11/08/2019 12:00:00 AM EDT tablet 30 TAKE ONE TABLET BY MOUTH EVERY DAY TAKE ONE TABLET BY MOUTH EVERY DAY SOLD: 12/18/2019 [facility] quetiapine 100 MG Oral Tablet QUETIAPINE FUMARATE 10/29/2019 12: 00:00 AM EDT tablet 60 TAKE TWO TABLETS BY MOUTH AT BED TIME TAKE TWO TABLETS BY MOUTH AT BEDTIME SOLD: 10/31/2019 [facility] quetiapine 100 MG Oral Tablet QUETIAPINE FUMARATE 10/29/2019 12: 00:00 AM EDT tablet 60 TAKE TWO TABLETS BY MOUTH AT BED TIME TAKE TWO TABLETS BY MOUTH AT BEDTIME SOLD: 12/02/2019 [facility] quetiapine 100 MG Oral Tablet QUETIAPINE FUMARATE 10/29/2019 12: 00:00 AM EDT tablet 60 TAKE TWO TABLETS BY MOUTH AT BED TIME TAKE TWO TABLETS BY MOUTH AT BEDTIME SOLD: 01/30/2020 [facility] quetiapine 100 MG Oral Tablet QUETIAPINE FUMARATE 10/29/2019 12: 00:00 AM EDT tablet 60 TAKE TWO TABLETS BY MOUTH AT BED TIME TAKE TWO TABLETS BY MOUTH AT BEDTIME SOLD: 01/01/2020 [facility] 10 mg 10/19/2019 12:00:00 AM EDT tablet, sublingual 60 PLACE 1 TABLET UNDER THE TONGUE TWICE A DAY PLACE 1 TABLET UNDER THE TONGUE TWICE A DAY SOLD: 01/18/2020 [facility] 10 mg 10/19/2019 12:00:00 AM EDT tablet, sublingual [address] PL[address] 1 TABLET UNDER THE TONGUE TWICE A DAY PLACE 1 TABLET UNDER THE TONGUE TWICE A DAY SOLD: 12/18/2019 [facility] 10 mg 10/19/2019 12:00:00 AM EDT tablet, sublingual [address] 1 TABLET UNDER THE TONGUE TWICE A DAY PLACE 1 TABLET UNDER THE TONGUE TWICE A DAY SOLD: 11/19/2019 [facility] 10 mg 10/19/2019 12:00:00 AM EDT tablet, sublingual [address] 1 TABLET UNDER THE TONGUE TWICE A DAY PLACE 1 TABLET UNDER THE TONGUE TWICE A DAY SOLD: 10/21/2019 [facility] 300 mg 10/17/2019 12:00:00 AM EDT tablet 30 TAKE ONE TABLET BY MOUTH EVERY EVENING TAKE ONE TABLET BY MOUTH EVERY EVENING SOLD: 11/19/2019 [facility] 300 mg 10/17/2019 12:00:00 AM EDT tablet 30 TAKE ONE TABLET BY MOUTH EVERY EVENING TAKE ONE TABLET BY MOUTH EVERY EVENING SOLD: 10/21/2019 [facility] 300 mg 10/17/2019 12:00:00 AM EDT tablet 30 TAKE ONE TABLET BY MOUTH EVERY EVENING TAKE ONE TABLET BY MOUTH EVERY EVENING SOLD: 01/18/2020 [facility] 300 mg 10/17/2019 12:00:00 AM EDT tablet 30 TAKE ONE TABLET BY MOUTH EVERY EVENING TAKE ONE TABLET BY MOUTH EVERY EVENING SOLD: 12/18/2019 [facility] 5 mg 09/21/2019 12:00:00 AM EDT tablet 30 TAKE 1 TABLET BY MOUTH TWICE NEEDED MAXIMUM DAILY DOSE = 2 TABLETS TAKE 1 TABLET BY MOUTH TWICE NEEDED MAXIMUM DAILY DOSE = 2 TABLETS SOLD: 09/23/2019 [facility] 0.25 mg 09/20/2019 12:00:00 AM EDT tablet 30 TAKE 1 TABLET EVERY DAY AT BEDTIME MAXIMUM DAILY DOSE = 1 TABLET TAKE 1 TABLET EVERY DAY AT BEDTIME MAXIM UM DAILY DOSE = 1 TABLET SOLD: 09/21/2019 [facility] 40 mg 09/12/2019 12:00:00 AM EDT tablet,delayed release (DR/EC) 30 TAKE ONE TABLET BY MOUTH EVERY DAY TAKE ONE TABLET BY MOUTH EVERY DAY SOLD: 10/11/2019 [facility] 40 mg 09/12/2019 12:00:00 AM EDT tablet,delayed release (DR/EC) 30 TAKE ONE TABLET BY MOUTH EVERY DAY TAKE ONE TABLET BY MOUTH EVERY DAY SOLD: 12/08/2019 [facility] 40 mg 09/12/2019 12:00:00 AM EDT tablet,delayed release (DR/EC) 30 TAKE ONE TABLET BY MOUTH EVERY DAY TAKE ONE TABLET BY MOUTH EVERY DAY SOLD: 09/13/2019 [facility] 40 mg 09/12/2019 12:00:00 AM EDT tablet,delayed release (DR/EC) 30 TAKE ONE TABLET BY MOUTH EVERY DAY TAKE ONE TABLET BY MOUTH EVERY DAY SOLD: 11/08/2019 [facility] 40 mg 09/12/2019 12:00:00 AM EDT tablet,delayed release (DR/EC) 30 TAKE ONE TABLET BY MOUTH EVERY DAY TAKE ONE TABLET BY MOUTH EVERY DAY SOLD: 01/06/2020 [facility] 100 mg 09/07/2019 12:00:00 AM EDT tablet 60 TAKE TWO TABLETS BY MOUTH ONCE DAILY TAKE TWO TABLETS BY MOUTH ONCE DAILY SOLD: 02/10/2020 [facility] 100 mg 09/07/2019 12:00:00 AM EDT tablet 60 TAKE TWO TABLETS BY MOUTH ONCE DAILY TAKE TWO TABLETS BY MOUTH ONCE DAILY SOLD: 10/11/2019 [facility] 100 mg 09/07/2019 12:00:00 AM EDT tablet 60 TAKE TWO TABLETS BY MOUTH ONCE DAILY TAKE TWO TABLETS BY MOUTH ONCE DAILY SOLD: 09/12/2019 [facility] 100 mg 09/07/2019 12:00:00 AM EDT tablet 60 TAKE TWO TABLETS BY MOUTH ONCE DAILY TAKE TWO TABLETS BY MOUTH ONCE DAILY SOLD: 11/08/2019 [facility] 0.25 mg 08/23/2019 12:00:00 AM EDT tablet 30 TAKE 1 TABLET BY MOUTH DAILY AT BEDTIME MAXIMUM DAILY DOSE = 1 TABLET TAKE 1 TABLET BY MOUTH DAILY AT BEDTIME MAXIMUM DAILY DOSE = 1 TABLET SOLD: 08/24/2019 [facility] 90 mcg/actuation 08/20/2019 12:00:00 AM EDT HFA aerosol inha ler 18 INHALE TWO PUFFS BY MOUTH EVERY 4 HOURS NEEDED INHALE TWO PUFFS BY MOUTH EVERY 4 HOURS NEEDED SOLD: 08/22/2019 [facility] 90 mcg/actuation 08/20/2019 12:00:00 AM EDT HFA aerosol inha ler 18 INHALE TWO PUFFS BY MOUTH EVERY 4 HOURS NEEDED INHALE TWO PUFFS BY MOUTH EVERY 4 HOURS NEEDED SOLD: 09/12/2019 [facility] 90 mcg/actuation 08/20/2019 12:00:00 AM EDT HFA aerosol inha ler 18 INHALE TWO PUFFS BY MOUTH EVERY 4 HOURS NEEDED INHALE TWO PUFFS BY MOUTH EVERY 4 HOURS NEEDED SOLD: 10/01/2019 [facility] 0.25 mg 07/31/2019 12:00:00 AM EDT tablet 15 TAKE ONE TABLET BY MOUTH DAILY AT BEDTIME FOR 15 DAYS MAXIMUM DAILY DOSE = 1 TABLET TAKE ONE TABLET BY MOUTH DAILY AT BEDTIME FOR 15 DAYS MAXIMUM DAILY DOSE = 1 TABLET SOLD: 08/02/2019 [facility] Triazolam 0.25 MG Oral Tablet [Halcion] Halcion 0.25 MG Halc ion 0.25 MG 07/30/2019 12:00:00 AM EDT 1.0 {tablet} active Halcion 0.25 MG eCW1 ([facility]) Triazolam 0.25 MG Oral Tablet [Halcion] Halcion 0.25 MG Halc ion 0.25 MG 07/30/2019 12:00:00 AM EDT 1.0 {tablet} active Halcion 0.25 MG eCW1 ([facility]) Triazolam 0.25 MG Oral Tablet [Halcion] Halcion 0.25 MG Halc ion 0.25 MG 07/30/2019 12:00:00 AM EDT 1.0 {tablet} active Halcion 0.25 MG eCW1 ([facility]) 40 mg 07/10/2019 12:00:00 AM EST tablet,delayed release (DR/EC) 30 TAKE 1 TABLET BY MOUTH ONCE A DAY TAKE 1 TABLET BY MOUTH ONCE A DAY SOLD: 07/11/2019 [facility] 40 mg 07/10/2019 12:00:00 AM EST tablet,delayed release (DR/EC) 30 TAKE 1 TABLET BY MOUTH ONCE A DAY TAKE 1 TABLET BY MOUTH ONCE A DAY SOLD: 08/10/2019 [facility] 10 mg 06/29/2019 12:00:00 AM EST tablet, sublingual 60 PLACE ONE TABLET UNDER THE TONGUE AND ALLOW TO DISSOLVE TWICE A DAY PLACE ONE TABLET UNDER THE TONGUE AND ALLOW TO DISSOLVE TWICE A DAY SOLD: 09/02/2019 [facility] 25 mg 06/29/2019 12:00:00 AM EST tablet 180 TAKE TWO TABLETS BY MOUTH EVERY 8 HOURS TAKE TWO TABLETS BY MOUTH EVERY 8 HOURS SOLD: 06/30/2019 [facility] quetiapine 100 MG Oral Tablet QUETIAPINE FUMARATE 06/29/2019 12: 00:00 AM EST tablet 60 TAKE TWO TABLETS BY MOUTH DAILY AT BEDTIME TAKE TWO TABLETS BY MOUTH DAILY AT BEDTIME SOLD: 10/01/2019 [facility] quetiapine 100 MG Oral Tablet QUETIAPINE FUMARATE 06/29/2019 12: 00:00 AM EST tablet 60 TAKE TWO TABLETS BY MOUTH DAILY AT BEDTIME TAKE TWO TABLETS BY MOUTH DAILY AT BEDTIME SOLD: 07/29/2019 [facility] quetiapine 100 MG Oral Tablet QUETIAPINE FUMARATE 06/29/2019 12: 00:00 AM EST tablet 60 TAKE TWO TABLETS BY MOUTH DAILY AT BEDTIME TAKE TWO TABLETS BY MOUTH DAILY AT BEDTIME SOLD: 09/02/2019 [facility] 100 mg 06/29/2019 12:00:00 AM EST tablet 60 TAKE TWO TABLETS BY MOUTH ONCE DAILY TAKE TWO TABLETS BY MOUTH ONCE DAILY SOLD: 06/30/2019 [facility] 10 mg 06/29/2019 12:00:00 AM EST tablet, sublingual 60 PLACE ONE TABLET UNDER THE TONGUE AND ALLOW TO DISSOLVE TWICE A DAY PLACE ONE TABLET UNDER THE TONGUE AND ALLOW TO DISSOLVE TWICE A DAY SOLD: 07/29/2019 [facility] 10 mg 06/29/2019 12:00:00 AM EST tablet, sublingual [address] PLACE ONE TABLET UNDER THE TONGUE AND ALLOW TO DISSOLVE TWICE A DAY PLACE ONE TABLET UNDER THE TONGUE AND ALLOW TO DISSOLVE TWICE A DAY SOLD: 06/30/2019 [facility] 25 mg 06/29/2019 12:00:00 AM EST tablet 180 TAKE TWO TABLETS BY MOUTH EVERY 8 HOURS TAKE TWO TABLETS BY MOUTH EVERY 8 HOURS SOLD: 07/29/2019 [facility] 100 mg 06/29/2019 12:00:00 AM EST tablet 60 TAKE TWO TABLETS BY MOUTH ONCE DAILY TAKE TWO TABLETS BY MOUTH ONCE DAILY SOLD: 07/29/2019 [facility] quetiapine 100 MG Oral Tablet QUETIAPINE FUMARATE 06/29/2019 12: 00:00 AM EST tablet 60 TAKE TWO TABLETS BY MOUTH DAILY AT BEDTIME TAKE TWO TABLETS BY MOUTH DAILY AT BEDTIME SOLD: 06/30/2019 [facility] Hydroxyzine Hydrochloride 25 MG Oral Tablet HydrOXYzin e HCl 25 MG HydrOXYzine HCl 25 MG 06/28/2019 12:00:00 AM EST active HydrOXYzine HCl 25 MG eCW1 ([facility]) Hydroxyzine Hydrochloride 25 MG Oral Tablet HydrOXYzin e HCl 25 MG HydrOXYzine HCl 25 MG 06/28/2019 12:00:00 AM EST active HydrOXYzine HCl 25 MG eCW1 ([facility]) Hydroxyzine Hydrochloride 25 MG Oral Tablet HydrOXYzin e HCl 25 MG HydrOXYzine HCl 25 MG 06/28/2019 12:00:00 AM EST active HydrOXYzine HCl 25 MG eCW1 ([facility]) 300 mg 06/15/2019 12:00:00 AM EST tablet 30 TAKE ONE TABLET BY MOUTH EVERY DAY IN THE EVENING TAKE ONE TABLET BY MOUTH EVERY DAY IN THE EVENING SOLD : 08/22/2019 [facility] 300 mg 06/15/2019 12:00:00 AM EST tablet 30 TAKE ONE TABLET BY MOUTH EVERY DAY IN THE EVENING TAKE ONE TABLET BY MOUTH EVERY DAY IN THE EVENING SOLD : 06/21/2019 [facility] 300 mg 06/15/2019 12:00:00 AM EST tablet 30 TAKE ONE TABLET BY MOUTH EVERY DAY IN THE EVENING TAKE ONE TABLET BY MOUTH EVERY DAY IN THE EVENING SOLD : 07/20/2019 [facility] 300 mg 06/15/2019 12:00:00 AM EST tablet 30 TAKE ONE TABLET BY MOUTH EVERY DAY IN THE EVENING TAKE ONE TABLET BY MOUTH EVERY DAY IN THE EVENING SOLD : 09/21/2019 [facility] 40 mg 05/12/2019 12:00:00 AM EST tablet,delayed release (DR/EC) 30 TAKE 1 TABLET BY MOUTH ONCE A DAY TAKE 1 TABLET BY MOUTH ONCE A DAY SOLD: 05/12/2019 [facility] 40 mg 05/12/2019 12:00:00 AM EST tablet,delayed release (DR/EC) 30 TAKE 1 TABLET BY MOUTH ONCE A DAY TAKE 1 TABLET BY MOUTH ONCE A DAY SOLD: 06/10/2019 [facility] 90 mcg/actuation 05/06/2019 12:00:00 AM EST HFA aerosol inha ler 18 INHALE TWO PUFFS BY MOUTH EVERY 4 HOURS NEEDED INHALE TWO PUFFS BY MOUTH EVERY 4 HOURS NEEDED SOLD: 05/25/2019 [facility] 90 mcg/actuation 05/06/2019 12:00:00 AM EST HFA aerosol inha ler 18 INHALE TWO PUFFS BY MOUTH EVERY 4 HOURS NEEDED INHALE TWO PUFFS BY MOUTH EVERY 4 HOURS NEEDED SOLD: 06/10/2019 [facility] 90 mcg/actuation 05/06/2019 12:00:00 AM EST HFA aerosol inha ler 18 INHALE TWO PUFFS BY MOUTH EVERY 4 HOURS NEEDED INHALE TWO PUFFS BY MOUTH EVERY 4 HOURS NEEDED SOLD: 08/05/2019 [facility] 90 mcg/actuation 05/06/2019 12:00:00 AM EST HFA aerosol inha ler 18 INHALE TWO PUFFS BY MOUTH EVERY 4 HOURS NEEDED INHALE TWO PUFFS BY MOUTH EVERY 4 HOURS NEEDED SOLD: 05/08/2019 [facility] 90 mcg/actuation 05/06/2019 12:00:00 AM EST HFA aerosol inha ler 18 INHALE TWO PUFFS BY MOUTH EVERY 4 HOURS NEEDED INHALE TWO PUFFS BY MOUTH EVERY 4 HOURS NEEDED SOLD: 07/20/2019 [facility] 90 mcg/actuation 05/06/2019 12:00:00 AM EST HFA aerosol inha ler 18 INHALE TWO PUFFS BY MOUTH EVERY 4 HOURS NEEDED INHALE TWO PUFFS BY MOUTH EVERY 4 HOURS NEEDED SOLD: 06/30/2019 [facility] 100 mg 03/31/2019 12:00:00 AM EST tablet 30 TAKE ONE TABLET BY MOUTH EVERY DAY TAKE ONE TABLET BY MOUTH EVERY DAY SOLD: 06/04/2019 [facility] quetiapine 100 MG Oral Tablet QUETIAPINE FUMARATE 03/31/2019 12: 00:00 AM EST tablet 60 TAKE TWO TABLETS BY MOUTH AT BED TIME TAKE TWO TABLETS BY MOUTH AT BEDTIME SOLD: 05/06/2019 [facility] quetiapine 100 MG Oral Tablet QUETIAPINE FUMARATE 03/31/2019 12: 00:00 AM EST tablet 60 TAKE TWO TABLETS BY MOUTH AT BED TIME TAKE TWO TABLETS BY MOUTH AT BEDTIME SOLD: 06/04/2019 [facility] 100 mg 03/31/2019 12:00:00 AM EST tablet 30 TAKE ONE TABLET BY MOUTH EVERY DAY TAKE ONE TABLET BY MOUTH EVERY DAY SOLD: 05/06/2019 [facility] 10 mg 03/06/2019 12:00:00 AM EDT tablet, sublingual 60 PLACE ONE TABLET UNDER THE TONGUE AND DISSOLVE TWICE A DAY PLACE ONE TABLET UNDER THE TONGUE AND DISSOLVE TWICE A DAY SOLD: 05/06/2019 [facility] 10 mg 03/06/2019 12:00:00 AM EDT tablet, sublingual [address] PLACE ONE TABLET UNDER THE TONGUE AND DISSOLVE TWICE A DAY PLACE ONE TABLET UNDER THE TONGUE AND DISSOLVE TWICE A DAY SOLD: 06/04/2019 [facility] 300 mg 02/12/2019 12:00:00 AM EDT tablet 30 TAKE ONE TABLET BY MOUTH DAILY EVERY EVENING TAKE ONE TABLET BY MOUTH DAILY EVERY EVENING SOLD: 05/20/2019 [facility] Insurance Providers Payer name Policy type / Coverage type Policy ID Covered republican ID Covered republican's relationship to alan Policy Alan Plan Information [facility] [id number] SP [id number] [facility] [id number] S [id number] [facility] [id number] S [id number] [facility] MED[facility] [id number] S [id number] [facility] MED[facility] [id number] S [id number] [facility] [id number] S [id number] MEDICAID [id number] S [id number] Medicaid P [id number] S [id number] [facility] [id number] S [id number] [facility] MED[facility] [id number] S [id number] [facility] [id number] [facility]-Med[facility] [id number] ANSI-Commercial [id number] [facility]-Medicaid [id number] [employer] FB [id number] S [id number] ANS-Medicaid [id number] ANSI-Commercial [id number] [employer] [facility] MEDICAID [id number] S [id number] [employer] FB [id number] S [id number] ANSI-Commercial [id number] ANS-Medicaid [id number] [employer] MEDICAID MCD HMO [id number] S [id number] [facility] [id number] SP [id number] [facility] [id number] S [id number] [facility]) O [id number] C [id number] [employer] MEDICA[employer] MCD HMO [id number] S [id number] [employer] [id number] SP [id number] [employer] [place] [id number] S [id number] BCBS HMO BLUE [id number] S [id number] [employer] [id number] SP [id number] [facility] P UNAVAILABLE C UNAVAILABLE SELF PAY UNAVAILABLE UNAVAILA BLE Problems, Conditions, and Diagnoses Code Display Name Description Problem Type Effective Dates Data Source(s) N40.0 [id number] Benign prostatic hyp erplasia, unspecified whether lower urinary tract symptoms present Problem 02/27/2020 12:00:00 AM EDT eCW1 ([facility]) E66.09 [id number] Class 2 obesity due to excess calories without serious comorbidity in adult, unspecified BMI Problem 02/27/2020 12:00:00 AM EDT eCW1 ([facility]) M54.31 [id number] Sciatica, right side Problem 12:00:00 AM EDT eCW1 ([facility]) M54.32 [id number] Sciatica, left side Problem 02/27/2020 12:00 :00 AM EDT eCW1 ([facility]) F43.23 [id number] Adjustment disorder with mixed a nxiety and depressed mood Problem 01/10/2020 12:00:00 AM EDT eCW1 ([facility]) F43.23 Adjustment disorder with mixed anxiety a nd depressed mood ADJUSTMENT DISORDER WITH MIXED ANXIETY AND DEPRESS Diagnosis 05/12/2020 01:20:00 PM [facility] F43.10 Post-traumatic stress disorder, unspecif ied POST-TRAUMATIC STRESS DISORDER, UNSPECIFIED Diagnosis 05/12/2020 01:20:00 PM [facility]an F41.0 Panic disorder [episodic paroxysmal anxi ety] PANIC DISORDER [EPISODIC PAROXYSMAL ANXIETY] Diagnosis 05/12/2020 01:20:[facility] F60.3 Borderline personality disorder BORDERLINE PERSONALITY DISORDER Diagnosis 04/21/2020 09:22:00 AM [facility] F41.8 Other specified anxiety disorders OTHER SPECIFIE D ANXIETY DISORDERS Diagnosis 04/09/2020 11:40:00 AM [facility] Z90.49 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 ACQUIRED ABSENCE OF OTHER SPECIFIED PARTS OF DIGES Diagnosis 03/17/2020 07:34:0 0 AM [facility] Z79.899 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 O THER SKILLED NURSING (CURRENT) DRUG THERAPY Diagnosis 03/17/2020 07:34:00 AM [facility] l R35.0 Frequency of micturition FREQUENCY OF MICTURITION Diag nosis 03/17/2020 07:34:00 AM [facility] M54.32 Sciatica, left side SCIATICA, LEFT SIDE Diagnosis 1 02:37:00 PM [facility] M51.34 Other intervertebral disc degeneration, thoracic region OTHER INTERVERTEBRAL DISC DEGENERATION, THORACIC R Diagnosis 0 02:06:00 PM [facility] M54.31 Sciatica, right side SCIATICA, RIGHT SIDE Diagnosis 03/02/2020 02:06:00 PM [facility] M25.559 Pain in unspecified hip PAIN IN UNSPECIFIED HIP Diagno sis 03/02/2020 02:06:00 PM [facility] E66.09 Other obesity due to excess calories OTH ER OBESITY DUE TO EXCESS CALORIES Diagnosis 02/27/2020 12:43:00 PM [facility] N40.0 Benign prostatic hyperplasia without low er urinary tract symptoms BENIGN PROSTATIC HYPERPLASIA WITHOUT LOWER URINRY Diagnosis 02/27/2020 12:43: 00 PM [facility] M25.552 Pain in left hip PAIN IN LEFT HIP Diagnosis 02/27/2020 12 :43:00 PM [facility] M25.551 Pain in right hip PAIN IN RIGHT HIP Diagnosis 02/26 12:43:00 PM [facility] Z13.220 Encounter for screening for lipoid disor ders ENCOUNTER FOR SCREENING FOR LIPOID DISOR Diagnosis 02/27/2020 12:43:00 PM [facility] N30.00 Acute cystitis without hematuria ACUTE CYSTITIS WITHOUT HEMATURIA Diagnosis 02/27/2020 12:43:00 PM [facility] Z87.440 Personal history of urinary (tract) infe ctions PERSONAL HISTORY OF URINARY (TRACT) INFECTIONS Diagnosis 02/23/2020 05:42:00 AM [facility] N40.1 Benign prostatic hyperplasia with lower urinary tract symptoms BENIGN PROSTATIC HYPERPLASIA WITH LOWER URINARY TR Diagnosis 02/23/2020 05:42:00 AM [facility] F41.9 Anxiety disorder, unspecified ANXIETY DISORDER, UNSPEC IFIED Diagnosis 02/06/2020 11:40:00 AM [facility] R30.0 Dysuria DYSURIA Diagnosis 02/05/2020 08:30:00 PM [facility] Z53.21 Procedure and treatment not carried out due to patient leaving prior to being seen by health care provider PROC/TRTMT NOT CRD OUT D/T PT LV BEF SEE N BY [facility] CARE PROV Diagnosis 12/16/2019 11:22:00 AM [facility] R63.4 Abnormal weight loss ABNORMAL WEIGHT LOSS Diagnosis 09/06/2019 02:18:00 PM [facility] Results ID Date Data Source [id number] 03/17/2020 09:18:00 AM [facility] Patient: NAVEED NAVARRO Observation Report - Physicians/Mid Levels [facility].VisitID: [id number] [place] [address] [phone], MRegistration Date/Time: 03/17/2020 06:49 Weight:113.3 kg (S). Height/Length:72 inches (S). BMI:33.9 FAMILY HISTORYNo significant family medical history. (Electronically signed by Liborio Diane 03/17/2020 08:50) Name Value Range Interpretation Code Description Data Stephanie rce(s) Supporting Document(s) ID Date Data Source [id number] 03/17/2020 08:41:00 AM EDT [facility] Name Value Range Interpretation Code Description Data Stephanie rce(s) Supporting Document(s) PSA SCREENING 3.3 ng/mL 0.0-4.0 [facility] THIS ASSAY WAS PERFORMED ON THE [employer] EXL USINGTHE B- GALACTOSIDASE/CRPG METHODOLOGY. THE PSA IS NOT AN ABSOLUTE TEST FOR MALIGNANCY. IT SHOULD BEUSED IN CONJUNCTION WITH INFORMATION AVAILABLE FROM THECLINICAL EVALUATION AND OTHER DIAGNOSTIC PROCEDURES. VALUES OBTAINED WITH DIFFERENT ASSAY METHODS CANNOT BE USEDINTERCHANGEABLY. ID Date Data Source [id number] 03/17/2020 08:25:00 AM [facility] Name Value Range Interpretation Code Description Data [facility] rce(s) Supporting Document(s) GLUCOSE 109 mg/dL 74-106 H [facility] BLOOD UREA NITROGEN 15 mg/dL 7-18 [facility] ital CREATININE 1.3 mg/dL 0.7-1.3 [facility] SODIUM 138 mmol/L 136-145 [facility] POTASSIUM 4.4 mmol/L 3.5-5.1 [facility] CHLORIDE 102 mmol/L 98-107 [facility] CO2 31 mmol/L 21-32 [facility] CALCIUM 9.1 mg/dL 8.5-10.1 [facility] ANION GAP 5.0 mmol/L 5-12 [facility] GLOMERULAR FILTRATION RATE 59 mL/min [facility] GFR IS CALCULATED IN mL/min/1.73m2 NEIL L FUNCTION: >90MILDLY DECREASED: 60-89MILDY TO MODERATELY DECREASED: 45-59 MODERATELY TO SEVERELY DECREASED: 30-44SEVERELY DECREASED: 15-29RENAL FAILURE: <15 ID Date Data Source [id number] 03/17/2020 08:08:00 AM EDT [facility] Name Value Range Interpretation Code Description Data Stephanie rce(s) Supporting Document(s) WHITE BLOOD COUNT 7.5 K/mm3 4.0-10.0 [facility] RED BLOOD COUNT 5.52 M/mm3 4.50-6.00 [facility] HEMOGLOBIN 16.2 gm/dL 14.0-18.0 [facility] HEMATOCRIT 48.5 % 42.0-54.0 [facility] MEAN CELL VOLUME 87.9 fl 80-96 [facility] MEAN CORPUSCULAR HEMOGLOBIN 29.3 pg 27.0-31.0 [facility] MEAN CORPUSCULAR HGB CONC 33.4 g/dl 32.0-36.0 [facility] RED CELL DISTRIBUTION WIDTH 13.1 % 10.0-14.5 [facility] PLATELET COUNT 200 K/mm3 172-450 [facility] MEAN PLATELET VOLUME 11.1 fl 9.0-13.0 [facility] pital GRAN % 55.2 % 50-80.0 [facility] IG% 0.1 % 0.0-0.2 [facility] LYMPH % 33.1 % 25.0-50.0 [facility] MONO % 8.2 % 2.0-10.0 [facility] EOS % 2.9 % 0-5.0 [facility] BASO % 0.5 % 0.0-2.0 [facility] GRAN # 4.1 K/mm3 2.0-8.00 [facility] IG# 0.0 K/mm3 0.0-0.2 [facility] LYMPH # 2.5 K/mm3 1.0-5.0 [facility] MONO # 0.6 K/mm3 0.10-1.20 [facility] EOS # 0.2 K/mm3 0.0-0.5 [facility] BASO # 0.0 K/mm3 0.0-0.2 [facility] ID Date Data Source [id number] 03/17/2020 07:29:00 AM EDT [facility] TSYSORDER [id number] Name Value Range Interpretation Code Description Data Stephanie rce(s) Supporting Document(s) URINE RBC 3-5 /hpf 0-3 H [facility] URINE WBC 1-3 /hpf 0-5 [facility] URINE EPITHELIAL CELLS NONE SEEN /hpf 0 [facility] URINE BACTERIA TRACE NONE SEEN H [facility] URINE MUCUS 2+ NEGATIVE [facility] ID Date Data Source [id number] 03/17/2020 07:23:00 AM EDT [facility] ital TSYSORDER [id number] Name Value Range Interpretation Code Description Data Stephanie rce(s) Supporting Document(s) URINE COLOR. [facility] URINE APPEARANCE CLEAR [facility] URINE GLUCOSE (UA) NEGATIVE mg/dL NEGATIVE [facility] URINE BILIRUBIN NEGATIVE NEGATIVE [facility] URINE KETONE NEGATIVE mg/dL NEGATIVE [facility] SPECIFIC GRAVITY,URINE >1.030 1.001-1.035 [facility] URINE BLOOD TRACE NEGATIVE [facility] 03/17/20 0723: BLOOD previously reporte d as: TRACE PH,URINE 6.0 5.0-9.0 [facility] URINE PROTEIN NEGATIVE mg/dL NEGATIVE [facility] URINE UROBILINOGEN NORMAL(0.2-1) mg/dL 0-1 R [facility] URINE NITRATE NEGATIVE NEGATIVE [facility] URINE LEUKOCYTE ESTERASE NEGATIVE NEGATIVE [facility] ID Date Data Source [id number] 03/02/2020 03:12:00 PM EDT [facility] Left Hip DATE OF EXAMINATION: 0 14:11 EDT HIP UNILATERAL COMPLETE INDICATION: Pain COMPARISON: None TECHNIQUE: 2 views of the hip were obtained. FINDINGS: No fracture or dislocation. The bone density appears normal with noevidence of lytic or blastic lesions. The joint space appears normal. IMPRESSION: Negative exam. Electronically signed in PS360 by: Curt Leger M.D. 03/02/2020 15:06 EDT Name Value Range Interpretation Code Description Data Stephanie rce(s) Supporting Document(s) ID Date Data Source [id number] 03/02/2020 03:11:00 PM EDT [facility] Right Hip DATE OF EXAMINATION: 03/02/20 20 14:11 EDT HIP UNILATERAL COMPLETE INDICATION: Pain COMPARISON: None TECHNIQUE: 2 views of the hip were obtained. FINDINGS: No fracture or dislocation. The bone density appears normal with noevidence of lytic or blastic lesions. The joint space appears normal. IMPRESSION: Negative exam. Electronically signed in PS360 by: Curt Leger M.D. 03/02/2020 15:05 EDT Name Value Range Interpretation Code Description Data Stephanie rce(s) Supporting Document(s) ID Date Data Source [id number] 03/02/2020 03:11:00 PM EDT [facility] DATE OF EXAMINATION: 2019 14:11 EDT SPINE LUMBAR COMP INDICATION: Pain COMPARISON: None TECHNIQUE: AP, lateral, bilateral oblique views of the lumbar spine wereobtained . FINDINGS: There is no fracture or subluxation. There is degenerative disc spacenarrowing at T11-T12, T12-L1, L1- L2. Small osteophytes at several levels.Paraspinal soft tissues are unremarkable. No evidence of pars defect orspondylolisthesis. IMPRESSION: Degenerative changes lower thoracic and upper lumbar spine Electronically signed in PS360 by: Curt Leger M.D. 03/02/2020 15:05 EDT Name Value Range Interpretation Code Description Data [facility] rce(s) Supporting Document(s) ID Date Data Source [id number] 02/27/2020 02:25:00 PM EDT [facility] Name Value Range Interpretation Code Description Data [facility] Presbyteriane(s) Supporting Document(s) CHOLESTEROL 204 mg/dL 0-200 H [facility] TRIGLYCERIDES 172 mg/dL 0-150 H [facility] LDL CHOLESTEROL 134 mg/dL 0-100 H [facility] HDL CHOLESTEROL 36 mg/dL 40-60 L [facility] CHOL/HDL RATIO 5.7 0.0-5.0 H [facility] ID Date Data Source [id number] 02/27/2020 02:25:00 PM T [facility] Name Value Range Interpretation Code Description Data [facility] Pres[facility](s) Supporting Document(s) GLUCOSE 102 mg/dL 74-106 [facility] BLOOD UREA NITROGEN 16 mg/dL 7-18 [facility] ital CREATININE 1.4 mg/dL 0.7-1.3 H [facility] SODIUM 140 mmol/L 136-145 [facility] POTASSIUM 4.7 mmol/L 3.5-5.1 [facility] CHLORIDE 103 mmol/L 98-107 [facility] CO2 30 mmol/L 21-32 [facility] CALCIUM 9.5 mg/dL 8.5-10.1 [facility] ANION GAP 7.0 mmol/L 5-12 [facility] GLOMERULAR FILTRATION RATE 54 mL/min [facility] GFR IS CALCULATED IN mL/min/1.73m2 NEIL L FUNCTION: >90MILDLY DECREASED: 60-89MILDY TO MODERATELY DECREASED: 45-59 MODERATELY TO SEVERELY DECREASED: 30-44SEVERELY DECREASED: 15-29RENAL FAILURE: <15 AST 19 U/L 15-37 [facility] ALT 43 U/L 12-78 [facility] ALKALINE PHOSPHATASE 80 U/L 46-116 [facility] TOTAL BILIRUBIN 1.0 mg/dL 0.2-1.0 [facility] TOTAL PROTEIN 8.0 g/dl 6.4-8.2 [facility] ALBUMIN 4.3 gm/dL 3.4-5.0 [facility] ID Date Data Source LIPID PROFILE 02/27/2020 04:21:20 AM EDT eCW1 ([facility]) Name Value Range Interpretation Code Description Data Stephanie rce(s) Supporting Document(s) 121 0-100 LDL CHOLESTEROL eCW1 ([facility]) 204 CHOLESTEROL eCW1 ([facility]) Cholesterol in LDL [Mass/volume] in Serum or Plasma by calculation 134 LDL CHOLESTEROL eCW1 ([facility]) 36 HDL CHOLESTEROL eCW1 ([facility]) 172 TRIGLYCERIDES eCW1 ([facility]) 5.7 CHOL/HDL RATIO eCW1 ([facility]) ID Date Data Source [id number] 02/23/2020 07:15:00 AM EDT [facility] Patient: NAVEED NAVARRO Observation Report - Physicians/Mid Levels [facility].VisitID: [id number] [place] [address] [phone], MRegistration Date/Time: 02/23/2020 05:06 Weight:112 kg (S). Height/Length:72 inches (S). BMI:33.5 PAST HISTORYProblems:Bronchitis.Back Pain.Anxiety.Viral Disease.Tendonitis.Pharyngitis.Sinusitis.Gastroesophageal Reflux Disease.UTI - Urinary Tract Infection.Anxiety Reaction.Mental Illness. Additional Surgeries:Cholecystectomy. Medications:ClonazePAM Oral (Tablet 1 mg) 1 tablet, at bedtime, last dose last night.Protonix Oral (Tablet Delayed Release 40 mg), daily, last dose this am.SEROquel Oral (Tablet 25 mg) 1 tablet, at bedtime, last dose last night.Zoloft Oral (Tablet 100 mg) 1 tablet, at bedtime, last dose this am. Allergies:No Known Environmental Allergies.Vicodin. (hallucinations). FAMILY HISTORYNo significant family medical history. (Electronically signed by Cuco Groves P.A. 02/23/2020 06:48) Name Value Range Interpretation Code Description Data Stephanie rce(s) Supporting Document(s) ID Date Data Source [id number] 02/23/2020 05:23:00 AM EDT [facility] TSYSORDER [id number] Name Value Range Interpretation Code Description Data [facility] rce(s) Supporting Document(s) URINE COLOR. [facility] URINE APPEARANCE CLEAR [facility] SPECIFIC GRAVITY,URINE 1.020 1.001-1.035 [facility] URINE LEUKOCYTE ESTERASE NEGATIVE NEGATIVE [facility] URINE NITRATE NEGATIVE NEGATIVE [facility] PH,URINE 6.5 5.0-9.0 [facility] URINE PROTEIN NEGATIVE mg/dL NEGATIVE [facility] URINE GLUCOSE (UA) NEGATIVE mg/dL NEGATIVE [facility] URINE KETONE NEGATIVE mg/dL NEGATIVE [facility] URINE UROBILINOGEN NORMAL(0.2-1) mg/dL 0-1 R [facility] URINE BILIRUBIN NEGATIVE NEGATIVE [facility] URINE BLOOD NEGATIVE NEGATIVE [facility] ID Date Data Source [id number] 02/06/2020 07:39:00 AM EDT [facility] Patient: NAVEED NAVARRO Observation Report - Physicians/Mid Levels [facility].VisitID: [id number] [place] [address] [phone], MRegistration Date/Time: 02/05/2020 19:32 Weight:112 kg (S). Height/Length:72 inches (S). BMI:33.5 PAST HISTORYProblems:Back Pain.Bronchitis.Anxiety.Anxiety Reaction.Mental Illness.Tendonitis.Viral Disease.Pharyngitis.Sinusitis. Additional Surgeries:Cholecystectomy. Medications:ClonazePAM Oral (Tablet 1 mg) 1 tablet, at bedtime, last dose last night.Protonix Oral (Tablet Delayed Release 40 mg), daily, last dose this am.SEROquel Oral (Tablet 25 mg) 1 tablet, at bedtime, last dose last night.Zoloft Oral (Tablet 100 mg) 1 tablet, at bedtime, last dose this am. Allergies:No Known Environmental Allergies.Vicodin. (hallucinations). FAMILY HISTORYNegative. No significant family medical history. (Electronically signed by Liborio Jacobsen 02/06/2020 07:30) Name Value Range Interpretation Code Description Data Stephanie rce(s) Supporting Document(s) ID Date Data Source [id number] 02/08/2020 11:24:00 AM EDT [facility] Name Value Range Interpretation Code Description Data Stephanie rce(s) Supporting Document(s) ORGANISM [facility] COLONY COUNT N [facility] ID Date Data Source [id number] 02/08/2020 06:05:00 AM EDT [facility] Name Value Range Interpretation Code Description Data Stephanie rce(s) Supporting Document(s) CHLAMYDIA TRACHOMATIS, MARISELA Negative Negative [facility] NEISSERIA GONORRHOEAE, MARISELA Negative Negative [facility] Performed at: RN - [facility] [place] [id number] Director: Sarah Roth MD, Phone: [phone] ID Date Data Source [id number] 02/08/2020 06:05:00 AM EDT [facility] Name Value Range Interpretation Code Description Data Stephanie rce(s) Supporting Document(s) Chlamydia/GC Amplification [facility] TESTS RESULT FLAG UNI TS REF RANGE LAB C trachomatis, MARISELA Negative (Negative) 01N gonorrhoeae, MARISELA Negative (Negative) 01 FLAG LEGEND: L-Low Normal,H-High Normal,LL-Alert Low,HH-Alert High <-Panic Low,>-Panic High,A-Abnormal,AA-Critical Abnormal Performed at:01 RN [facility] [address] [id number] Sarah Roth MD, ID Date Data Source [id number] 02/05/2020 08:15:00 PM EDT [facility] TSYS[facility] [id number] Name Value Range Interpretation Code Description Data Stephanie rce(s) Supporting Document(s) URINE RBC 5-10 /hpf 0-3 H [facility] URINE WBC 5-10 /hpf 0-5 H [facility] URINE EPITHELIAL CELLS 2+ /hpf 0 [facility] ospital URINE BACTERIA 3+ NONE SEEN [facility] CULTURE ADDED TO SAMPLE. ID Date Data Source [id number] 02/05/2020 08:11:00 PM EDT [facility] TSYSORDER [id number] Name Value Range Interpretation Code Description Data Stephanie rce(s) Supporting Document(s) URINE COLOR. YELLOW [facility] URINE APPEARANCE SLIGHTY CLOUDY [facility] SPECIFIC GRAVITY,URINE 1.015 1.001-1.035 [facility] URINE LEUKOCYTE ESTERASE 1+(SMALL) NEGATIVE [facility] URINE NITRATE NEGATIVE NEGATIVE [facility] PH,URINE 5.5 5.0-9.0 [facility] URINE PROTEIN TRACE mg/dL NEGATIVE [facility] URINE GLUCOSE (UA) NEGATIVE mg/dL NEGATIVE [facility] URINE KETONE NEGATIVE mg/dL NEGATIVE [facility] URINE UROBILINOGEN NORMAL(0.2-1) mg/dL 0-1 [facility] URINE BILIRUBIN NEGATIVE NEGATIVE [facility] URINE BLOOD 2+(MODERATE) NEGATIVE [facility] Procedure Vital Signs ID Date Data Source UNK Name Value Range Interpretation Code Description Data Source(s) Respiratory rate 18 /min 18 /min eCW1 ([facility]) Heart rate 66 /min 66 /min eCW1 ([facility]) Body mass index (BMI) [Ratio] 42.82 kg/m2 42.82 kg/m2 eCW1 ([facility]) Body weight 290 [lb_av] 290 [lb_av] eCW1 ([facility]) Body height 69 [in_i] 69 [in_i] eCW1 ([facility]) ID Date Data Source [id number] 04/10/2020 11:13:00 AM EST [facility] Name Value Range Interpretation Code Description Data Source(s) WEIGHT 113.39 kilos 113.39 kilos [facility] HEIGHT 182.88 centimeters 182.88 centimeter [facility] WEIGHT 113.39 kilos 113.39 kilos [facility] HEIGHT 182.88 centimeters 182.88 centimeter [facility] ID Date Data Source [id number] 04/10/2020 11:13:00 AM EST [facility] Name Value Range Interpretation Code Description Data Source(s) WEIGHT 117.93 kilos 117.93 kilos [facility] HEIGHT 182.88 centimeters 182.88 centimeter [facility] WEIGHT 117.93 kilos 117.93 kilos [facility] HEIGHT 182.88 centimeters 182.88 centimeter [facility] Patient Treatment Plan of Care Planned Activity Planned Date Details Description Data Source (s) physical therapy eval and tx - 02/27/2020 12:00:00 AM EDT eCW1 ([facility]) atorvastatin 20 MG Oral Tablet [Lipitor] 02/27/2020 12:00:00 AM EDT eCW1 ([facility]) Tamsulosin hydrochloride 0.4 MG Oral Capsule [Flomax] 02/27/2020 12:00:00 AM EDT eCW1 ([facility]) physical therapy eval and tx - 02/27/2020 12:00:00 AM EDT eCW1 ([facility]) physical therapy eval and tx - 02/27/2020 12:00:00 AM EDT eCW1 ([facility])
--- NOTE | 2020-06-22 10:00 | REP ---
INDICATION: back pain, urinary hesitancy COMPARISON: None TECHNIQUE: Axial noncontrast images from the lung bases to the pubic symphysis with coronal and sagittal reformations. This CT examination was performed using the following dose reduction techniques: Automated exposure control, adjustment of mA and/or kv according to the patient's size, and use of iterative reconstruction technique. FINDINGS: Lung bases demonstrate chronic interstitial changes along with reticulonodular tree in bud infiltrative pattern (left greater than right) suggesting an acute pneumonitis. No significant focal consolidation or effusion. Liver, spleen, pancreas, bilateral adrenal glands and kidneys are normal. The enteric system is unremarkable and without obstruction or acute inflammatory process. Normal terminal ileum and appendix identified in the right lower quadrant. Scattered sigmoid diverticula noted without acute diverticulitis. Pelvis demonstrates normal bladder and age-appropriate prostate/seminal vesicles. No ascites. No free air. No adenopathy. No focal inflammatory stranding. Abdominal aorta without aneurysm. Musculoskeletal structures are intact and without acute osseous abnormality. IMPRESSION: 1. Changes at the lung bases as described above suggesting acute pneumonitis and should be correlated clinically. 2. No acute abdominopelvic pathology appreciated. 3. Sigmoid diverticulosis without acute diverticulitis. 4. Normal appearance to the urinary tract system. <Electronically signed by Abdirizak Tran > 06/22/20 0912
--- OUTSIDE RECORDS SUMMARY | 2020-06-22 10:36 | CCD ---
Author Author [facility] Address Unknown Phone Unavailable Care Team Providers Care Sanitation Director Name Role Phone SYMENOW, G CHRISTOPHER PA [...] NAVEED HAYES MD Unavailable Unavailable COLIN SR, NVAEED HAYES MD Unavailable Unavailable COLIN SR, NAVEED [...] VALE MD Unavailable Unavailable AVITIA, KEENAN JOE CLOTH COLORS EXAMINER-C, MSN Unavailable Unavailab le AVITIA, KEENAN JOE CLOTH COLORS EXAMINER-C, MSN Unavailable Unavailab le AVITIA, KEENAN JOE CLOTH COLORS EXAMINER-C, MSN Unavailable Unavailab le AVITIA, KEENAN JOE CLOTH COLORS EXAMINER-C, MSN Unavailable Unavailab le AVITIA, KEENAN JOE CLOTH COLORS EXAMINER-C, MSN Unavailable Unavailab le AVITIA, KEENAN JOE CLOTH COLORS EXAMINER-C, MSN Unavailable Unavailab le AVITIA, KEENAN JOE CLOTH COLORS EXAMINER-C, MSN Unavailable Unavailab le AVITIA, KEENAN JOE CLOTH COLORS EXAMINER-C, MSN Unavailable Unavailab le AVITIA, KEENAN JOE CLOTH COLORS EXAMINER-C, MSN Unavailable Unavailab le AVITIA, KEENAN JOE CLOTH COLORS EXAMINER-C, MSN Unavailable Unavailab le AVITIA, KEENAN JOE CLOTH COLORS EXAMINER-C, MSN Unavailable Unavailab le AVITIA, KEENAN JOE CLOTH COLORS EXAMINER-C, MSN Unavailable Unavailab le AVITIA, KEENAN JOE CLOTH COLORS EXAMINER-C, MSN Unavailable Unavailab le AVITIA, KEENAN JOE CLOTH COLORS EXAMINER-C, MSN Unavailable Unavailab le AVITIA, KEENAN JOE CLOTH COLORS EXAMINER-C, MSN Unavailable Unavailab le AVITIA, KEENAN JOE CLOTH COLORS EXAMINER-C, MSN Unavailable Unavailab le AVITIA, KEENAN JOE CLOTH COLORS EXAMINER-C, MSN Unavailable Unavailab le AVITIA, KEENAN JOE CLOTH COLORS EXAMINER-C, MSN Unavailable Unavailab le AVITIA, KEENAN JOE CLOTH COLORS EXAMINER-C, MSN Unavailable Unavailab le AVITIA, KEENAN JOE CLOTH COLORS EXAMINER-C, MSN Unavailable Unavailab le AVITIA, KEENAN JOE CLOTH COLORS EXAMINER-C, MSN Unavailable Unavailab le AVITIA, KEENAN JOE CLOTH COLORS EXAMINER-C, MSN Unavailable Unavailab le AVITIA, KEENAN JOE CLOTH COLORS EXAMINER-C, MSN Unavailable Unavailab le AVITIA, KEENAN JOE CLOTH COLORS EXAMINER-C, MSN Unavailable Unavailab le AVITIA, KEENAN JOE CLOTH COLORS EXAMINER-C, MSN Unavailable Unavailab le AVITIA, KEENAN JOE CLOTH COLORS EXAMINER-C, MSN Unavailable Unavailab le AVITIA, KEENAN JOE CLOTH COLORS EXAMINER-C, MSN Unavailable Unavailab le AVITIA, KEENAN JOE CLOTH COLORS EXAMINER-C, MSN Unavailable Unavailab le AVITIA, KEENAN JOE CLOTH COLORS EXAMINER-C, MSN Unavailable Unavailab le AVITIA, KEENAN JOE CLOTH COLORS EXAMINER-C, MSN Unavailable Unavailab le AVITIA, KEENAN JOE CLOTH COLORS EXAMINER-C, MSN Unavailable Unavailab le AVITIA, KEENAN JOE CLOTH COLORS EXAMINER-C, MSN Unavailable Unavailab le AVITIA, KEENAN JOE CLOTH COLORS EXAMINER-C, MSN Unavailable Unavailab le AVITIA, KEENAN JOE CLOTH COLORS EXAMINER-C, MSN Unavailable Unavailab le AVITIA, KEENAN JOE CLOTH COLORS EXAMINER-C, MSN Unavailable Unavailab le AVITIA, KEENAN JOE CLOTH COLORS EXAMINER-C, MSN Unavailable Unavailab le AVITIA, KEENAN JOE CLOTH COLORS EXAMINER-C, MSN Unavailable Unavailab le AVITIA, KEENAN JOE CLOTH COLORS EXAMINER-C, MSN Unavailable Unavailab le AVITIAKEENAN HOLLEYA CLOTH COLORS EXAMINER-C, MSN Unavailable Unavailab le AVITIAKEENAN HOLLEYA CLOTH COLORS EXAMINER-C, MSN Unavailable Unavailab le AVITIA, KEENAN CALLEA CLOTH COLORS EXAMINER-C, MSN Unavailable Unavailab le AVITIA, KEENAN CALLEA CLOTH COLORS EXAMINER-C, MSN Unavailable Unavailab le AVITIA, KEENAN CALLEA CLOTH COLORS EXAMINER-C, MSN Unavailable Unavailab le SONJA, JORGE EWA [...] [facility]available [facility] Unavailable Unavailable DESJARLAIS, ASHLEIGH COMPUTER SYSTEMS CONSULTANT Unavailable Unavailable DESJARLAIS, ASHLEIGH COMPUTER SYSTEMS CONSULTANT Unavailable Unavailable DESJARLAIS, ASHLEIGH COMPUTER SYSTEMS CONSULTANT Unavailable Unavailable DESJARLAIS, ASHLEIGH COMPUTER SYSTEMS CONSULTANT Unavailable Unavailable DESJARLAIS, ASHLEIGH COMPUTER SYSTEMS CONSULTANT Unavailable Unavailable DESJARLAIS, ASHLEIGH COMPUTER SYSTEMS CONSULTANT Unavailable Unavailable DESJARLAIS, ASHLEIGH COMPUTER SYSTEMS CONSULTANT Unavailable Unavailable DESJARLAIS, ASHLEIGH COMPUTER SYSTEMS CONSULTANT Unavailable Unavailable DESJARLAIS, ASHLEIGH COMPUTER SYSTEMS CONSULTANT Unavailable Unavailable Rydberg, Loreta PA Unavailable Unavailable [...] is protected by Article 27-F of the [facility] Public Health law. If you continue you may have access to information: Regarding HIV / AIDS; Provided by facilities licensed or operated by the [facility] Office of Mental Health; or Provided by the [facility] Office for People With Developmental Disabilities. If such information is present, then the following [facility] mandated warning applies: This information has been [...] law may result in a fine or assisted sentence or both. A general authorization for the release of medical or other information is NOT sufficient authorization for further disc losure. Allergies and Adverse Reactions Type Description Substance Reaction Status Data Source(s ) Drug allergy MDX - Nka - No Known Allergies MDX - Nka - No Known [facility] Encounter Providers Location Date Indications Data Source(s ) Outpatient Attender: ASHLEIGH MATSON NP 06/12/2020 11: 33:00 AM [facility] Outpatient Attender: ASHLEIGH MATSON NP 05/12/2020 01: 20:00 PM [facility] Outpatient [facility] 04/30/2020 12:00:00 AM EST eCW1 ([facility]) Outpatient Attender: ASHLEIGH MATSON NP 04/21/2020 09: 22:00 AM [facility] Outpatient Attender: ASHLEIGH MATSON COMPUTER SYSTEMS CONSULTANT 04/09/2020 11: 40:00 AM [facility] Outpatient Attender: ASHLEIGH MATSON NP 03/24/2020 10: 00:00 AM [facility] Outpatient Attender: ABIGAIL COLIN SR 03/22/2020 10:36:00 AM [facility] Emergency Attender: ANTONIO KING PAReferrer: BIJU COLIN SR EMERGENCY ROOM-ER 03/17/2020 07:34:00 AM EDT - 03/17/2020 08:51:00 AM [facility] Patient discharged. Outpatient Attender: ASHLEIGH MATSON COMPUTER SYSTEMS CONSULTANT 03/10/2020 11: 40:00 AM [facility] Outpatient Attender: ABIGAIL COLIN SR 03/02 02:58:00 PM EDT - 03/18/2020 10:36:00 AM [facility] Patient discharged. Outpatient Attender: ABIGAIL COLIN SRReferrer: ABIGAIL Douglas SR 03/02/2020 02:06:00 PM EDT - 03/02/2020 02:06:00 PM EDT [facility] Outpatient Attender: ABIGAIL COLIN SRReferrer: EBONY MAE MSN EMERGENCY ROOM-[facility] 02/27/2020 12:43:00 PM EDT - 02/27/2020 12:43:00 PM [facility] Outpatient [facility] 02/27/2020 12:00:00 AM EDT eCW1 ([facility]) Emergency Attender: CUCO GROVES PAReferrer: Calin ROE, MSN EMERGENCY ROOM-ER 02/23/2020 05:42:00 AM EDT - 02/23/2020 06:05:00 AM [facility] Patient discharged. Outpatient Attender: ASHLEIGH MATSON COMPUTER SYSTEMS CONSULTANT 02/20/2020 11: 40:00 AM [facility] Outpatient Attender: ASHLEIGH MATSON NP 02/06/2020 11: 40:00 AM [facility] Emergency Attender: RICKY CHOW FELISA ttender: VARUN GARCIA PAReferrer: JOE ROE, MSN EMERGENCY ROOM-ER 02/05/2020 08:30:00 PM EDT - 02/05/2020 08:58:00 PM [facility] Patient discharged. Outpatient Attender: VARUN GARCIA PAConsultant: [id number] 02/05/2020 07:55:00 PM [facility] Outpatient Attender: ASHLEIGH MATSON COMPUTER SYSTEMS CONSULTANT 01/22/2020 11: 40:00 AM [facility] Outpatient Attender: ASHLEIGH CHARLESRLAIS COMPUTER SYSTEMS CONSULTANT 01/08/2020 11: 40:00 AM [facility] Outpatient Attender: ASHLEIGH CHARLESRLAIS COMPUTER SYSTEMS CONSULTANT 12/25/2019 01: 00:00 PM [facility] Outpatient [facility] 12/18/2019 12:00:00 AM [facility] eCW1 ([facility]) Outpatient Attender: EWA CASILLAS PA-C 12/16/2019 11:22:00 AM [facility] Outpatient Attender: ASHLEIGH CHARLESRLAIS COMPUTER SYSTEMS CONSULTANT 12/10/2019 11: 00:00 AM [facility] Outpatient Attender: ASHLEIGH ANNMARIEJARLAIS COMPUTER SYSTEMS CONSULTANT 11/19/2019 11: 20:00 AM [facility] Outpatient Attender: Nichelle De Luna [facility]ULT [facility] 10/29/2019 07:35:42 PM [facility] Outpatient Attender: Nichelle De Luna [facility] 10/19/2019 12:10:22 AM [facility] Outpatient Attender: ASHLEIGH CHARLESRLAIS COMPUTER SYSTEMS CONSULTANT 10/18/2019 01: 00:00 PM [facility] Outpatient Attender: ASHLEIGH DESJARLAIS COMPUTER SYSTEMS CONSULTANT 09/20/2019 11: 00:00 AM [facility] Outpatient Attender: ASHLEIGH DESJARLAIS COMPUTER SYSTEMS CONSULTANT 09/06/2019 02: 18:00 PM [facility] Outpatient Attender: ASHLEIGH ANNMARIEJARLAIS COMPUTER SYSTEMS CONSULTANT 08/23/2019 11: 00:00 AM [facility] Outpatient Attender: ASHLEIGH ANNMARIEJARLAIS COMPUTER SYSTEMS CONSULTANT 07/30/2019 10: 40:00 AM [facility] Outpatient Attender: ASHLEIGH ANNMARIEJARLAIS COMPUTER SYSTEMS CONSULTANT 06/28/2019 12: 59:00 PM [facility] Outpatient Attender: ASHLEIGH MATSON NP 06/07/2019 10: 34:00 AM [facility] Outpatient Attender: ASHLEIGH MATSON NP 05/03/2019 02: 00:00 PM [facility] Outpatient Attender: ASHLEIGH MATSON COMPUTER SYSTEMS CONSULTANT 04/05/2019 01: 59:00 PM [facility] Emergency Attender: ANTONIO VASQUEZ 06/19 12:17:00 PM [facility] - 06/19/2014 12:30:00 PM [facility] Emergency Attender: MERLE DE LA GARZA MD 015 04:15:00 PM [facility] 06/02/2014 07:15:00 PM [facility] Inpatient Attender: PENG Appiahitter: BEATRIZ KINSEY MD 07/11/2013 12:40:00 PM [facility] 07/12/2013 01:22:00 AM [facility] Emergency Attender: ISRA HAYDEN MD 06:14:00 PM [facility] 04/03/2013 08:39:00 PM [facility] Outpatient Attender: Loreta Miller PAReferrer: Loreta VASQUEZ 09/18/2012 02:32:00 PM [facility] Medications Medication Brand Name Start Date Product [...] physical therapy eval and tx - eCW1 ([facility]) physical therapy eval and tx - UNK 02/27/2020 12:00:00 AM EDT active physical therapy eval and tx - eCW1 ([facility]) physical therapy eval and tx - UNK 02/27/2020 12:00:00 AM EDT active physical therapy eval and tx - eCW1 ([facility]) physical therapy eval and tx - UNK 02/27/2020 12:00:00 AM EDT active physical therapy eval and tx - eCW1 ([facility]) atorvastatin 20 MG Oral Tablet [Lipitor] Lipitor [...] physical therapy eval and tx - eCW1 ([facility]) Tamsulosin hydrochloride 0.4 MG Oral Capsule [Flomax] [...] ac tive Propranolol HCl 20 MG eCW1 ([facility]) Propranolol Hydrochloride 20 MG Oral Tablet Propranolo l HCl 20 MG Propranolol HCl 20 MG 12/10/2019 12:00:00 AM EDT 1.0 {tablet} ac tive Propranolol HCl 20 MG eCW1 ([facility]) Propranolol Hydrochloride 20 MG Oral Tablet Propranolo l HCl 20 MG Propranolol HCl 20 MG 12/10/2019 12:00:00 AM EDT 1.0 {tablet} ac tive Propranolol HCl 20 MG eCW1 ([facility]) 5 mg 12/03/2019 12:00:00 AM EDT [...] DAILY DOSE = 1 TABLET SOLD: 08/02/2019 [facility] Triazolam 0.25 MG Oral Tablet [Halcion] [...] MOUTH EVERY DAY SOLD: 06/04/2019 [email or web address] quetiapine 100 MG Oral Tablet QUETIAPINE FUMARATE [...] type / Coverage type Policy ID Covered constitution party ID Covered constitution party's relationship to alan Policy Alan Plan Information [facility] [id number] SP [id number] [facility] [id number] S [id number] [facility] MEDICAID [id number] S [id number] [facility] MEDICAID [id number] S [id number] [facility] MEDICAID [id number] S [id number] [facility] [id number] S [id number] MEDICAID [id number] S [id number] Medicaid P [id number] S [id number] [facility] [id number] S [id number] [facility] MEDICAID [id number] S [id number] [facility]-Medicaid [id number] [facility]-Medicaid [id number] ANSI-Commercial [id number] [facility]-Medicaid [id number] UNHC FB [id number] S [id number] ANS-Medicaid [id number] ANSI-Commercial [id number] [employer] MEDICAID [id number] S [id number] UNHC FB [id number] S [id number] ANSI-Commercial [id number] ANS-Medicaid [id number] UNITED HEALTHCARE MEDICAID MCD HMO [id number] S [id number] UNHC COMMUNITY PLAN [facility] [id number] SP [id number] [facility] [id number] S [id number] [facility](MCAID) O [id number] C [id number] [employer] MEDICAID MCD HMO [id number] S [id number] BLUE [employer] JONES PLAN [id number] SP [id number] [employer] [place] [id number] S [id number] BCBS HMO BLUE [id number] S [id number] [employer] PLAN [id number] SP [id number] [facility] P UNAVAILABLE C UNAVAILABLE SELF PAY UNAVAILABLE UNAVAILA BLE Problems, Conditions, and Diagnoses Code Display Name Description Problem Type Effective Dates Data Source(s) N40.0 [id number] Benign prostatic hyp erplasia, unspecified whether lower urinary tract symptoms present Problem 02/27/2020 12:00:00 AM EDT eCW1 ([facility]) E66.09 [id number] Class 2 obesity due to excess calories without serious comorbidity in adult, unspecified BMI Problem 02/27/2020 12:00:00 AM EDT eCW1 ([facility]) M54.31 [id number] Sciatica, right side Problem 12:00:00 AM EDT eCW1 ([facility]) M54.32 [id number] Sciatica, left side Problem 02/27/2020 12:00 :00 AM EDT eCW1 ([facility]) F43.23 [id number] Adjustment disorder with mixed a nxiety and depressed mood Problem 01/10/2020 12:00:00 AM EDT eCW1 ([facility]) F43.23 Adjustment disorder with mixed anxiety a nd depressed mood ADJUSTMENT DISORDER WITH MIXED ANXIETY AND DEPRESS Diagnosis 05/12/2020 01:20:00 PM [facility] F43.10 Post-traumatic stress disorder, unspecif ied POST-TRAUMATIC STRESS DISORDER, UNSPECIFIED Diagnosis 05/12/2020 01:20:00 PM [facility] shannan F41.0 Panic disorder [episodic paroxysmal anxi ety] PANIC DISORDER [EPISODIC PAROXYSMAL ANXIETY] Diagnosis 05/12/2020 [facility]3 Borderline personality disorder BORDERLINE PERSONALITY DISORDER Diagnosis 04/21/2020 09:22:00 AM [facility] F41.8 Other specified anxiety disorders OTHER SPECIFIE D ANXIETY DISORDERS Diagnosis 04/09/2020 11:40:00 AM [facility] Z90.49 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 ACQUIRED ABSENCE OF OTHER SPECIFIED PARTS OF DIGES Diagnosis 03/17/2020 07:34:0 0 AM [facility] Z79.899 Other oil heaterman (current) drug therapy O THER HALF-WAY (CURRENT) DRUG THERAPY Diagnosis 03/17/2020 07:34:00 AM [facility] l R35.0 Frequency of micturition FREQUENCY OF MICTURITION Diag nosis 03/17/2020 07:34:00 AM [facility] M54.32 Sciatica, left side SCIATICA, LEFT SIDE Diagnosis 1 02:37:00 PM [facility] M51.34 Other intervertebral disc degeneration, thoracic region OTHER INTERVERTEBRAL DISC DEGENERATION, THORACIC R Diagnosis 0 02:06:00 PM [facility] M54.31 Sciatica, right side SCIATICA, RIGHT SIDE Diagnosis 03/02/2020 02:06:00 PM [facility] M25.559 Pain in unspecified hip PAIN IN UNSPECIFIED HIP Diagno sis 03/02/2020 02:06:00 PM [facility] E66.09 Other obesity due to excess calories OTH ER OBESITY DUE TO EXCESS CALORIES Diagnosis 02/27/2020 12:43:00 PM [facility] N40.0 Benign prostatic hyperplasia without low er urinary tract symptoms BENIGN PROSTATIC HYPERPLASIA WITHOUT LOWER URINRY Diagnosis 02/27/2020 12:43: 00 PM [facility] M25.552 Pain in left hip PAIN IN LEFT HIP Diagnosis 02/27/2020 12 :43:00 PM [facility] M25.551 Pain in right hip PAIN IN RIGHT HIP Diagnosis 02/26 12:43:00 PM [facility] Z13.220 Encounter for screening for lipoid disor ders ENCOUNTER FOR SCREENING FOR LIPOID DISOR Diagnosis 02/27/2020 12:43:00 PM [facility] N30.00 Acute cystitis without hematuria ACUTE CYSTITIS WITHOUT HEMATURIA Diagnosis 02/27/2020 12:43:00 PM [facility] Z87.440 Personal history of urinary (tract) infe ctions PERSONAL HISTORY OF URINARY (TRACT) INFECTIONS Diagnosis 02/23/2020 05:42:00 AM [facility] N40.1 Benign prostatic hyperplasia with lower urinary tract symptoms BENIGN PROSTATIC HYPERPLASIA WITH LOWER URINARY TR Diagnosis 02/23/2020 05:42:00 AM [facility] F41.9 Anxiety disorder, unspecified ANXIETY DISORDER, UNSPEC IFIED Diagnosis 02/06/2020 11:40:00 AM [facility] R30.0 Dysuria DYSURIA Diagnosis 02/05/2020 08:30:00 PM [facility] Z53.21 Procedure and treatment not carried out due to patient leaving prior to being seen by health care provider PROC/TRTMT NOT CRD OUT D/T PT LV BEF SEE N BY [facility] PROV Diagnosis 12/16/2019 11:22:00 AM [facility] R63.4 Abnormal weight loss ABNORMAL WEIGHT LOSS Diagnosis 09/06/2019 02:18:00 PM [facility] Results ID Date Data Source [id number] 03/17/2020 09:18:00 AM [facility] Patient: NAVEED NAVARRO Observation Report - [facility]VisitID: [id number] [place] [address] [id number], MRegistration Date/Time: 03/17/2020 06:49 Weight:113.3 kg (S). Height/Length:72 inches (S). BMI:33.9 FAMILY HISTORYNo significant family medical history. (Electronically signed by Liborio Diane 03/17/2020 08:50) Name Value Range Interpretation Code Description Data Stephanie rce(s) Supporting Document(s) ID Date Data Source [id number] 03/17/2020 08:41:00 AM EDT [facility] Name Value Range Interpretation Code Description Data Stephanie rce(s) Supporting Document(s) PSA SCREENING 3.3 ng/mL 0.0-4.0 [facility] THIS ASSAY WAS PERFORMED ON THE [employer] EXL USINGTHE B- GALACTOSIDASE/CRPG METHODOLOGY. THE PSA IS NOT AN ABSOLUTE TEST FOR MALIGNANCY. IT SHOULD BEUSED IN CONJUNCTION WITH INFORMATION AVAILABLE FROM THECLINICAL EVALUATION AND OTHER DIAGNOSTIC PROCEDURES. VALUES OBTAINED WITH DIFFERENT ASSAY METHODS CANNOT BE USEDINTERCHANGEABLY. ID Date Data Source [id number] 03/17/2020 08:25:00 AM [facility] Name Value Range Interpretation Code Description Data [facility] rce(s) Supporting Document(s) GLUCOSE 109 mg/dL 74-106 H [facility] BLOOD UREA NITROGEN 15 mg/dL 7-18 [facility] ital CREATININE 1.3 mg/dL 0.7-1.3 [facility] SODIUM 138 mmol/L 136-145 [facility] POTASSIUM 4.4 mmol/L 3.5-5.1 [facility] CHLORIDE 102 mmol/L 98-107 [facility] CO2 31 mmol/L 21-32 [facility] CALCIUM 9.1 mg/dL 8.5-10.1 [facility] ANION GAP 5.0 mmol/L 5-12 [facility] GLOMERULAR FILTRATION RATE 59 mL/min [facility] GFR IS CALCULATED IN mL/min/1.73m2 NEIL L FUNCTION: >90MILDLY DECREASED: 60-89MILDY TO MODERATELY DECREASED: 45-59 MODERATELY TO SEVERELY DECREASED: 30-44SEVERELY DECREASED: 15-29RENAL FAILURE: <15 ID Date Data Source [id number] 03/17/2020 08:08:00 AM EDT [facility] Name Value Range Interpretation Code Description Data Stephanie rce(s) Supporting Document(s) WHITE BLOOD COUNT 7.5 K/mm3 4.0-10.0 [facility]LO[facility] 5.52 M/mm3 4.50-6.00 [facility] HEMOGLOBIN 16.2 gm/dL 14.0-18.0 [facility] HEMATOCRIT 48.5 % 42.0-54.0 [facility] MEAN CELL VOLUME 87.9 fl 80-96 [facility] MEAN CORPUSCULAR HEMOGLOBIN 29.3 pg 27.0-31.0 [facility] MEAN CORPUSCULAR HGB CONC 33.4 g/dl 32.0-36.0 [facility] RED CELL DISTRIBUTION WIDTH 13.1 % 10.0-14.5 [facility] PLATELET COUNT 200 K/mm3 172-450 [facility] MEAN PLATELET VOLUME 11.1 fl 9.0-13.0 [facility] pital GRAN % 55.2 % 50-80.0 [facility] IG% 0.1 % 0.0-0.2 [facility] LYMPH % 33.1 % 25.0-50.0 [facility] MONO % 8.2 % 2.0-10.0 [facility] EOS % 2.9 % 0-5.0 [facility] BASO % 0.5 % 0.0-2.0 [facility] GRAN # 4.1 K/mm3 2.0-8.00 [facility] IG# 0.0 K/mm3 0.0-0.2 [facility] LYMPH # 2.5 K/mm3 1.0-5.0 [facility] MONO # 0.6 K/mm3 0.10-1.20 [facility] EOS # 0.2 K/mm3 0.0-0.5 [facility] BASO # 0.0 K/mm3 0.0-0.2 [facility] ID Date Data Source [id number] 03/17/2020 07:29:00 AM EDT [facility]SYS[facility] [id number] Name Value Range Interpretation Code Description Data Stephanie rce(s) Supporting Document(s) URINE RBC 3-5 /hpf 0-3 H [facility] URINE WBC 1-3 /hpf 0-5 [facility] URINE EPITHELIAL CELLS NONE SEEN /hpf 0 [facility] URINE BACTERIA TRACE NONE SEEN H [facility] URINE MUCUS 2+ NEGATIVE [facility] ID Date Data Source [id number] 03/17/2020 07:23:00 AM EDT [facility] ital TSYSORDER [id number] Name Value Range Interpretation Code Description Data Stephanie rce(s) Supporting Document(s) URINE COLOR. [facility] URINE APPEARANCE CLEAR [facility] l URINE GLUCOSE (UA) NEGATIVE mg/dL NEGATIVE [facility] URINE BILIRUBIN NEGATIVE NEGATIVE [facility] URINE KETONE NEGATIVE mg/dL NEGATIVE [facility] SPECIFIC GRAVITY,URINE >1.030 1.001-1.035 [facility] URINE BLOOD TRACE NEGATIVE [facility] 03/17/20 0723: BLOOD previously reporte d as: TRACE PH,URINE 6.0 5.0-9.0 [facility] URINE PROTEIN NEGATIVE mg/dL NEGATIVE [facility] URINE UROBILINOGEN NORMAL(0.2-1) mg/dL 0-1 R [facility] URINE NITRATE NEGATIVE NEGATIVE [facility] URINE LEUKOCYTE ESTERASE NEGATIVE NEGATIVE [facility] ID Date Data Source [id number] 03/02/2020 03:12:00 PM EDT [facility] l Left Hip DATE OF EXAMINATION: 0 [...] rce(s) Supporting Document(s) ID Date Data Source [id number] 03/02/2020 03:11:00 PM EDT [facility] l Right Hip DATE OF EXAMINATION: 03/02/20 [...] rce(s) Supporting Document(s) ID Date Data Source [id number] 03/02/2020 03:11:00 PM EDT [facility] DATE OF EXAMINATION: [...] Name Value Range Interpretation Code Description Data [facility] rce(s) Supporting Document(s) ID Date Data Source [id number] 02/27/2020 02:25:00 PM EDT [facility] Name Value Range Interpretation Code Description Data [facility](s) Supporting Document(s) CHOLESTEROL 204 mg/dL 0-200 H [facility] TRIGLYCERIDES 172 mg/dL 0-150 H [facility] LDL CHOLESTEROL 134 mg/dL 0-100 H [facility] HDL CHOLESTEROL 36 mg/dL 40-60 L [facility] CHOL/HDL RATIO 5.7 0.0-5.0 H [facility] ID Date Data Source [id number] 02/27/2020 02:25:00 PM T [facility] Name Value Range Interpretation Code Description Data [facility](s) Supporting Document(s) GLUCOSE 102 mg/dL 74-106 [facility] BLOOD UREA NITROGEN 16 mg/dL 7-18 [facility] CREATININE 1.4 mg/dL 0.7-1.3 H [facility] SODIUM 140 mmol/L 136-145 [facility] POTASSIUM 4.7 mmol/L 3.5-5.1 [facility] CHLORIDE 103 mmol/L 98-107 [facility] CO2 30 mmol/L 21-32 [facility] CALCIUM 9.5 mg/dL 8.5-10.1 [facility] ANION GAP 7.0 mmol/L 5-12 [facility] GLOMERULAR FILTRATION RATE 54 mL/min [facility] GFR IS CALCULATED IN mL/min/1.73m2 NEIL L FUNCTION: >90MILDLY DECREASED: 60-89MILDY TO MODERATELY DECREASED: 45-59 MODERATELY TO SEVERELY DECREASED: 30-44SEVERELY DECREASED: 15-29RENAL FAILURE: <15 AST 19 U/L 15-37 [facility] ALT 43 U/L 12-78 [facility] ALKALINE PHOSPHATASE 80 U/L 46-116 [facility] TOTAL BILIRUBIN 1.0 mg/dL 0.2-1.0 [facility] TOTAL PROTEIN 8.0 g/dl 6.4-8.2 [facility] ALBUMIN 4.3 gm/dL 3.4-5.0 [facility] ID Date Data Source LIPID PROFILE 02/27/2020 04:21:20 AM EDT eCW1 ([facility]) Name Value Range Interpretation Code Description Data Stephanie rce(s) Supporting Document(s) 121 0-100 LDL CHOLESTEROL eCW1 ([facility]) 204 CHOLESTEROL eCW1 ([facility][note 3]) Cholesterol in LDL [Mass/volume] in Serum or Plasma by calculation 134 LDL CHOLESTEROL eCW1 ([facility]) 36 HDL CHOLESTEROL eCW1 ([facility]) 172 TRIGLYCERIDES eCW1 ([facility]) 5.7 CHOL/HDL RATIO eCW1 ([facility]) ID Date Data Source [id number] 02/23/2020 07:15:00 AM EDT [facility] Patient: NAVEED NAVARRO Observation Report - [facility].VisitID: [id number] [place] [address] [phone], MRegistration Date/Time: 02/23/2020 05:06 Weight:112 kg (S). [...] rce(s) Supporting Document(s) ID Date Data Source [id number] 02/23/2020 05:23:00 AM EDT [facility] TSYSORDER [id number] Name Value Range Interpretation Code Description Data [facility] rce(s) Supporting Document(s) URINE COLOR. [facility] URINE APPEARANCE CLEAR [facility] SPECIFIC GRAVITY,URINE 1.020 1.001-1.035 [facility] URINE LEUKOCYTE ESTERASE NEGATIVE NEGATIVE [facility] URINE NITRATE NEGATIVE NEGATIVE [facility] PH,URINE 6.5 5.0-9.0 [facility] URINE PROTEIN NEGATIVE mg/dL NEGATIVE [facility] URINE GLUCOSE (UA) NEGATIVE mg/dL NEGATIVE [facility] URINE KETONE NEGATIVE mg/dL NEGATIVE [facility] URINE UROBILINOGEN NORMAL(0.2-1) mg/dL 0-1 R [facility] URINE BILIRUBIN NEGATIVE NEGATIVE [facility] URINE BLOOD NEGATIVE NEGATIVE [facility] ID Date Data Source [id number] 02/06/2020 07:39:00 AM EDT [facility] Patient: NAVEED NAVARRO Observation Report - [facility].VisitID: [id number] [place] [address] [phone], MRegistration Date/Time: 02/05/2020 19:32 Weight:112 kg (S). [...] rce(s) Supporting Document(s) ID Date Data Source [id number] 02/08/2020 11:24:00 AM EDT [facility] Name Value Range Interpretation Code Description Data Stephanie rce(s) Supporting Document(s) ORGANISM [facility] COLONY COUNT N [facility] ID Date Data Source [id number] 02/08/2020 06:05:00 AM EDT [facility] Name Value Range Interpretation Code Description Data Stephanie rce(s) Supporting Document(s) CHLAMYDIA TRACHOMATIS, MARISELA Negative Negative [facility] NEISSERIA GONORRHOEAE, MARISELA Negative Negative [facility] Performed at: RN - [facility] [place] [id number] Director: Sarah Roth MD, Phone: [phone] ID Date Data Source [id number] 02/08/2020 06:05:00 AM EDT [facility] Name Value Range Interpretation Code Description Data Stephanie rce(s) Supporting Document(s) Chlamydia/GC [facility] TESTS RESULT FLAG UNI TS REF RANGE LAB C trachomatis, MARISELA Negative (Negative) 01N gonorrhoeae, MARISELA Negative (Negative) 01 FLAG LEGEND: L-Low Normal,H-High Normal,LL-Alert Low,HH-Alert High <-Panic Low,>-Panic High,A-Abnormal,AA-Critical Abnormal Performed at:01 RN [facility] [address] [address] Sarah Roth MD, ID Date Data Source [id number] 02/05/2020 08:15:00 PM EDT [facility] T[facility] [id number] Name Value Range Interpretation Code Description Data Stephanie rce(s) Supporting Document(s) URINE RBC 5-10 /hpf 0-3 H [facility] URINE WBC 5-10 /hpf 0-5 H [facility] URINE EPITHELIAL CELLS 2+ /hpf 0 [facility] ospital URINE BACTERIA 3+ NONE SEEN [facility] CULTURE ADDED TO SAMPLE. ID Date Data Source [id number] 02/05/2020 08:11:00 PM EDT [facility] TSYSORDER [id number] Name Value Range Interpretation Code Description Data Stephanie rce(s) Supporting Document(s) URINE COLOR. YELLOW [facility] URINE APPEARANCE SLIGHTY CLOUDY [facility] SPECIFIC GRAVITY,URINE 1.015 1.001-1.035 [facility] URINE LEUKOCYTE ESTERASE 1+(SMALL) NEGATIVE [facility] URINE NITRATE NEGATIVE NEGATIVE [facility] PH,URINE 5.5 5.0-9.0 [facility] URINE PROTEIN TRACE mg/dL NEGATIVE [facility] URINE GLUCOSE (UA) NEGATIVE mg/dL NEGATIVE [facility] URINE KETONE NEGATIVE mg/dL NEGATIVE [facility] URINE UROBILINOGEN NORMAL(0.2-1) mg/dL 0-1 [facility] URINE BILIRUBIN NEGATIVE NEGATIVE [facility] URINE BLOOD 2+(MODERATE) NEGATIVE [facility] Procedure Vital Signs ID Date Data Source UNK Name Value Range Interpretation Code Description Data Source(s) Respiratory rate 18 /min 18 /min eCW1 ([facility]) Heart rate 66 /min 66 /min eCW1 ([facility]) Body mass index (BMI) [Ratio] 42.82 kg/m2 42.82 kg/m2 eCW1 ([facility]) Body weight 290 [lb_av] 290 [lb_av] eCW1 ([facility]) Body height 69 [in_i] 69 [in_i] eCW1 ([facility]) ID Date Data Source [id number] 04/10/2020 11:13:00 AM EST [facility] Name Value Range Interpretation Code Description Data Source(s) WEIGHT 113.39 kilos 113.39 kilos [facility] HEIGHT 182.88 centimeters 182.88 centimeter [facility] WEIGHT 113.39 kilos 113.39 kilos [facility] HEIGHT 182.88 centimeters 182.88 centimeter [facility] ID Date Data Source [id number] 04/10/2020 11:13:00 AM EST [facility] Name Value Range Interpretation Code Description Data Source(s) WEIGHT 117.93 kilos 117.93 kilos [facility] HEIGHT 182.88 centimeters 182.88 centimeter [facility] WEIGHT 117.93 kilos 117.93 kilos [facility] HEIGHT 182.88 centimeters 182.88 centimeter [facility] Patient Treatment Plan of Care Planned Activity [...]
[2020-06-22 10:43] VITALS: BP 140/65
== END 2020-06-22 10:40 | disposition home or self-care (01) ==
LOC: M ED 08:53
DX: R39.11 Hesitancy of micturition (principal); F33.9 Major depressive disorder, recurrent, unspecified; F41.9 Anxiety disorder, unspecified; Z79.899 Other long term (current) drug therapy

== ENCOUNTER 2020-06-26 16:47 | Emergency (ER) | payer OTHER ==
--- OUTSIDE RECORDS SUMMARY | 2020-06-26 16:53 | CCD ---
Author Author [facility] Organization [facility] Address Unknown Phone Unavailable Care Team Providers Care Food Service Manager Name Role Phone Gema Macias Unavailable PROBLEMS Type Condition ICD9-CM Code [id number] Code Onset Dates Condition S tatus W/U Status Risk SNOMED Code Notes Problem Morbid (severe) obesity due to excess calories E66 .01 Active confirmed 459579806 Problem Encounter for immunization Z23 Active confirmed 574108684 Problem Allergic rhinitis J30.9 Active confirmed 61 043001 Problem Weight loss R63.4 Active confirmed 35570419 Problem Vaccine counseling Z71.89 Active confirmed 3 49875925 Problem Hyperlipidemia E78.5 Active confirmed 90586 004 Problem Panic disorder without agoraphobia F41.0 Activ e confirmed 85920469 Problem Post-traumatic stress disorder F43.10 Active confir med 29657294 Problem Body mass index (BMI) 45.0-49.9, adult Z68.42 A ctive confirmed 905660613 Problem Panic F41.0 Active confirmed 69264238 Problem BMI 40.0-44.9, adult Z68.41 Active confirmed 747045538 Problem Sciatica, left side M54.32 Active confirmed 97624936 Problem Anxiety disorder, unspecified F41.9 Active confirm ed 237104865 Problem Sciatica, right side M54.31 Active confirmed 15194377901599860 Problem Borderline personality disorder F60.3 Active confi rmed 11006439 Problem Other and unspecified hyperlipidemia 272.4 Act [place] confirmed 15106357 Problem Gastro-esophageal reflux disease without esophagitis K21.9 Active confirmed 799982858 Problem Adjustment disorder with mixed anxiety and depressed mood F43.23 Active confirmed 660694886 r/t pandemic Problem Class 2 obesity due to exces s calories without serious comorbidity in adult, unspecified BMI E66.09 Active confirmed 0492582 01 Problem Benign prostatic hyperplasia , unspecified whether lower urinary tract symptoms present N40.0 Active confirmed 840220545 ALLERGIES No Known Allergies ENCOUNTERS from 1972 to 2020-06-22 Encounter Location Date Provider Diagnosis [address] [address] Jun, Gema Macias Benign prostatic hyperplasia , unspecified whether lower urinary tract symptoms present N40.0 IMMUNIZATIONS Vaccine Route Administration Date Status INFLUENZA [...] Notes Start Da te End Date Status Propranolol HCl 20 MG 1 tablet Orally tid Nov, Active physical therapy eval and tx - - - -3x per week for -6 weeks Feb, Active HydrOXYzine HCl 25 MG 2 Orally every 8 hrs Jun, Active Lipitor 20 MG 1 tablet Orally Once a day for 90 days 2019 Active Lorazepam 0.5 MG 1 Orally Once a day for 5 days May, Active Seroquel 100 MG ii tablet Orally HS Active Albuterol Sulfate HFA 108 (90 Base) MCG/ACT 2 puffs as needed Inhalation every 4 hrs for 17 Active Flomax 0.4 MG 1 capsule Orally Once a day for 90 day(s) Feb, Active Zoloft 100 MG TAKE ONE TABLET BY MOUTH EVERY DAY Orally Once a day Active Pantoprazole Sodium 40 MG 1 tablet Orally Once a day for 30 days Active [place] Carbonate 300 MG TAKE ONE TABLET BY MOUTH IN THE EVENING Or ally qd Active Halcion 0.25 MG 1 tablet Orally qhs prn only Jul, Active physical therapy eval and tx - - - -3x per week for -6 weeks Feb, Active Saphris 10 MG 1 tablet under the tongue an d allow to dissolve Sublingual Twice a day Active PROCEDURES No Information RESULTS No Results REASON FOR VISIT Rx refill MEDICAL (GENERAL) HISTORY Type Description Date Medical History GERD Medical History Anxiety Medical History Obesity Medical History Allergic rhinitis Surgical History Laparscopic Cholecystectomy 04/05/12 Hospitalization History Chest pain Goals Section No Information Health Concerns No Information MEDICAL EQUIPMENT No Information MENTAL STATUS No Information FUNCTIONAL STATUS No Information ASSESSMENTS Encounter Date Diagnosis Assessment Notes Treatment Notes Treatm ent Clinical Notes Jun, Benign prostatic hyperplasia , unspecified whether lower urinary tract symptoms present (ICD-10 - N40.0) PLAN OF TREATMENT Medication Medication Name Sig Start Date Stop Date Flomax 0.4 MG 1 capsule Orally Once a day for 90 day(s) Feb Lorazepam 0.5 MG 1 Orally Once a day for 5 days May, Next Appt Details Provider Name:Gema Houser, 2020-06-22 5 01:20:00 PM, [address] [place], [address], Provider Name:Pinky Lawler, 07-08 11:40:00 AM, [address] [place], [address], Insurance Providers Payer Name Payer Address Payer Phone Insured Name Patient Relati onship to Insured Coverage Start Date Coverage End Date [employer] - [employer] [address] [facility] [address] Mathew Delgado
--- OUTSIDE RECORDS SUMMARY | 2020-06-26 16:54 | CCD ---
Author Author [facility] Organization [facility] Address Unknown Phone Unavailable Care Team Providers Care X Ray Tech Name Role Phone SYMENOW, G CHRISTOPHER PA [...] RODOLFO CUCO PA Unavailable Unavailable GERMAIN, RODOLFO UCCO PA Unavailable Unavailable GERMAIN, RODOLFO CUCO PA Unavailable Unavailable MERLE DE LA GARZA MD Unavailable Unavailable MERLE DEL A GARZA MD Unavailable Unavailable MERLE DE LA [...] Unavailable Unavailable BEATRIZ VALE MD Unavailable Unavailable AVITIAKEENAN HOLLEYNDA [employer]ING [employer] SALES MANAGER-C, MSN Unavailable Unavailab le AVITIAKEENAN JOE [employer] SALES MANAGER-C, MSN Unavailable Unavailab le AVITIAKEENAN JOE [employer] SALES MANAGER-C, MSN Unavailable Unavailab le AVITIA, KEENAN JOE [employer] SALES MANAGER-C, MSN Unavailable Unavailab le AVITIA, KEENAN JOE [employer]ING GOODS SALES MANAGER-C, MSN Unavailable Unavailab le AVITIA, KEENAN JOE SPORTING GOODS SALES MANAGER-C, MSN Unavailable Unavailab le AVITIA, KEENAN JOE [employer]ING [employer] SALES MANAGER-C, MSN Unavailable Unavailab le AVITIA, KEENAN JOE SP[employer]ING GOODS SALES MANAGER-C, MSN Unavailable Unavailab le AVITIA, KEENAN JOE [employer]ING GOODS SALES MANAGER-C, MSN Unavailable Unavailab le AVITIA, KEENAN JOE [employer]ING [employer] SALES MANAGER-C, MSN Unavailable Unavailab le AVITIA, KEENAN JOE [employer]ING [employer] SALES MANAGER-C, MSN Unavailable Unavailab le AVITIA, KEENAN JOE [employer]ING [employer] SALES MANAGER-C, MSN Unavailable Unavailab le AVITIA, KEENAN JOE [employer]ING [employer] SALES MANAGER-C, MSN Unavailable Unavailab le AVITIA, KEENAN JOE SP[employer]ING [employer] SALES MANAGER-C, MSN Unavailable Unavailab le AVITIA, KEENAN JOE [employer]ING [employer] SALES MANAGER-C, MSN Unavailable Unavailab le AVITIA, KEENAN JOE SPORTING [employer] SALES MANAGER-C, MSN Unavailable Unavailab le AVITIA, KEENAN JOE SP[employer]ING GOODS SALES MANAGER-C, MSN Unavailable Unavailab le AVITIA, KEENAN JOE SPORTING [employer] SALES MANAGER-C, MSN Unavailable Unavailab le AVITIA, KEENAN JOE SP[employer]ING [employer] SALES MANAGER-C, MSN Unavailable Unavailab le AVITIA, KEENAN JOE SP[employer]ING [employer] SALES MANAGER-C, MSN Unavailable Unavailab le AVITIA, KEENAN JOE SP[employer]ING GOODS SALES MANAGER-C, MSN Unavailable Unavailab le AVITIA, KEENAN JOE SPORTING GOODS SALES MANAGER-C, MSN Unavailable Unavailab le AVITIA, KEENAN JOE SP[employer]ING GOODS SALES MANAGER-C, MSN Unavailable Unavailab le AVITIA, KEENAN JOE SP[employer]ING [employer] SALES MANAGER-C, MSN Unavailable Unavailab le AVITIA, KEENAN JOE SP[employer]ING GOODS SALES MANAGER-C, MSN Unavailable Unavailab le AVITIA, KEENAN JOE SP[employer]ING [employer] SALES MANAGER-C, MSN Unavailable Unavailab le AVITIA, KEENAN JOE SPORTING GOODS SALES MANAGER-C, MSN Unavailable Unavailab le AVITIA, KEENAN JOE SP[employer]ING [employer] SALES MANAGER-C, MSN Unavailable Unavailab le AVITIA, KEENAN JOE SP[employer]ING GOODS SALES MANAGER-C, MSN Unavailable Unavailab le AVITIA, KEENAN JOE SP[employer]ING GOODS SALES MANAGER-C, MSN Unavailable Unavailab le AVITIA, KEENAN JOE SP[employer]ING GOODS SALES MANAGER-C, MSN Unavailable Unavailab le AVITIA, KEENAN JOE SP[employer]ING [employer] SALES MANAGER-C, MSN Unavailable Unavailab le AVITIA, KEENAN JOE SPORTING GOODS SALES MANAGER-C, MSN Unavailable Unavailab le AVITIA, KEENAN JOE SP[employer]ING GOODS SALES MANAGER-C, MSN Unavailable Unavailab le AVITIA, KEENAN JOE SPORTING GOODS SALES MANAGER-C, MSN Unavailable Unavailab le AVITIA, KEENAN JOE SP[employer]ING GOODS SALES MANAGER-C, MSN Unavailable Unavailab le AVITIA, KEENAN JOE SP[employer]ING [employer] SALES MANAGER-C, MSN Unavailable Unavailab le AVITIA, KEENAN CALLEA [employer]ING [employer] SALES MANAGER-C, MSN Unavailable Unavailab le AVITIA, KEENAN CALLEA [employer]ING [employer] SALES MANAGER-C, MSN Unavailable Unavailab le AVITIA, KEENAN CALLEA [employer]ING [employer] SALES MANAGER-C, MSN Unavailable Unavailab le AVITIA, KEENAN CALLEA SP[employer]ING [employer] SALES MANAGER-C, MSN Unavailable Unavailab le AVITIA, KEENAN CALLEA [employer]ING [employer] SALES MANAGER-C, MSN Unavailable Unavailab le AVITIA, KEENAN CALLEA [employer]ING [employer] SALES MANAGER-C, MSN Unavailable Unavailab le SONJA, JORGE EWA PA-C Unavailable Unavailable SONJA, JORGE EAW PA-C Unavailable Unavailable SONJA, JORGE EWA PA-C Unavailable Unavailable SONJA, JORGE EWA PA-C Unavailable Unavailable SONJA, JORGE EWA PA-C Unavailable Unavailable SONJA, JORGE EWA PA-C Unavailable Unavailable SONJA, JORGE EWA PA-C Unavailable Unavailable SONJA, JORGE EWA PA-C Unavailable Unavailable SONJA, JORGE EWA PA-C Unavailable [facility] Unavailable Unavailable DESJARLAIS, ASHLEIGH LEAD MOBILE DEVELOPER Unavailable Unavailable DESJARLAIS, ASHLEIGH LEAD MOBILE DEVELOPER Unavailable Unavailable DESJARLAIS, ASHLEIGH LEAD MOBILE DEVELOPER Unavailable Unavailable DESJARLAIS, ASHLEIGH LEAD MOBILE DEVELOPER Unavailable Unavailable DESJARLAIS, ASHLEIGH LEAD MOBILE DEVELOPER Unavailable Unavailable DESJARLAIS, ASHLEIGH LEAD MOBILE DEVELOPER Unavailable Unavailable DESJARLAIS, ASHLEIGH LEAD MOBILE DEVELOPER Unavailable Unavailable DESJARLAIS, ASHLEIGH LEAD MOBILE DEVELOPER Unavailable Unavailable DESJARLAIS, ASHLEIGH LEAD MOBILE DEVELOPER Unavailable Unavailable Rydberg, Loreta PA Unavailable Unavailable [...] Unavailable Unavailable Rydberg, Loreta PA Unavailable Unavailable RydbergLoreta PA Unavailable Unavailable Rydberg, Loreta PA Unavailable [...] is protected by Article 27-F of the [facility] Public Health law. If you continue you may have access to information: Regarding HIV / AIDS; Provided by facilities licensed or operated by the [facility] Office of Mental Health; or Provided by the [facility] Office for People With Developmental Disabilities. If such information is present, then the following [facility] mandated warning applies: This information has been [...] MDX - Nka - No Known [facility] Encounters Encounter Providers Location Date Indications Data Source(s ) Outpatient [facility] 06/22/2020 12:00:00 AM EST eCW1 ([facility]) Outpatient Attender: ASHLEIGH MATSON NP 06/12/2020 11: 33:00 AM [facility] Outpatient Attender: ASHLEIGH MATSON LEAD MOBILE DEVELOPER 05/12/2020 01: 20:00 PM [facility] Outpatient [facility] 04/30/2020 12:00:00 AM EST eCW1 ([facility]) Outpatient Attender: ASHLEIGH MATSON NP 04/21/2020 09: 22:00 AM [facility] Outpatient Attender: ASHLEIGH MATSON NP 04/09/2020 11: 40:00 AM [facility] Outpatient Attender: ASHLEIGH MATSON NP 03/24/2020 10: 00:00 AM [facility] Outpatient Attender: ABIGAIL COLIN SR 03/22/2020 10:36:00 AM [facility] Emergency Attender: ANTONIO MCKEONeferrer: BIJU COLIN SR EMERGENCY ROOM-ER 03/17/2020 07:34:00 AM EDT - 03/17/2020 08:51:00 AM [facility] Patient discharged. Outpatient Attender: ASHLEIGH MATSON NP 03/10/2020 11: 40:00 AM [facility] Outpatient Attender: ABIGAIL COLIN SR 03/02 02:58:00 PM EDT - 03/18/2020 10:36:00 AM [facility] Patient discharged. Outpatient Attender: ABIGAIL COLIN SRReferrer: ABIGAIL Douglas SR 03/02/2020 02:06:00 PM EDT - 03/02/2020 02:06:00 PM [facility] Outpatient Attender: ABIGAIL COLIN SRReferrer: JOHN SALGUERO EMERG[facility]Y RO[facility] 02/27/2020 12:43:00 PM EDT - 02/27/2020 12:43:00 PM [facility] Outpatient [facility] 02/27/2020 12:00:00 AM EDT eCW1 ([facility]) Emergency Attender: CUCO De La Rosaerrer: JOHN WOODS EMERGENCY ROOM-ER 02/23/2020 05:42:00 AM EDT - 02/23/2020 06:05:00 AM [facility] Patient discharged. Outpatient Attender: ASHLEIGH MATSON NP 02/20/2020 11: 40:00 AM [facility] Outpatient Attender: ASHLEIGH CHARLESRLAIS LEAD MOBILE DEVELOPER 02/06/2020 11: 40:00 AM [facility] Emergency Attender: RICKY ROBERTO ttender: VARUN GARCIA PAReferrer: JOE ROE, MSN EMERGENCY ROOM-ER 02/05/2020 08:30:00 PM EDT - 02/05/2020 08:58:00 PM [facility] Patient discharged. Outpatient Attender: VARUN GARCIA PAConsultant: [id number] 02/05/2020 07:55:00 PM [facility] Outpatient Attender: ASHLEIGH CHARLESRCARLOS LEAD MOBILE DEVELOPER 01/22/2020 11: 40:00 AM [facility] Outpatient Attender: ASHLEIGH CHARLESRREIIS LEAD MOBILE DEVELOPER 01/08/2020 11: 40:00 AM [facility] Outpatient Attender: ASHLEIGH CHARLESRREIIS LEAD MOBILE DEVELOPER 12/25/2019 01: 00:00 PM [facility] Outpatient [facility] 12/18/2019 12:00:00 AM [facility] eCW1 ([facility]) Outpatient Attender: EWA CASILLAS PA-C 12/16/2019 11:22:00 AM [facility] Outpatient Attender: ASHLEIGH CHARLESRCARLOS LEAD MOBILE DEVELOPER 12/10/2019 11: 00:00 AM [facility] Outpatient Attender: ASHLEIGH CHARLESRLAIS LEAD MOBILE DEVELOPER 11/19/2019 11: 20:00 AM [facility] Outpatient Attender: Nichelle De [facility] 10/29/2019 07:35:42 PM [facility] Outpatient Attender: Nichelle De [facility] 10/19/2019 12:10:22 AM [facility] Outpatient Attender: ASHLEIGH ANNMARIEJARLAIS LEAD MOBILE DEVELOPER 10/18/2019 01: 00:00 PM [facility] Outpatient Attender: ASHLEIGH ANNMARIEJARLAIS LEAD MOBILE DEVELOPER 09/20/2019 11: 00:00 AM [facility] Outpatient Attender: ASHLEIGH ANNMARIEJARLAIS LEAD MOBILE DEVELOPER 09/06/2019 02: 18:00 PM [facility] Outpatient Attender: ASHLEIGH ANNMARIEJARLAIS LEAD MOBILE DEVELOPER 08/23/2019 11: 00:00 AM [facility] Outpatient Attender: ASHLEIGH CHARLESRLAIS LEAD MOBILE DEVELOPER 07/30/2019 10: 40:00 AM [facility] Outpatient Attender: ASHLEIGH MATSON NP 06/28/2019 12: 59:00 PM [facility] Outpatient Attender: ASHLEIGH HUYEN LOVE 06/07/2019 10: 34:00 AM [facility] Outpatient Attender: ASHLEIGH MATSON NP 05/03/2019 02: 00:00 PM [facility] Outpatient Attender: ASHLEIGH MATSON LEAD MOBILE DEVELOPER 04/05/2019 01: 59:00 PM [facility] Emergency Attender: ANTONIO VASQUEZ 06/19 12:17:00 PM [facility] - 06/19/2014 12:30:00 PM [facility] Emergency Attender: MERLE DE LA GARZA MD 015 04:15:00 PM [facility] - 06/02/2014 07:15:00 PM [facility] Inpatient Attender: PENG CHIN PAAdmitter: BEATRIZ KINSEY MD 07/11/2013 12:40:00 PM [facility] - 07/12/2013 01:22:00 AM [facility] Emergency Attender: ISRA HAYDEN MD 06:14:00 PM [facility] 04/03/2013 08:39:00 PM [facility] Outpatient Attender: Loreta Miller PAReferrer: Loreta VASQUEZ 09/18/2012 02:32:00 PM [facility] Medications Medication Brand Name Start Date Product Form Dose Route Admi nistrative Instructions Pharmacy Instructions Status Indications Reaction Description Data Source(s) 0.4 mg 06/22/2020 12:00:00 AM EST capsule 90 TAKE ONE CAPSULE BY MOUTH EVERY DAY TAKE ONE CAPSULE BY MOUTH EVERY DAY SOLD: 06/23/2020 [facility] 0.5 mg 06/12/2020 12:00:00 AM EST tablet 5 TAKE ONE TABLET BY MOUTH EVERY DAY MAXIMUM DAILY DOSE = 1 TABLET TAKE ONE TABLET BY MOUTH EVERY DAY MAXIM UM DAILY DOSE = 1 TABLET SOLD: 06/23/2020 [facility] Lorazepam 0.5 MG Oral Tablet Lorazepam 0.5 MG 06/12/2020 12:00:[address] active Lorazepam 0.5 MG eCW1 ([facility]) atorvastatin 20 MG Oral Tablet ATORVASTATIN CALCIUM 02/28/2020 1 2:00:00 AM EDT tablet 90 TAKE ONE TABLET BY MOUTH EVERY D AY TAKE ONE TABLET BY MOUTH EVERY DAY SOLD: 02/29/2020 [facility] atorvastatin 20 MG Oral Tablet ATORVASTATIN CALCIUM 02/28/2020 1 2:00:00 AM EDT tablet 90 TAKE ONE TABLET BY MOUTH EVERY D AY TAKE ONE TABLET BY MOUTH EVERY DAY SOLD: 06/01/2020 [facility] physical therapy eval and tx - UNK 02/27/2020 12:00:00 AM EDT active physical therapy eval and tx - eCW1 ([facility]) physical therapy eval and tx - UNK 02/27/2020 12:00:00 AM EDT active physical therapy eval and tx - eCW1 ([facility]) physical therapy eval and tx - UNK 02/27/2020 12:00:00 AM EDT active physical therapy eval and tx - eCW1 ([facility]) physical therapy eval and tx - UNK 02/27/2020 12:00:00 AM EDT active physical therapy eval and tx - eCW1 ([facility]) atorvastatin 20 MG Oral Tablet [Lipitor] Lipitor 20 MG Lipit or 20 MG 02/27/2020 12:00:00 AM EDT 1.0 {tablet} active Li pitor 20 MG eCW1 ([facility]) physical therapy eval and tx - UNK 02/27/2020 12:00:00 AM EDT active physical therapy eval and tx - eCW1 ([facility]) Tamsulosin hydrochloride 0.4 MG Oral Capsule [Flomax] Flomax 0.4 MG Flomax 0.4 MG 02/27/2020 12:00:00 AM EDT 1.0 {capsule} active Flomax 0.4 MG eCW1 ([facility]) atorvastatin 20 MG Oral Tablet [Lipitor] Lipitor 20 MG Lipit or 20 MG 02/27/2020 12:00:00 AM EDT 1.0 {tablet} active Li pitor 20 MG eCW1 ([facility]) Tamsulosin hydrochloride 0.4 MG Oral Capsule [Flomax] Flomax 0.4 MG Flomax 0.4 MG 02/27/2020 12:00:00 AM EDT 1.0 {capsule} active Flomax 0.4 MG eCW1 ([facility]) physical therapy eval and tx - UNK 02/27/2020 12:00:00 AM EDT active physical therapy eval and tx - eCW1 ([facility]) Tamsulosin hydrochloride 0.4 MG Oral Capsule [Flomax] Flomax 0.4 MG Flomax 0.4 MG 02/27/2020 12:00:00 AM EDT 1.0 {capsule} active Flomax 0.4 MG eCW1 ([facility]) atorvastatin 20 MG Oral Tablet [Lipitor] Lipitor 20 MG Lipit or 20 MG 02/27/2020 12:00:00 AM EDT 1.0 {tablet} active Li pitor 20 MG eCW1 ([facility]) physical therapy eval and tx - UNK 02/27/2020 12:00:00 AM EDT active physical therapy eval and tx - eCW1 ([facility]) 100 mg 02/26/2020 12:00:00 AM EDT tablet [...] ac tive Propranolol HCl 20 MG eCW1 ([facility]) Propranolol Hydrochloride 20 MG Oral Tablet Propranolo l HCl 20 MG Propranolol HCl 20 MG 12/10/2019 12:00:00 AM EDT 1.0 {tablet} ac tive Propranolol HCl [facility] Propranolol Hydrochloride 20 MG Oral Tablet Propranolo l HCl 20 MG Propranolol HCl 20 MG 12/10/2019 12:00:00 AM EDT 1.0 {tablet} ac tive Propranolol HCl 20 MG eCW1 ([facility]) Propranolol Hydrochloride 20 MG Oral Tablet Propranolo l HCl 20 MG Propranolol HCl 20 MG 12/10/2019 12:00:00 AM EDT 1.0 {tablet} ac tive Propranolol HCl 20 MG [facility] 5 mg 12/03/2019 12:00:00 AM EDT [...] MOUTH EVERY 4 HOURS NEEDED SOLD: 08/22/2019 [facility] 90 mcg/actuation 08/20/2019 12:00:00 AM EDT [...] 4 HOURS NEEDED SOLD: 10/01/2019 [facility] 0.25 mg 07/31/2019 12:00:00 AM EDT tablet 15 TAKE ONE TABLET BY MOUTH DAILY AT BEDTIME FOR 15 DAYS MAXIMUM DAILY DOSE = 1 TABLET TAKE ONE TABLET BY MOUTH DAILY AT BEDTIME FOR 15 DAYS MAXIMUM DAILY DOSE = 1 TABLET SOLD: 08/02/2019 [facility] Triazolam 0.25 MG Oral Tablet [Halcion] Halcion 0.25 MG Halc ion 0.25 MG 07/30/2019 12:00:00 AM EDT 1.0 {tablet} active Halcion 0.25 MG eCW1 ([facility]) Triazolam 0.25 MG Oral Tablet [Halcion] Halcion 0.25 MG Halc ion 0.25 MG 07/30/2019 12:00:00 AM EDT 1.0 {tablet} active Halcion 0.25 MG eCW1 ([facility]) Triazolam 0.25 MG Oral Tablet [Halcion] Halcion 0.25 MG Halc ion 0.25 MG 07/30/2019 12:00:00 AM EDT 1.0 {tablet} active Halcion 0.25 MG eCW1 ([facility]) Triazolam 0.25 MG Oral Tablet [Halcion] Halcion 0.25 MG Halc ion 0.25 MG 07/30/2019 12:00:00 AM EDT 1.0 {tablet} active Halcion 0.25 MG eCW1 ([facility]) 40 mg 07/10/2019 12:00:00 AM EST tablet,delayed release (DR/EC) 30 TAKE 1 TABLET BY MOUTH ONCE A DAY TAKE 1 TABLET BY MOUTH ONCE A DAY SOLD: 07/11/2019 [facility] 40 mg 07/10/2019 12:00:00 AM EST [...] EST active HydrOXYzine HCl 25 MG eCW1 ([facility]) Hydroxyzine Hydrochloride 25 MG Oral Tablet HydrOXYzin e HCl 25 MG HydrOXYzine HCl 25 MG 06/28/2019 12:00:00 AM EST active HydrOXYzine HCl 25 MG eCW1 ([facility]) Hydroxyzine Hydrochloride 25 MG Oral Tablet HydrOXYzin e HCl 25 MG HydrOXYzine HCl 25 MG 06/28/2019 12:00:00 AM EST active HydrOXYzine HCl 25 MG eCW1 ([facility]) Hydroxyzine Hydrochloride 25 MG Oral Tablet HydrOXYzin e HCl 25 MG HydrOXYzine HCl 25 MG 06/28/2019 12:00:00 AM EST active HydrOXYzine HCl 25 MG eCW1 ([facility]) 300 mg 06/15/2019 12:00:00 AM EST tablet [...] BY MOUTH ONCE A DAY SOLD: 06/10/2019 [facility] 90 mcg/actuation 05/06/2019 12:00:00 AM EST [...] MOUTH EVERY DAY SOLD: 06/04/2019 [facility] quetiapine 100 MG Oral Tablet QUETIAPINE FUMARATE 03/31/2019 12: 00:00 AM EST tablet 60 TAKE TWO TABLETS BY MOUTH AT BED TIME TAKE TWO TABLETS BY MOUTH AT BEDTIME SOLD: 05/06/2019 [facility] quetiapine 100 MG Oral Tablet QUETIAPINE FUMARATE 03/31/2019 12: 00:00 AM EST tablet 60 TAKE TWO TABLETS BY MOUTH AT BED TIME TAKE TWO TABLETS BY MOUTH AT BEDTIME SOLD: 06/04/2019 [facility] 100 mg 03/31/2019 12:00:00 AM [...] type / Coverage type Policy ID Covered democrat ID Covered democrat's relationship to alan Policy Alan Plan Information [facility] [id number] SP [id number] [facility] [id number] S [id number] [facility] [id number] S [id number] [facility] MED[facility] [id number] S [id number] [facility] MEDICAID [id number] S [id number] [facility] PL [id number] S [id number] MEDICAID [id number] Medicaid P [id number] S [id number] [facility] [id number] S [id number] [facility] MEDICAID [id number] S [id number] ANS-Medicaid [id number] ANSI-Medicaid [id number] ANSI-Commercial [id number] ANSI-Medicaid [id number] UN FB [id number] S [id number] ANS-Medicaid [id number] ANSI-Commercial [id number] [employer] MEDICAID [id number] S [id number] UN FB [id number] S [id number] ANSI-Commercial [id number] ANS-Medicaid [id number] [facility] MEDICAID [facility] [id number] S [id number] [employer] COMMUNITY PLAN [facility] [id number] SP [id number] [id number] [id number] S [id number] [facility](MCAID) O [id number] C [id number] [facility] MEDICAID [facility] [id number] S [id number] [employer] [id number] SP [id number] [employer] [place] [id number] S [id number] BCBS HMO BLUE BC [id number] S [id number] [employer] [id number] SP [id number] [facility] P UNAVAILABLE C UNAVAILABLE SELF PAY UNAVAILABLE UNAVAILA BLE Problems, Conditions, and Diagnoses Code Display Name Description Problem Type Effective Dates Data Source(s) N40.0 [id number] Benign prostatic hyp erplasia, unspecified whether lower urinary tract symptoms present Problem 02/27/2020 12:00:00 AM EDT eCW1 ([facility]) E66.09 [id number] Class 2 obesity due to excess calories without serious comorbidity in adult, unspecified BMI Problem 02/27/2020 12:00:00 AM EDT eCW1 ([facility]) M54.31 [id number] Sciatica, right side Problem 12:00:00 AM EDT eCW1 ([facility]) M54.32 [id number] Sciatica, left side Problem 02/27/2020 12:00 :00 AM EDT eCW1 ([facility]) F43.23 [id number] Adjustment disorder with mixed a nxiety and depressed mood Problem 01/10/2020 12:00:00 AM EDT eC1 ([facility]) F43.23 Adjustment disorder with mixed anxiety a nd depressed mood ADJUSTMENT DISORDER WITH MIXED ANXIETY AND DEPRESS Diagnosis 05/12/2020 01:20:00 PM [facility] F43.10 Post-traumatic stress disorder, unspecif ied POST-TRAUMATIC STRESS DISORDER, UNSPECIFIED Diagnosis 05/12/2020 01:20:00 PM [facility] F41.0 Panic disorder [episodic paroxysmal anxi ety] PANIC DISORDER [EPISODIC PAROXYSMAL ANXIETY] Diagnosis 05/12/2020 01:20:00 PM [facility] l F60.3 Borderline personality disorder BORDERLINE PERSONALITY DISORDER Diagnosis 04/21/2020 09:22:00 AM [facility] F41.8 Other specified anxiety disorders OTHER SPECIFIE D ANXIETY DISORDERS Diagnosis 04/09/2020 11:40:00 AM [facility] Z90.49 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 ACQUIRED ABSENCE OF OTHER SPECIFIED PARTS OF DIGES Diagnosis 03/17/2020 07:34:0 0 AM [facility] 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 [facility] (CURRENT) DRUG THERAPY Diagnosis 03/17/2020 07:34:00 AM [facility] l R35.0 Frequency of micturition FREQUENCY OF MICTURITION Diag nosis 03/17/2020 07:34:00 AM [facility] M54.32 Sciatica, left side SCIATICA, LEFT SIDE Diagnosis 1 02:37:00 PM [facility] M51.34 Other intervertebral disc degeneration, thoracic region OTHER INTERVERTEBRAL DISC DEGENERATION, THORACIC R Diagnosis 0 02:06:00 PM [facility] M54.31 Sciatica, right side SCIATICA, RIGHT SIDE Diagnosis 03/02/2020 02:06:00 PM [facility] M25.559 Pain in unspecified hip PAIN IN UNSPECIFIED HIP Diagno sis 03/02/2020 02:06:00 PM [facility] E66.09 Other obesity due to excess calories OTH ER OBESITY DUE TO EXCESS CALORIES Diagnosis 02/27/2020 12:43:00 PM [facility] N40.0 Benign prostatic hyperplasia without low er urinary tract symptoms BENIGN PROSTATIC HYPERPLASIA WITHOUT LOWER URINRY Diagnosis 02/27/2020 12:43: 00 PM [facility] M25.552 Pain in left hip PAIN IN LEFT HIP Diagnosis 02/27/2020 12 :43:00 PM [facility] M25.551 Pain in right hip PAIN IN RIGHT HIP Diagnosis 02/26 12:43:00 PM [facility] Z13.220 Encounter for screening for lipoid disor ders ENCOUNTER FOR SCREENING FOR LIPOID DISOR Diagnosis 02/27/2020 12:43:00 PM [facility] N30.00 Acute cystitis without hematuria ACUTE CYSTITIS WITHOUT HEMATURIA Diagnosis 02/27/2020 12:43:00 PM [facility] Z87.440 Personal history of urinary (tract) infe ctions PERSONAL HISTORY OF URINARY (TRACT) INFECTIONS Diagnosis 02/23/2020 05:42:00 AM [facility] N40.1 Benign prostatic hyperplasia with lower urinary tract symptoms BENIGN PROSTATIC HYPERPLASIA WITH LOWER URINARY TR Diagnosis 02/23/2020 05:42:00 AM [facility] F41.9 Anxiety disorder, unspecified ANXIETY DISORDER, UNSPEC IFIED Diagnosis 02/06/2020 11:40:00 AM [facility] R30.0 Dysuria DYSURIA Diagnosis 02/05/2020 08:30:00 PM [facility] Z53.21 Procedure and treatment not carried out due to patient leaving prior to being seen by health care provider PROC/TRTMT NOT CRD OUT D/T PT LV BEF SEE [facility] Diagnosis 12/16/2019 11:22:00 AM [facility] R63.4 Abnormal weight loss ABNORMAL WEIGHT LOSS Diagnosis 09/06/2019 02:18:00 PM [facility] Results ID Date Data Source [id number] 03/17/2020 09:18:00 AM [facility] Patient: NAVEED DELGADO Observation Report - [facility].VisitID: [id number] [place] [address] [phone], MRegistration Date/Time: 03/17/2020 06:49 Weight:113.3 kg (S). Height/Length:72 inches (S). BMI:33.9 FAMILY HISTORYNo significant family medical history. (Electronically signed by Liborio Diane 03/17/2020 08:50) Name Value Range Interpretation Code Description Data Stephanie rce(s) Supporting Document(s) ID Date Data Source [id number] 03/17/2020 08:41:00 AM [facility] Name Value Range Interpretation Code Description Data [facility] rce(s) Supporting Document(s) PSA SCREENING 3.3 ng/mL 0.0-4.0 [facility] THIS ASSAY WAS PERFORMED ON THE SIEMENS DIMENSION EXL USINGTHE B- GALACTOSIDASE/CRPG METHODOLOGY. THE PSA IS NOT AN ABSOLUTE TEST FOR MALIGNANCY. IT SHOULD BEUSED IN CONJUNCTION WITH INFORMATION AVAILABLE FROM THECLINICAL EVALUATION AND OTHER DIAGNOSTIC PROCEDURES. VALUES OBTAINED WITH DIFFERENT ASSAY METHODS CANNOT BE USEDINTERCHANGEABLY. ID Date Data Source [id number] 03/17/2020 08:25:00 AM [facility] Name Value Range Interpretation Code Description Data [facility] rce(s) Supporting Document(s) GLUCOSE 109 mg/dL 74-106 H [facility] BLOOD UREA NITROGEN 15 mg/dL 7-18 [facility] ital CREATININE 1.3 mg/dL 0.7-1.3 [facility] SODIUM 138 mmol/L 136-145 [facility] POTASSIUM 4.4 mmol/L 3.5-5.1 [facility] CHLORIDE 102 mmol/L 98-107 [facility] CO2 31 mmol/L 21-32 [facility] CALCIUM 9.1 mg/dL 8.5-10.1 [facility] ANION GAP 5.0 mmol/L 5-12 [facility] GLOMERULAR FILTRATION RATE 59 mL/min [facility] GFR IS CALCULATED IN mL/min/1.73m2 NEIL L FUNCTION: >90MILDLY DECREASED: 60-89MILDY TO MODERATELY DECREASED: 45-59 MODERATELY TO SEVERELY DECREASED: 30-44SEVERELY DECREASED: 15-29RENAL FAILURE: <15 ID Date Data Source [id number] 03/17/2020 08:08:00 AM EDT [facility] Name Value Range Interpretation Code Description Data Stephanie rce(s) Supporting Document(s) WHITE BLOOD COUNT 7.5 K/mm3 4.0-10.[address] [facility] al RED BLOOD COUNT 5.52 M/mm3 4.50-6.00 [facility] HEMOGLOBIN 16.2 gm/dL 14.0-18.0 [facility] HEMATOCRIT 48.5 % 42.0-54.0 [facility] MEAN CELL VOLUME 87.9 fl 80-96 [facility] MEAN CORPUSCULAR HEMOGLOBIN 29.3 pg 27.0-31.0 [facility] MEAN CORPUSCULAR HGB CONC 33.4 g/dl 32.0-36.0 [facility] RED CELL DISTRIBUTION WIDTH 13.1 % 10.0-14.5 [facility] PLATELET COUNT 200 K/mm3 172-450 [facility] MEAN PLATELET VOLUME 11.1 fl 9.0-13.0 [facility] pital GRAN % 55.2 % 50-80.0 [facility] IG% 0.1 % 0.0-0.2 [facility] LYMPH % 33.1 % 25.0-50.0 [facility] MONO % 8.2 % 2.0-10.0 [facility] EOS % 2.9 % 0-5.0 [facility] BASO % 0.5 % 0.0-2.0 [facility] GRAN # 4.1 K/mm3 2.0-8.00 [facility] IG# 0.0 K/mm3 0.0-0.2 [facility] LYMPH # 2.5 K/mm3 1.0-5.0 [facility] MONO # 0.6 K/mm3 0.10-1.20 [facility] EOS # 0.2 K/mm3 0.0-0.5 [facility] BASO # 0.0 K/mm3 0.0-0.2 [facility] ID Date Data Source [id number] 03/17/2020 07:29:00 AM EDT [facility] TSYSORDER [id number] Name Value Range Interpretation Code Description Data Stephanie rce(s) Supporting Document(s) URINE RBC 3-5 /hpf 0-3 [facility] URINE WBC 1-3 /hpf 0-5 [facility] URINE EPITHELIAL CELLS NONE SEEN /hpf 0 [facility] URINE BACTERIA TRACE NONE SEEN [facility] URINE MUCUS 2+ NEGATIVE [facility] ID Date Data Source [id number] 03/17/2020 07:23:00 AM T [facility] ital TSYSORDER [id number] Name Value Range Interpretation Code Description Data Stephanie rce(s) Supporting Document(s) URINE COLOR. [facility] URINE APPEARANCE CLEAR [facility] l URINE GLUCOSE (UA) NEGATIVE mg/dL NEGATIVE [facility] URINE BILIRUBIN NEGATIVE NEGATIVE [facility] URINE KETONE NEGATIVE mg/dL NEGATIVE [facility] al SPECIFIC GRAVITY,URINE >1.030 1.001-1.035 [facility] URINE BLOOD TRACE NEGATIVE [facility] 03/17/20 0723: BLOOD previously reporte d as: TRACE PH,URINE 6.0 5.0-9.0 [facility] URINE PROTEIN NEGATIVE mg/dL NEGATIVE [facility] shannan URINE UROBILINOGEN NORMAL(0.2-1) mg/dL 0-1 [facility] URINE NITRATE NEGATIVE NEGATIVE [facility] URINE LEUKOCYTE ESTERASE NEGATIVE NEGATIVE [facility] ID Date Data Source [id number] 03/02/2020 03:12:00 PM T [facility] Left Hip DATE OF EXAMINATION: 0 14:11 [...] rce(s) Supporting Document(s) ID Date Data Source [id number] 03/02/2020 03:11:00 PM T [facility] Right Hip DATE OF EXAMINATION: 03/02/20 20 [...] rce(s) Supporting Document(s) ID Date Data Source [id number] 03/02/2020 03:11:00 PM EDT [facility] LUMBAR SPINE DATE OF EXAMINATION: 2019 [...] rce(s) Supporting Document(s) ID Date Data Source [id number] 02/27/2020 02:25:00 PM EDT [facility] l Name Value Range Interpretation Code Description Data Stephanie rce(s) Supporting Document(s) CHOLESTEROL 204 mg/dL 0-200 H [facility] TRIGLYCERIDES 172 mg/dL 0-150 H [facility] LDL CHOLESTEROL 134 mg/dL 0-100 H [facility] HDL CHOLESTEROL 36 mg/dL 40-60 L [facility] CHOL/HDL RATIO 5.7 0.0-5.0 H [facility] ID Date Data Source [id number] 02/27/2020 02:25:00 PM EDT [facility] l Name Value Range Interpretation Code Description Data Stephanie rce(s) Supporting Document(s) GLUCOSE 102 mg/dL 74-106 [facility] BLOOD UREA NITROGEN 16 mg/dL 7-18 [facility] ital CREATININE 1.4 mg/dL 0.7-1.3 H [facility] SODIUM 140 mmol/L 136-145 [facility] POTASSIUM 4.7 mmol/L 3.5-5.1 [facility] CHLORIDE 103 mmol/L 98-107 [facility] CO2 30 mmol/L 21-32 [facility] CALCIUM 9.5 mg/dL 8.5-10.1 [facility] ANION GAP 7.0 mmol/L 5-12 [facility] GLOMERULAR FILTRATION RATE 54 mL/min [facility] GFR IS CALCULATED IN mL/min/1.73m2 NEIL L FUNCTION: >90MILDLY DECREASED: 60-89MILDY TO MODERATELY DECREASED: 45-59 MODERATELY TO SEVERELY DECREASED: 30-44SEVERELY DECREASED: 15-29RENAL FAILURE: <15 AST 19 U/L 15-37 [facility] ALT 43 U/L 12-78 [facility] ALKALINE PHOSPHATASE 80 U/L 46-116 [facility] TOTAL BILIRUBIN 1.0 mg/dL 0.2-1.0 [facility] TOTAL PROTEIN 8.0 g/dl 6.4-8.2 [facility] ALBUMIN 4.3 gm/dL 3.4-5.0 [facility] ID Date Data Source [id number] [id number] 02/27/2020 04:21:20 AM EDT eCW1 ([facility]) Name Value Range Interpretation Code Description Data Stephanie rce(s) Supporting Document(s) 121 0-100 LDL CHOLESTEROL eCW1 ([facility]) 204 CHOLESTEROL eCW1 ([facility]) Cholesterol in LDL [Mass/volume] in Serum or Plasma by calculation 134 LDL CHOLESTEROL eCW1 ([facility]) 36 HDL CHOLESTEROL eCW1 ([facility]) 172 TRIGLYCERIDES eCW1 ([facility]) 5.7 CHOL/HDL RATIO eCW1 ([facility]) ID Date Data Source [id number] 02/23/2020 07:15:00 AM EDT [facility] l Patient: RAMON SHU Observation Report - [facility].VisitID: [id number] [place] [address] [phone], MRegistration Date/Time: 02/23/2020 05:06 Weight:112 kg (S). [...] family medical history. (Electronically signed by Cuco Bobby P.A. 02/23/2020 06:48) Name Value Range Interpretation Code Description Data [facility] rce(s) Supporting Document(s) ID Date Data Source [id number] 02/23/2020 05:23:00 AM [facility] ital TSYSORDER [id number] Name Value Range Interpretation Code Description Data [facility] rce(s) Supporting Document(s) URINE COLOR. [facility] URINE APPEARANCE CLEAR [facility] l SPECIFIC GRAVITY,URINE 1.020 1.001-1.035 [facility] URINE LEUKOCYTE ESTERASE NEGATIVE NEGATIVE [facility] URINE NITRATE NEGATIVE NEGATIVE [facility] PH,URINE 6.5 5.0-9.0 [facility] URINE PROTEIN NEGATIVE mg/dL NEGATIVE [facility] URINE GLUCOSE (UA) NEGATIVE mg/dL NEGATIVE [facility] URINE KETONE NEGATIVE mg/dL NEGATIVE [facility] UR[facility] UROBILINOGEN NORMAL(0.2-1) mg/dL 0-1 R [facility] URINE BILIRUBIN NEGATIVE NEGATIVE [facility] URINE BLOOD NEGATIVE NEGATIVE [facility] ID Date Data Source [id number] 02/06/2020 07:39:00 AM T [facility] Patient: RAMONNAVEED MENDOZA J Observation Report - [facility].VisitID: [id number] [place] [address] [phone], MRegistration Date/Time: 02/05/2020 19:32 Weight:112 kg (S). [...] rce(s) Supporting Document(s) ID Date Data Source [id number] 02/08/2020 11:24:00 AM EDT [facility] shannan Name Value Range Interpretation Code Description Data [facility] rce(s) Supporting Document(s) ORGANISM [facility] COLONY COUNT N [facility] ID Date Data Source [id number] 02/08/2020 06:05:00 AM EDT [facility] Name Value Range Interpretation Code Description Data [facility] rce(s) Supporting Document(s) CHLAMYDIA TRACHOMATIS, MARISELA Negative Negative [facility] NEISSERIA GONORRHOEAE, MARISELA Negative Negative [facility] Performed at: RN - [facility] [place] [id number] Director: Sarah Roth MD, Phone: [phone] ID Date Data Source [id number] 02/08/2020 06:05:00 AM EDT [facility] Name Value Range Interpretation Code Description Data [facility] rce(s) Supporting Document(s) Chlamydia/GC Amplification [facility] TESTS RESULT FLAG UNI TS REF RANGE LAB C trachomatis, MARISELA Negative (Negative) 01N gonorrhoeae, MARISELA Negative (Negative) 01 FLAG LEGEND: L-Low Normal,H-High Normal,LL-Alert Low,HH-Alert High <-Panic Low,>-Panic High,A-Abnormal,AA-Critical Abnormal Performed at:01 RN [facility] [address] [id number] Sarah Roth MD, ID Date Data Source [id number] 02/05/2020 08:15:00 PM T [facility] T[facility] [id number] Name Value Range Interpretation Code Description Data Stephanie rce(s) Supporting Document(s) URINE RBC 5-10 /hpf 0-3 H [facility] URINE WBC 5-10 /hpf 0-5 H [facility] URINE EPITHELIAL CELLS 2+ /hpf 0 [facility] ospital URINE BACTERIA 3+ NONE SEEN [facility] CULTURE ADDED TO SAMPLE. ID Date Data Source [id number] 02/05/2020 08:11:00 PM [facility] ital TSYSORDER [id number] Name Value Range Interpretation Code Description Data Stephanie rce(s) Supporting Document(s) URINE COLOR. YELLOW [facility] URINE APPEARANCE SLIGHTY CLOUDY [facility] SPECIFIC GRAVITY,URINE 1.015 1.001-1.035 [facility] URINE LEUKOCYTE ESTERASE 1+(SMALL) NEGATIVE [facility] URINE NITRATE NEGATIVE NEGATIVE [facility] PH,URINE 5.5 5.0-9.0 [facility] URINE PROTEIN TRACE mg/dL NEGATIVE [facility] URINE GLUCOSE (UA) NEGATIVE mg/dL NEGATIVE [facility] URINE KETONE NEGATIVE mg/dL NEGATIVE [facility] URINE UROBILINOGEN NORMAL(0.2-1) mg/dL 0-1 [facility] URINE BILIRUBIN NEGATIVE NEGATIVE [facility] URINE BLOOD 2+(MODERATE) NEGATIVE [facility] Procedure Vital Signs ID Date Data Source UNK Name Value Range Interpretation Code Description Data Source(s) Respiratory rate 18 /min 18 /min eCW1 ([facility]) Heart rate 66 /min 66 /min eCW1 ([facility]) Body mass index (BMI) [Ratio] 42.82 kg/m2 42.82 kg/m2 eCW1 ([facility]) Body weight 290 [lb_av] 290 [lb_av] eCW1 ([facility]) Body height 69 [in_i] 69 [in_i] eCW1 ([facility]) ID Date Data Source [id number] 04/10/2020 11:13:00 AM EST [facility] Name Value Range Interpretation Code Description Data Source(s) WEIGHT 113.39 kilos 113.39 kilos [facility] HEIGHT 182.88 centimeters 182.88 centimeter [facility] WEIGHT 113.39 kilos 113.39 kilos [facility] HEIGHT 182.88 centimeters 182.88 centimeter [facility] ID Date Data Source [id number] 04/10/2020 11:13:00 AM EST [facility] Name Value Range Interpretation Code Description Data Source(s) WEIGHT 117.93 kilos 117.93 kilos [facility] HEIGHT 182.88 centimeters 182.88 centimeter [facility] WEIGHT 117.93 kilos 117.93 kilos [facility] HEIGHT 182.88 centimeters 182.88 centimeter [facility] Patient Treatment Plan of Care Planned Activity Planned Date Details Description Data Source (s) Lorazepam 0.5 MG Oral Tablet 06/12/2020 12:00:00 AM EST eCW1 ([facility]) Tamsulosin hydrochloride 0.4 MG Oral Capsule [Flomax] 02/27/2020 12:00:00 AM EDT eCW1 ([facility]) physical therapy eval and tx - 02/27/2020 12:00:00 AM EDT eCW1 ([facility]) atorvastatin 20 MG Oral Tablet [Lipitor] 02/27/2020 12:00:00 AM EDT eCW1 ([facility]) Tamsulosin hydrochloride 0.4 MG Oral Capsule [Flomax] 02/27/2020 12:00:00 AM EDT eCW1 ([facility]) physical therapy eval and tx - 02/27/2020 12:00:00 AM EDT eCW1 ([facility]) physical therapy eval and tx - 02/27/2020 12:00:00 AM EDT eCW1 ([facility])
[2020-06-26 16:57] VITALS: BP 145/80
[2020-06-26] MEDS ORDERED: FLOM0.4C39 PO (16:58)
== END 2020-06-26 18:04 | disposition left against medical advice (07) ==
LOC: M ED 16:47
DX: Z53.21 Procedure and treatment not carried out due to patient leaving prior to being seen by health care provider (principal)

== ENCOUNTER → 2020-08-13 | Outpatient (REF) | payer OTHER ==
[~2020-08-13] MED LIST changes: +FLOM0.4C39 PO
[2020-08-13 17:51] LABS: APPEARANCE, URINE CLEAR (CLEAR); BACTERIA, URINE AUTO NEGATIVE (NEGATIVE); BILIRUBIN, URINE AUTO NEGATIVE (NEGATIVE); BLOOD, URINE BLOOD 1+ (NEGATIVE); COLOR, URINE YELLOW (YELLOW); GLUCOSE, URINE (UA) AUTO NEGATIVE (NEGATIVE); KETONE, URINE AUTO NEGATIVE (NEGATIVE); LEUKOCYTE ESTERASE, URINE AUTO NEGATIVE (NEGATIVE); NITRITE, URINE AUTO NEGATIVE (NEGATIVE); PROTEIN, URINE AUTO NEGATIVE (NEGATIVE); RBC, URINE AUTO 0 /HPF (0-3); SPECIFIC GRAVITY URINE AUTO 1.009 (1.002-1.035); SQUAMOUS EPITHELIAL CELL UR AU 0 /HPF (0-6); UROBILINOGEN, URINE AUTO 0.2 mg/dL (0.0-2.0); WBC, URINE AUTO 0 /HPF (0-3)
== END ==
LOC: M SMT 16:45
PROVIDERS: ATTEND Nurse Practitioner Women's Health
DX: R35.0 Frequency of micturition (principal)

== ENCOUNTER 2020-09-17 13:03 | Outpatient (RCR) | payer OTHER | END 2020-09-18 | LOC: M PT 13:03 | PROVIDERS: ATTEND Nurse Practitioner | DX: M54.30 Sciatica, unspecified side (principal) ==

== ENCOUNTER 2020-10-15 13:30 | Outpatient (RCR) | payer OTHER | END 2020-10-19 | LOC: M PT 13:30 | PROVIDERS: ATTEND Nurse Practitioner | DX: M54.40 Lumbago with sciatica, unspecified side (principal) ==

== ENCOUNTER → 2020-11-12 | Outpatient (CLI) | payer OTHER ==
[2020-11-12 10:56] LABS: FOLLICLE STIMULATING HORMONE 4.5 mIU/mL (1.4-18.1); LUTEINIZING HORMONE 4.3 mIU/mL (1.5-9.3)
[2020-11-13 16:08] LABS: TESTOSTERONE FREE (DIRECT) 11.9 pg/mL (6.8-21.5)
== END ==
LOC: M LAB 09:00
PROVIDERS: ATTEND Urology
DX: E29.1 Testicular hypofunction (principal)

== ENCOUNTER → 2020-11-26 | Outpatient (REF) | payer OTHER ==
[2020-11-26 20:24] LABS: APPEARANCE, URINE CLEAR (CLEAR); BACTERIA, URINE AUTO NEGATIVE (NEGATIVE); BILIRUBIN, URINE AUTO NEGATIVE (NEGATIVE); BLOOD, URINE BLOOD NEGATIVE (NEGATIVE); COLOR, URINE YELLOW (YELLOW); GLUCOSE, URINE (UA) AUTO NEGATIVE (NEGATIVE); KETONE, URINE AUTO NEGATIVE (NEGATIVE); LEUKOCYTE ESTERASE, URINE AUTO NEGATIVE (NEGATIVE); NITRITE, URINE AUTO NEGATIVE (NEGATIVE); PROTEIN, URINE AUTO NEGATIVE (NEGATIVE); RBC, URINE AUTO 0 /HPF (0-3); SPECIFIC GRAVITY URINE AUTO 1.012 (1.002-1.035); SQUAMOUS EPITHELIAL CELL UR AU 0 /HPF (0-6); UROBILINOGEN, URINE AUTO 0.2 mg/dL (0.0-2.0); WBC, URINE AUTO 0 /HPF (0-3)
== END ==
LOC: M SMT 17:03
PROVIDERS: ATTEND Urology
DX: R31.29 Other microscopic hematuria (principal)